=== PATIENT | male | born 1945 | race Caucasian/White ===

== ENCOUNTER 2017-06-07 10:40 | Emergency (ER) | payer MEDICARE, MEDICAID ==
[2017-06-07] MEDS ORDERED: ACETAMINOPHEN 500 MG TABLET PO ONE (11:27)
[2017-06-07] MEDS ORDERED: 0.9 % SODIUM CHLORIDE 1000ML 1,000 ML IV PRN (11:34)
--- NOTE | 2017-06-07 11:39 | Emergency Department Record ---
History of Present Illness - General Chief complaint: Weakness Stated complaint: WEAKNESS Time Seen by Provider: 06/07/17 11:06 Source: Patient, RN notes reviewed Mode of Arrival: EMS - History of Present Illness Initial comments: diarrhea and vomiting for three days and fever and weakness and came in by EMS. Abdomen not painful. right lower leg his red with cellulitis from foot and a heel ulcer. cough . Primary DR. Garcia Onset/Timin -: Days(s) Location: Generalized Improves with: Rest Worsens with: Exertion Context: Recent illness Associated Symptoms: Fever/chills, Other - Mehdi Coma Scale Eye Response: (4) Open spontaneously Motor Response: (6) Obeys commands Verbal Response: (5) Oriented [place] Total: 15 - Related Data Home Medications Medication Instructions Recorded Confirmed Last Taken Atorvastatin Calcium 10 mg PO DAILY 03/15/16 06/07/17 06/06/17 Gemfibrozil 600 mg PO BID 03/15/16 06/07/17 06/06/17 Previous Rx's Medication Instructions Recorded Diltiazem HCl [Cardizem Cd] 240 mg PO DAILY capcr 04/09/16 Furosemide [Lasix] 40 mg PO DAILY #30 tablet 04/09/16 Nystatin 1 gm TOP BID #30 cream 04/09/16 Allergies Allergy/AdvReac Type Severity Reaction Status Date / Time amoxicillin trihydrate AdvReac DIARRHEA Verified 06/07/17 11:09 [From Augmentin] potassium clavulanate AdvReac DIARRHEA Verified 06/07/17 11:09 [From Augmentin] Travel Screening - Travel/Exposure Within Last 30 Days Have you traveled within the last 30 days?: No - Travel/Exposure Within Last Year Have you traveled outside the [place] in the last year?: No - Additonal Travel Details Have you been exposed to anyone with a communicable illness?: No - Travel Symptoms Symptom Screening: None Review of Systems Reviewed: No additional complaints except as noted below Constitutional: Reports: As per HPI. Denies: Chills, Fever, Malaise, Night sweats, Weakness, Weight change Eyes: Reports: As per HPI. Denies: Eye discharge, Eye pain, Photophobia, Vision change ENT: Reports: As per HPI. Denies: Congestion, Dental pain, Ear pain, Epistaxis , Hearing loss, Throat pain Respiratory: Reports: As per HPI, Cough. Denies: Dyspnea, Hemoptysis, Stridor, Wheezes Cardiovascular: Reports: As per HPI. Denies: Arrhythmia, Chest pain, Dyspnea on exertion, Edema, Murmurs, Orthopnea, Palpitations, Paroxysmal nocturnal dyspnea, Rheumatic Fever, Syncope Endocrine: Reports: As per HPI. Denies: Fatigue, Heat or cold intolerance, Polydipsia, Polyuria Gastrointestinal: Reports: As per HPI, Diarrhea, Nausea, Vomiting. Denies: Abdominal pain, Constipation, Hematemesis, Hematochezia, Melena Genitourinary: Reports: As per HPI. Denies: Dysuria, Frequency, Hematuria, Incontinence, Retention, Testicular pain, Testicular mass, Urgency Musculoskeletal: Reports: As per HPI. Denies: Arthralgia, Back pain, Gout, Joint swelling, Myalgia, Neck pain Skin: Reports: As per HPI. Denies: Bruising, Change in color, Change in hair/ nails, Lesions, Pruritus, Rash Neurological: Reports: As per HPI. Denies: Abnormal gait, Confusion, Headache, Numbness, Paresthesias, Seizure, Tingling, Tremors, Vertigo, Weakness Psychiatric: Reports: As per HPI. Denies: Anxiety, Auditory hallucinations, Depression, Homicidal thoughts, Suicidal thoughts, Visual hallucinations Hematological/Lymphatic: Reports: As per HPI. Denies: Anemia, Blood Clots, Easy bleeding, Easy bruising, Swollen glands Past Medical History - SOCIAL HISTORY Smoking Status: Former smoker Alcohol Use: None Drug Use: None - RESPIRATORY Hx Respiratory Disorders: No - CARDIOVASCULAR Hx Cardio Disorders: Yes Hx Hypertension: Yes Hx Vascular Disease: Yes (left AKA amputation 2010 from DM) Comment:: high cholesterol - NEURO Hx Neuro Disorders: No Hx Seizures: No - GI Hx GI Disorders: No - Hx Genitourinary Disorders: No - ENDOCRINE Hx Endocrine Disorders: Yes Hx Diabetes: Yes (IDDM 2007 on lantus at home 85 units prior to hospitaliztion) Hx Thyroid Disease: No - MUSCULOSKELETAL Hx Musculoskeletal Disorders: No - PSYCH Hx Psych Problems: No - HEMATOLOGY/ONCOLOGY Hx Hematology/Oncology Disorders: No Family Medical History Any Significant Family History?: Yes Hx Cancer: Father Physical Exam - General General Appearance: Alert, Oriented x3, Cooperative, Mild distress - Head Head exam: Normal inspection - Eye Eye exam: Normal appearance, PERRL Pupils: Normal accommodation - ENT ENT exam: Normal exam, Mucous membranes moist, Normal external ear exam, Normal orophraynx, TM's normal bilaterally Ear exam: Normal external inspection. negative: External canal tenderness Nasal Exam: Normal inspection. negative: Discharge, Sinus tenderness Mouth exam: Normal external inspection, Tongue normal Teeth exam: Normal inspection. negative: Dental caries Throat exam: Normal inspection. negative: Tonsillar erythema, Tonsillar exudate - Neck Neck exam: Normal inspection, Full ROM. negative: Tenderness - Respiratory Respiratory exam: Normal lung sounds bilaterally. negative: Respiratory distress - Cardiovascular Cardiovascular Exam: Regular rate, Normal rhythm, Normal heart sounds - GI/Abdominal GI/Abdominal exam: Soft, Normal bowel sounds. negative: Tenderness - Rectal Rectal exam: Deferred - exam: Deferred - Extremities Extremities exam: Full ROM, Normal capillary refill, Other (redness of the right foot and lower leg and ulcer on the lateral heel area and small sacral decubitis). negative: Tenderness - Back Back exam: Reports: Normal inspection, Full ROM. Denies: Muscle spasm, Rash noted, Tenderness - Neurological Neurological exam: Alert, Normal gait, Oriented X3, Reflexes normal - Psychiatric Psychiatric exam: Normal affect, Normal mood - Skin Skin exam: Dry, Intact, Normal color, Warm Course Vital Signs 06/07/17 11:11 Temperature 103.2 F H Pulse Rate 110 H Respiratory 20 Rate Blood Pressure 119/62 Pulse Ox 94 L - Reevaluation(s) Reevaluation #1: discussed case with Dr. Walker and will transfer to [facility] 06/07/17 14:37 Medical Decision Making - Lab Data Result diagrams: 06/07/17 10:30 06/07/17 10:30 Disposition Clinical Impression: Cellulitis of leg Qualifiers: Laterality: right Qualified Code(s): L03.115 - Cellulitis of right lower limb Sepsis Qualifiers: Sepsis type: sepsis due to unspecified organism Qualified Code(s): A41.9 - Sepsis, unspecified organism Renal failure (ARF), acute on chronic Qualifiers: Acute renal failure type: unspecified Chronic kidney disease stage: stage 4 ( severe) Qualified Code(s): N17.9 - Acute kidney failure, unspecified; N18.4 - Chronic kidney disease, stage 4 (severe) Ulcerated, foot Qualifiers: Laterality: right Non-pressure ulcer stage: limited to breakdown of skin Qualified Code(s): L97.511 - Non-pressure chronic ulcer of other part of right foot limited to breakdown of skin Sacral decubitus ulcer Qualifiers: Pressure ulcer stage: unspecified pressure ulcer stage Qualified Code(s): L89.159 - Pressure ulcer of sacral region, unspecified stage Forms: Patient Portal Access Quality - Quality Measures Quality Measures: N/A - Blood Pressure Screening Blood Pressure Classification: Normal BP Reading Systolic Measurement: 119 Diastolic Measurement: 62 Screening for High Blood Pressure: < Normal BP, F/U Not Required > [[id number]] Normal BP Follow-up Interventions: No follow-up required
[2017-06-07 11:43] LABS: HEMATOCRIT 32.2 % (42.0-52.0); HEMOGLOBIN 10.8 gm/dl (14.0-18.0); MEAN CELL VOLUME 85.9 fl (81-97); MEAN CORPUSCULAR HEMOGLOBIN 28.8 pg (27-33); MEAN CORPUSCULAR HGB CONC 33.5 g/dl (32-36); MEAN PLATELET VOLUME 9.9 fl (7.4-10.4); PLATELET COUNT 328 K/uL (130-400); RED BLOOD COUNT 3.75 M/uL (4.40-5.70); RED CELL DISTRIBUTION WIDTH 14.9 % (11.5-14.5); WHITE BLOOD COUNT W/O DIFF 18.5 K/uL (4.2-12.2)
[2017-06-07 11:59] LABS: PLATELET ESTIMATE NORMAL (NORMAL)
[2017-06-07 12:09] LABS: ALBUMIN 3.9 gm/dL (3.5-5.0); ANION GAP 17.4 (7-16); BILIRUBIN,TOTAL 1.03 mg/dL (0.2-1.3); CARBON DIOXIDE 15.6 mmol/L (22-30); CREATININE 3.6 mg/dL (0.66-1.25); TOTAL PROTEIN 7.6 gm/dL (6.3-8.2)
[2017-06-07 13:41] LABS: URINE APPEARANCE CLEAR; URINE BILIRUBIN NEGATIVE (NEGATIVE); URINE BLOOD SMALL (NEGATIVE); URINE COLOR YELLOW; URINE GLUCOSE (UA) NEGATIVE (NEGATIVE); URINE KETONE NEGATIVE (NEGATIVE); URINE LEUKOCYTE ESTERASE NEGATIVE (NEGATIVE); URINE NITRITE NEGATIVE (NEGATIVE); URINE UROBILINOGEN 0.2 E.U./dL (0.20 - 1.00)
[2017-06-07] MEDS ORDERED: 0.9 % SODIUM CHLORIDE 1000ML 1,000 ML IV ONE (13:42)
[2017-06-07] MEDS ORDERED: LEVOFLOXACIN/D5W 750 MG/150 ML BAG IVPB ONE (13:43)
[2017-06-07 13:53] LABS: URINE AMORPHOUS SEDIMENT 2+; URINE EPITHELIAL CELLS NONE SEEN (FEW); URINE WBC NONE SEEN (0-2/hpf)
--- NOTE | 2017-06-08 12:14 | RADIOLOGY REPORT ---
EXAM: CHEST, TWO VIEWS HISTORY: COUGH. TECHNIQUE: Frontal and lateral views of the chest were performed. FINDINGS: The heart size is normal. The lung devries are clear. The osseous structures are normal. IMPRESSION: NO ACUTE DISEASE PROCESS. JOB NUMBER: [id number] MTDD
== END 2017-06-07 15:29 | disposition short-term general hospital (02) ==
LOC: ER 10:40
DX: A41.9 Sepsis, unspecified organism (principal); L03.115 Cellulitis of right lower limb; L89.150 Pressure ulcer of sacral region, unstageable; Z79.4 Long term (current) use of insulin; R19.7 Diarrhea, unspecified; N17.9 Acute kidney failure, unspecified; N18.4 Chronic kidney disease, stage 4 (severe); I10 Essential (primary) hypertension; Z87.891 Personal history of nicotine dependence
CPT/HCPCS: 99285 ×2; 96374; 96361; 83690; 80076; 80048; 81001; 87493; 85027; 71020; J1956

== ENCOUNTER 2017-06-19 19:24 | Inpatient (IN) | payer MEDICARE, SELFPAY ==
[2017-06-19] MEDS ORDERED: ONDANSETRON 4 MG ODT TABLET SL PRN (22:49)
[2017-06-19] MEDS ORDERED: DIPHENHYDRAMINE HCL 25 MG CAPSULE PO PRN (22:49)
[2017-06-19] MEDS ORDERED: ACETAMINOPHEN 500 MG TABLET PO PRN (22:49)
[2017-06-19] MEDS ORDERED: NYSTATIN 15 GM POWDER TP PRN (23:17)
[2017-06-19] MEDS: GEMFIBROZIL 600 MG TABLET PO SCH (23:56)
[2017-06-19] MEDS: METRONIDAZOLE 250 MG TABLET PO SCH (23:56)
[2017-06-20] MEDS: CEFAZOLIN 2 Gram 2 GM/50 ML BAG IVPB SCH ×3 (02:25→18:04)
[2017-06-20] MEDS: PANTOPRAZOLE SODIUM 40 MG TABLET PO SCH ×2 (06:42→18:05)
[2017-06-20] MEDS: METRONIDAZOLE 250 MG TABLET PO SCH ×3 (06:42→22:01)
[2017-06-20] MEDS: NOVOLOG FLEXPEN (INSULIN ASPART) 100 UNITS/ML SQ SCH ×4 (08:36→22:03)
[2017-06-20] MEDS: LEVEMIR FLEXTOUCH 100 UNIT/ML INSULIN PEN SQ SCH ×3 (08:43→18:35)
[2017-06-20] MEDS: LISINOPRIL 10 MG TABLET PO SCH (09:24)
[2017-06-20] MEDS: GEMFIBROZIL 600 MG TABLET PO SCH ×2 (09:24→22:00)
[2017-06-20] MEDS: ENOXAPARIN 30 MG/0.3 ML SYR SQ SCH (09:26)
[2017-06-20] MEDS: HEPARIN SODIUM FLUSH 100 UNITS/ML SYR 5ML IVP PRN ×2 (11:04→18:35)
[2017-06-20] MEDS: 0.9 % SODIUM CHLORIDE 10ML SYR IVP SCH ×5 (11:04→22:01)
--- NOTE | 2017-06-20 15:12 | History & Physical ---
History of Present Illness - Date Date of Service for History & Physical: 06/20/17 - History of Present Illness Admitting Diagnosis: diabetic foot ulcer with osteomyelitis. Diabetes mellitus type 2 with insulin use. Left AKA 2010. PAD. hypercholesterolemia. hypertension arthritis of both hands History of Present Illness: Patient developed a right foot ulcer with sepsis and seen At [facility] ED and transferred to [facility] and started on IV therapy with Infectious Disease Dr. Roque. Patient at [facility] for about 10 days and has a pic line and on 8 weeks of cefazolin 2 gms every 8 hours and oral flagyl 500 mg every 8 hours for [address] Garcia and Infectious disease Dr. Roque and he wanted to see him in 2-4 weeks. Patient is here because of deconditioning and IV antibiotics. 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 Level of Education: High School Preferred Method of Learning: Seeing Comprehension Ability: No Impairment Able to Read: Yes Able to Write: No (arthritis in hand) Select best description of speech pattern: Clear Speech Ability to express ideas and wants: Understood Understanding verbal content: Understands - Mood and Behavior Patterns Appearance: Disheveled Mood: Normal Attitude: Cooperative Motor Activity: Calm Affect: Appropriate Hallucinations: Denies - Psychosocial Well-Being Usual Living Arrangement: Spouse - Physical Functioning Activity Level: Up with assist x1 Turning: Self ad melida ROM Ability: Within Normal Limits Assistive Devices: Wheel Chair Ambulation Ability: Needs Assist Bed Mobility: Independent Transfer Ability: Needs Assist Bathing Ability: Needs Assist Personal Hygiene: Needs Assist Dressing Ability: Needs Assist Eating (Feeding) Ability: Independent Toileting Ability: Needs Assist Administer Own Medication: Independent - Continence Bowel Pattern: Diarrhea Bladder Pattern: Normal - Dental Status Unable to examine: No Broken or loosely fitting full or partial dentures: Yes No natural teeth or tooth fragment(s) (edentulous): No Abnormal mouth tissue (ulcers, masses, oral lesions, etc.): No Obvious or likely cavity or broken natural teeth: No Inflamed or bleeding gums or loose natural teeth: No Mouth/facial pain, discomfort or difficulty chewing: No - Nutrition Screening Poor oral intake > 1 week: No Unplanned weight loss in specified time frame: No Nutrition Support via tube feedings or parenteral nutrition: No Pressure Ulcer: Yes Significantly underweight define as BMI <18.5 kg/m2: No Albumin <2.5mg/dL: No Persistent nausea/vomiting/diarrhea >3 days: Yes Difficulty chewing/swallowing/mouth sores: No Admitting Diagnosis: No Nutrition Risk Score: High Risk Review of Systems Reviewed: No additional complaints except as noted below Constitutional: Reports: As per HPI. Denies: Chills, Fever, Malaise, Night sweats, Weakness, Weight change Eyes: Reports: As per HPI. Denies: Eye discharge, Eye pain, Photophobia, Vision change ENT: Reports: As per HPI. Denies: Congestion, Dental pain, Ear pain, Epistaxis , Hearing loss, Throat pain Respiratory: Reports: As per HPI. Denies: Cough, Dyspnea, Hemoptysis, Stridor, Wheezes Cardiovascular: Reports: As per HPI. Denies: Arrhythmia, Chest pain, Dyspnea on exertion, Edema, Murmurs, Orthopnea, Palpitations, Paroxysmal nocturnal dyspnea, Rheumatic Fever, Syncope Endocrine: Reports: As per HPI. Denies: Fatigue, Heat or cold intolerance, Polydipsia, Polyuria Gastrointestinal: Reports: As per HPI. Denies: Abdominal pain, Constipation, Diarrhea, Hematemesis, Hematochezia, Melena, Nausea, Vomiting Genitourinary: Reports: As per HPI. Denies: Dysuria, Frequency, Hematuria, Incontinence, Retention, Testicular pain, Testicular mass, Urgency Musculoskeletal: Reports: As per HPI. Denies: Arthralgia, Back pain, Gout, Joint swelling, Myalgia, Neck pain Skin: Reports: As per HPI, Other (ulceration on the lateral side of right foot with black escar and skin is peeling, also on sacrum excoriated are times two and no ulers seen). Denies: Bruising, Change in color, Change in hair/nails, Lesions, Pruritus, Rash Neurological: Reports: As per HPI. Denies: Abnormal gait, Confusion, Headache, Numbness, Paresthesias, Seizure, Tingling, Tremors, Vertigo, Weakness Psychiatric: Reports: As per HPI. Denies: Anxiety, Auditory hallucinations, Depression, Homicidal thoughts, Suicidal thoughts, Visual hallucinations Hematological/Lymphatic: Reports: As per HPI. Denies: Anemia, Blood Clots, Easy bleeding, Easy bruising, Swollen glands Past Medical History - SOCIAL HISTORY Smoking Status: Former smoker Alcohol Use: None - SURGICAL HISTORY Past Surgical History: Left Above knee amputation 2006. bowel resection 2016 - RESPIRATORY Hx Respiratory Disorders: No - CARDIOVASCULAR Hx Cardio Disorders: Yes Hx Hypertension: Yes Hx Vascular Disease: Yes (left AKA amputation 2010 from DM) Comment:: high cholesterol - NEURO Hx Neuro Disorders: No Hx Seizures: No - GI Hx GI Disorders: No - Hx Genitourinary Disorders: No - ENDOCRINE Hx Endocrine Disorders: Yes Hx Diabetes: Yes (IDDM 2006 on lantus at home 85 units prior to hospitaliztion) Hx Thyroid Disease: No - MUSCULOSKELETAL Hx Musculoskeletal Disorders: No Hx Arthritis: Yes (both hands) - PSYCH Hx Psych Problems: No - HEMATOLOGY/ONCOLOGY Hx Hematology/Oncology Disorders: No Family Medical History Any Significant Family History?: Yes Hx Cancer: Father H&P Meds/Allergies - Allergies Allergies: Allergies Allergy/AdvReac Type Severity Reaction Status Date / Time amoxicillin trihydrate AdvReac DIARRHEA Verified 06/07/17 11:09 [From Augmentin] potassium clavulanate AdvReac DIARRHEA Verified 06/07/17 11:09 [From Augmentin] - Home Medications Home Medications Medication Instructions Recorded Confirmed Last Taken Atorvastatin Calcium 10 mg PO DAILY 03/15/16 06/07/17 06/06/17 Gemfibrozil 600 mg PO BID 03/15/16 06/07/17 06/06/17 Previous Rx's Medication Instructions Recorded Diltiazem HCl [Cardizem Cd] 240 mg PO DAILY capcr 04/09/16 Furosemide [Lasix] 40 mg PO DAILY #30 tablet 04/09/16 Nystatin 1 gm TOP BID #30 cream 04/09/16 - Active Medications Active Medications: Current Medications Acetaminophen (Tylenol 500mg Tab) 1,000 mg PO Q6H PRN PRN Reason: Fever >101 Atorvastatin Calcium (Lipitor) 10 mg PO QHS [facility] Diphenhydramine HCl (Benadryl Capsule) 25 mg PO Q6H PRN PRN Reason: ITCHING Enoxaparin Sodium (Lovenox) 30 mg SQ DAILY [facility] Last Admin: 06/20/17 09:26 Dose: 30 mg Gemfibrozil (Lopid) 600 mg PO BID [facility] Last Admin: 06/20/17 09:24 Dose: 600 mg Heparin Sodium (Porcine) () 500 unit IVP Q6HR PRN PRN Reason: iv flush Last Admin: 06/20/17 11:04 Dose: 500 unit Cefazolin Sodium (Kefzol) 2 gm in 50 mls @ 100 mls/hr IVPB Q8H [facility] Stop: 08/13/17 00:00 Last Infusion: 06/20/17 11:08 Dose: Infused Insulin Aspart (Novolog Flexpen) 1 unit SQ QIDINS [facility] PRN Reason: Protocol Last Admin: 06/20/17 13:27 Dose: 2 unit Insulin Detemir (Levemir Flextouch) 5 unit SQ BIDWM [facility] Last Admin: 06/20/17 08:46 Dose: Not Given Lisinopril (Zestril) 40 mg PO DAILY [facility] Last Admin: 06/20/17 09:24 Dose: 40 mg Metronidazole (Flagyl) 500 mg PO Q8H [facility] Last Admin: 06/20/17 06:42 Dose: 500 mg Nystatin (Nystop) 15 gm TP TID PRN PRN Reason: rash Ondansetron HCl (Zofran Odt) 4 mg SL Q6H PRN PRN Reason: NAUSEA/VOMITING Pantoprazole Sodium (Protonix) 40 mg PO BIDAC [facility] Last Admin: 06/20/17 06:42 Dose: 40 mg Sodium Chloride () 10 ml IVP Q8HR [facility] Last Admin: 06/20/17 11:04 Dose: 10 ml Physical Exam - Vital Signs Vital Signs: Vital Signs - Last 24 Hrs Temp Pulse Resp BP Pulse Ox 06/20/17 08:00 93 H 14 142/88 99 06/19/17 19:45 98.8 F 06/19/17 19:31 95 H 18 142/72 98 - General General Appearance: Alert, Oriented x3, Cooperative, No acute distress - Head Head exam: Normal inspection - Eye Eye exam: Normal appearance, PERRL Pupils: Normal accommodation - ENT ENT exam: Normal exam, Mucous membranes moist, Normal external ear exam, Normal orophraynx, TM's normal bilaterally Ear exam: Normal external inspection. negative: External canal tenderness Nasal Exam: Normal inspection. negative: Discharge, Sinus tenderness Mouth exam: Normal external inspection, Tongue normal Teeth exam: Normal inspection, Other (multiple teeth gone). negative: Dental caries Throat exam: Normal inspection. negative: Tonsillar erythema, Tonsillar exudate - Neck Neck exam: Normal inspection, Full ROM. negative: Tenderness - Respiratory Respiratory exam: Normal lung sounds bilaterally. negative: Respiratory distress - Cardiovascular Cardiovascular Exam: Regular rate, Normal rhythm, Normal heart sounds - GI/Abdominal GI/Abdominal exam: Soft, Normal bowel sounds. negative: Tenderness - Rectal Rectal exam: Deferred - exam: Deferred - Extremities Extremities exam: Full ROM, Normal capillary refill, Other (left leg above the knee). negative: Tenderness - Back Back exam: Reports: Normal inspection, Full ROM. Denies: Muscle spasm, Rash noted, Tenderness - Neurological Neurological exam: Alert, Normal gait, Oriented X3, Reflexes normal - Psychiatric Psychiatric exam: Normal affect, Normal mood - Skin Skin exam: Other (draining ulceration right later foot with loose skin and using luis carlos cream(collagenase),black escar and picture taken ) H&P Results - Labs Labs Last 24 Hours: Laboratory Results - last 24 hr 06/19/17 06/20/17 06/20/17 21:55 07:47 11:33 POC Glucose 154 H 142 H 224 H Discharge Potential - Discharge Needs Patient Discharge Plan Description: Return Home Plan - Swing Bed Certification Initial Certification Due: 06/19/17 14 Day Re-Cert Due: 07/03/17 44 Day Re-Cert Due: 08/02/17 74 Day Re-Cert Due: 09/01/17 - Detailed Diagnosis and Plan (1) Physical deconditioning Current Visit: No Status: Acute Base Code: R53.81 - OTHER MALAISE Priority : High Comment: discharge tomorrow and doing well (2) Diabetes Current Visit: No Status: Acute Qualifiers: Diabetes mellitus type: type 2 Diabetes mellitus complication status: with kidney complications Diabetes mellitus complication detail: with chronic kidney disease Diabetes mellitus terminal operations supervisor insulin use: with mcc use Chronic kidney disease stage: stage 4 (severe) Qualified Code(s): E11.22 - Type 2 diabetes mellitus with diabetic chronic kidney disease; N18.4 - Chronic kidney disease, stage 4 (severe); Z79.4 - snf (current) use of insulin Base Code: E11.9 - TYPE 2 DIABETES MELLITUS WITHOUT COMPLICATIONS Priority: Medium (3) Ulcerated, foot Current Visit: Yes Status: Acute Qualifiers: Laterality: right Non-pressure ulcer stage: limited to breakdown of skin Qualified Code(s): L97.511 - Non-pressure chronic ulcer of other part of right foot limited to breakdown of skin Base Code: L97.509 - NON-PRESSURE CHRONIC ULCER OTH PRT UNSP FOOT W UNSP SEVERITY Priority: High (4) Osteomyelitis of foot, acute Current Visit: Yes Status: Acute Base Code: M86.179 - OTHER ACUTE OSTEOMYELITIS, UNSPECIFIED ANKLE AND FOOT Priority: High Onset Date: ~ (5) History of sepsis Current Visit: Yes Status: Acute Base Code: Z86.19 - PERSONAL HISTORY OF OTHER INFECTIOUS AND PARASITIC DISEASES Priority: High Onset Date: ~ (6) Hypertension Current Visit: Yes Status: Acute Qualifiers: Hypertension type: essential hypertension Qualified Code(s): I10 - Essential (primary) hypertension Base Code: I10 - ESSENTIAL (PRIMARY) HYPERTENSION Priority: Low (7) PAD (peripheral artery disease) Current Visit: Yes Status: Acute Base Code: I73.9 - PERIPHERAL VASCULAR DISEASE, UNSPECIFIED Priority: Medium (8) CRF (chronic renal failure) Current Visit: No Status: Acute Qualifiers: Chronic kidney disease stage: stage 4 (severe) Qualified Code(s): N18.4 - Chronic kidney disease, stage 4 (severe) Base Code: N18.9 - CHRONIC KIDNEY DISEASE, UNSPECIFIED Priority: Medium Comment: discharge tomorrow (9) Cellulitis of leg Current Visit: Yes Status: Acute Qualifiers: Laterality: right Qualified Code(s): L03.115 - Cellulitis of right lower limb Base Code: L03.119 - CELLULITIS OF UNSPECIFIED PART OF LIMB Priority: Low
[2017-06-20] MEDS: ATORVASTATIN 20 MG TABLET PO SCH (22:00)
[2017-06-21] MEDS: CEFAZOLIN 2 Gram 2 GM/50 ML BAG IVPB SCH ×3 (02:05→20:08)
[2017-06-21] MEDS: HEPARIN SODIUM FLUSH 100 UNITS/ML SYR 5ML IVP PRN ×2 (02:49→12:02)
[2017-06-21] MEDS: 0.9 % SODIUM CHLORIDE 10ML SYR IVP SCH ×4 (02:49→21:42)
[2017-06-21] MEDS: PANTOPRAZOLE SODIUM 40 MG TABLET PO SCH ×2 (06:23→16:22)
[2017-06-21] MEDS: METRONIDAZOLE 250 MG TABLET PO SCH ×3 (06:24→22:07)
[2017-06-21 06:32] LABS: HEMATOCRIT 22.8 % (42.0-52.0); MEAN CELL VOLUME 90.5 fl (81-97); MEAN CORPUSCULAR HGB CONC 31.1 g/dl (32-36); PLATELET COUNT 383 K/uL (130-400); RED BLOOD COUNT 2.52 M/uL (4.40-5.70); RED CELL DISTRIBUTION WIDTH 14.8 % (11.5-14.5); WHITE BLOOD COUNT W/O DIFF 10.9 K/uL (4.2-12.2)
[2017-06-21 06:33] LABS: MEAN CORPUSCULAR HEMOGLOBIN 28.1 pg (27-33)
[2017-06-21 06:34] LABS: HEMOGLOBIN 7.1 gm/dl (14.0-18.0)
[2017-06-21 06:37] LABS: ANION GAP 9.4 (7-16); CARBON DIOXIDE 20.6 mmol/L (22-30); CREATININE 2.2 mg/dL (0.66-1.25)
[2017-06-21] MEDS: NOVOLOG FLEXPEN (INSULIN ASPART) 100 UNITS/ML SQ SCH ×4 (08:23→21:43)
[2017-06-21] MEDS: LEVEMIR FLEXTOUCH 100 UNIT/ML INSULIN PEN SQ SCH ×2 (08:24→20:16)
[2017-06-21] MEDS: GEMFIBROZIL 600 MG TABLET PO SCH ×2 (10:01→21:43)
[2017-06-21] MEDS: LISINOPRIL 10 MG TABLET PO SCH (10:01)
[2017-06-21] MEDS: ENOXAPARIN 30 MG/0.3 ML SYR SQ SCH (10:02)
--- NOTE | 2017-06-21 13:25 | Rehab Evaluation ---
Patient Information - Patient Information Diagnosis: Deconditioning IV ABX due to sepsis Ordered Treatment: PT Evaluate and Treat Status: Initial Evaluation Surgery: No History: Detail (Pt. reports history of above the knee amputation, pressure sores, sensory impairment RLE. PICC line inserted.) Past Med/Lilian Hx Detail: Detail (Above the knee amputation. Please see additional intake forms. Pt. reports that he is "legally blind".) Past Medical/Surgical Hx: PAST MEDICAL/SURGICAL HISTORY Past Surgical History Left Above knee amputation 2006 bowel resection 2015 PMH - Respiratory Hx Respiratory Disorders No PMH - Cardiovascular Hx Cardiovascular Disorders Yes Hx Hypertension Yes Hx Vascular Disease Yes: left AKA amputation 2009 from [facility] Comment: high cholesterol PMH - Neuro Hx Neurological Disorders No Hx Seizures No Hx Weakness Yes: deconditioned from hospitaliztion PMH - GI Hx Gastrointestinal Disorders No PMH - Hx Genitourinary Disorders No PMH - Endocrine Hx Endocrine Disorders Yes Hx Diabetes 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 reports independence with transfers except bathroom transfers. Pt. reports his assists him with bathroom transfers. Pt. reports that he has not had a fall to date.) Social History: Detail (Pt. lives with his in a single story apartment and has no steps leading into the home. Pt. has an elevated toilet seat, grab bars, shower chair, wheel chair, and front wheeled walker.) Precautions: [place], Fall - Time With Patient Total Time Spent With Patient (Min): 55 Treatment Procedures: Detail (Physical Therapy Evaluation Completed) Subjective Information - Subjective Information Per Patient (Pt. denies pain. He does report decreased sensation at the RLE.) Objective Data - Pain Pain Present: No - Mental Status Patient Orientation: Oriented x3 - Visual Perception Deficit - ROM Other (Within funtional limits except for wrists secondary to stiffness. He does report arthritis at the hands.) - Strength/Tone Within normal limits - Coordination Appears within normal limits for therapeutic activities - Bed Mobility Needs Assist (Bed mobility not assessed.) - Transfers Independent (Pt. was independent with sit to stand transfer. He did require verbal cueing to appropriately position his upper extremities.) - Balance Balance Sitting: Good Balance Standing: Fair (Pt. exhibits forward trunk lean and requires heavily on his upper extremities to remain upright. He was unable to stand upright and maintain midline positioning.) - Sensation Deficit (Pt. unable to feel the temperature of the floor with his RLE, although the extremity was heavily wrapped following debridement from wound care performed at [facility].) - Gait Detail (Not assessed.) - ADL's/IADL's Detail (Pt. was not assessed for donning and doffing clothing.) - Special Tests Yes (Negative Dennis's, RLE.) Therapy Assessment - Therapy Assessment Detail (Pt. exhibits balance impairment and poor safety awareness with transfers. He does appear to have functional extremity strength, however, needs to be further assessed for safety and functionality with bed mobility and standing for bed transfers while independent. The pt. presents with normal temperature at the right foot and does not exhibit signs of infection/wound compromise. Pt. exhibits low back/sacral ulcers that were covered; they did not present with warmth, streaking, or drainage outside of the bandage borders. The ulcers were covered and a pillow was placed to relieve pressure.) Patient Education - Patient Education Teaching Topic: Equipment Use Response: Return Demonstration Teaching Method: Discussion, Demonstration Teaching Recipient: Patient Barriers To Learning: None Problem List - Problem List Physical Therapy Problem List: Detail (1) Balance impairment 2) Poor safety awareness 3) Inability to assess gait 4) Inability to assess bed mobility 5) LE diminished sensation) Goals - Goals Physical Therapy Goals: 1) Pt. will exhibit good understanding of body mechanics /safety awareness with all transfers. 2) Pt. will be independent with all transfers except shower transfers. 3) Pt. will be independent with bed mobility. 4) Pt. will verbalize and demonstrate repositioning techniques while seated to decrease pressure at the sacrum/lower back. Prognosis - Prognosis Good Plan - Plan Physical Therapy Plan: Pt. will be seen 1-2x per day for inpatient physical therapy until goals met.
--- NOTE | 2017-06-21 14:47 | Rehab Evaluation ---
Patient Information - Patient Information Diagnosis: diabetic foot ulcer with osteomyelitis Ordered Treatment: OT Evaluate and Treat Status: Initial Evaluation Surgery: No History: Detail (Pt. reports history of above the knee amputation, pressure sores, sensory impairment RLE. PICC line inserted.) Past Med/Lilian Hx Detail: Detail (Above the knee amputation. Please see additional intake forms. Pt. reports that he is "legally blind".) Past Medical/Surgical Hx: PAST MEDICAL/SURGICAL HISTORY Past Surgical History Left Above knee amputation 2006 bowel resection 2016 PMH - Respiratory Hx Respiratory Disorders No PMH - Cardiovascular Hx Cardiovascular Disorders Yes Hx Hypertension Yes Hx Vascular Disease Yes: left AKA amputation 2009 from [facility] Comment: high cholesterol PMH - Neuro Hx Neurological Disorders No Hx Seizures No Hx Weakness Yes: deconditioned from hospitaliztion PMH - GI Hx Gastrointestinal Disorders No PMH - Hx Genitourinary Disorders No PMH - Endocrine Hx Endocrine Disorders Yes Hx 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 He has an elevated toilet seat with grab bars, a walk in shower with a shower chair and grab bars as well as a wheelchair and front wheeled walker. He is Ind with self cares with the exception of transferring into the shower, his assists him. He and spouse share home mgmt, meal prep and laundry. Pt uses wheelchair for all mobility except transferring to toilet at which time he uses the walker.) Precautions: [place], Fall, Other (Legally blind) - Time With Patient Total Time Spent With Patient (Min): 60 Treatment Procedures: Detail (OT eval low complexity) Subjective Information - Subjective Information Per Patient Objective Data - Pain Pain Present: No - Mental Status Patient Orientation: Oriented x3 - Visual Perception Deficit (Pt reports he is legally blind, he cannot read but he can see larger objects.) - ROM Not within normal limits (Toño shoulders and elbows WNL AROM, toño wrists and hands present with arthritis and he has stiffness in all fingers. Pt reports this is longstanding.) - Strength/Tone Within normal limits (Toño UE MMT 5/5 throughout.) - Coordination Deficit (Pt has longstanding h/o decreased finger motion due to arthritis, he had moderate difficulty holding razor and was unable to open shaving cream container.) - Transfers Needs Assist (Sit to stand from wheelchair with verbal cues and use of walker.) - Balance Balance Sitting: Good Balance Standing: Poor - Sensation Intact - Gait Detail (Pt able to static stand for several seconds. Gait was not assesses as pt was very minimally ambulatory prior to admission.) - ADL's/IADL's Detail (Pt reports he has been completing toileting with SBA from nursing. He was able to complete shaving at sink with set up, assist to open shaving cream and minimal assist due to difficulty holding razor.) Therapy Assessment - Therapy Assessment Detail (Pt presents with decreased Ind with self cares including total body dressing, showering and grooming/hygiene as well as decreased functional mobility needed for safe and Ind return home with .) Problem List - Problem List Physical Therapy Problem List: Detail (1) Balance impairment 2) Poor safety awareness 3) Inability to assess gait 4) Inability to assess bed mobility 5) LE diminished sensation) Occupational Therapy Problem List: Detail (1. Decreased Ind with showering 2. Decreased Ind with total body dressing 3. Decreased coordination needed for Ind ADLs 4. Decreased functional mobility needed for safe and Ind return home) Goals - Goals Physical Therapy Goals: 1) Pt. will exhibit good understanding of body mechanics /safety awareness with all transfers. 2) Pt. will be independent with all transfers except shower transfers. 3) Pt. will be independent with bed mobility. 4) Pt. will verbalize and demonstrate repositioning techniques while seated to decrease pressure at the sacrum/lower back. Occupational Therapy Goals: 1. Pt will be safe and Ind with showering in sitting 2. Pt will be Ind with total body dressing 3. Pt will improve coordination to allow Ind with grooming/hygiene tasks 4. Pt will be safe and Ind with functional mobility needed for ADLs/IADLs. Prognosis - Prognosis Good Plan - Plan Physical Therapy Plan: Pt. will be seen 1-2x per day for inpatient physical therapy until goals met. Occupational Therapy Plan: OT 1-4 times per week to address self cares, functional mobility, UE coordination needed for safe and Ind return home.
[2017-06-21] MEDS: FERROUS SULFATE 325 MG TAB PO SCH (16:22)
[2017-06-21] MEDS: ASCORBIC ACID 500 MG TAB PO SCH (16:22)
[2017-06-21] MEDS: ATORVASTATIN 20 MG TABLET PO SCH (21:42)
[2017-06-22] MEDS: CEFAZOLIN 2 Gram 2 GM/50 ML BAG IVPB SCH ×3 (06:35→22:18)
[2017-06-22] MEDS: 0.9 % SODIUM CHLORIDE 10ML SYR IVP SCH ×3 (06:39→22:19)
[2017-06-22] MEDS: PANTOPRAZOLE SODIUM 40 MG TABLET PO SCH ×2 (06:42→17:34)
[2017-06-22] MEDS: METRONIDAZOLE 250 MG TABLET PO SCH ×3 (07:06→22:22)
[2017-06-22] MEDS: NOVOLOG FLEXPEN (INSULIN ASPART) 100 UNITS/ML SQ SCH ×4 (08:40→22:25)
[2017-06-22] MEDS: LEVEMIR FLEXTOUCH 100 UNIT/ML INSULIN PEN SQ SCH ×2 (08:41→17:36)
[2017-06-22] MEDS: GEMFIBROZIL 600 MG TABLET PO SCH ×2 (09:25→22:22)
[2017-06-22] MEDS: FERROUS SULFATE 325 MG TAB PO SCH (09:25)
[2017-06-22] MEDS: ENOXAPARIN 30 MG/0.3 ML SYR SQ SCH (09:25)
[2017-06-22] MEDS: ASCORBIC ACID 500 MG TAB PO SCH (09:26)
[2017-06-22] MEDS: COLLAGENASE 30 GM TUBE TOP SCH (09:26)
[2017-06-22] MEDS: LISINOPRIL 10 MG TABLET PO SCH (09:27)
--- NOTE | 2017-06-22 11:10 | Physical Therapy Tx Note ---
Physical Therapy Tx Note - Treatment Note Tolerated: Good Total Time Spent With Patient: 30 Physical Therapy Tx Note: Detail (The patient was up in a chair when PT arrived. The patient completed wheelchair to bed transfer independently using front approach with supervision for safety only. The patient was independent with supine to and from sit transfer and scooting up in bed with use of trapeze. LE exercises were completed including: R ankle pumps , SLR, supine hip abduction , gluteal sets, L isometric hip flexors and gluteals and hip abduction. The patient was independent with wheelchair mobility a distance of 180 feet x 1.) Physical Therapy Problem List: Detail (1) Balance impairment 2) Poor safety awareness 3) Inability to assess gait 4) Inability to assess bed mobility 5) LE diminished sensation) Physical Therapy Goals: 1) Pt. will exhibit good understanding of body mechanics /safety awareness with all transfers. 2) Pt. will be independent with all transfers except shower transfers. 3) Pt. will be independent with bed mobility. 4) Pt. will verbalize and demonstrate repositioning techniques while seated to decrease pressure at the sacrum/lower back. Physical Therapy Plan: Pt. will be seen 1-2x per day for inpatient physical therapy until goals met.
--- NOTE | 2017-06-22 15:14 | Occupational Therapy Tx Note ---
Occupational Therapy Tx Note - Treatment Note Tolerated: Good Total Time Spent With Patient: 45 (ADL) Occupational Therapy Treatment Note: Detail (S: Pt feeling well this am. O: Supine to sit Indly. Stand pivot transfer from EOB to wheelchair with CG assist. Pt propelled self to shower and completed pivot transfer to shower bench with CG assist. Pt completed shower in sitting with min assist for opening small shampoo container and to manipulate hand held shower due to decreased hand coordination. Pt able to dry self Indly. Pivot transferred to wheelchair and then to commode with CG assist. Completed toileting with max assist for pericare. Pt reports his toilet set up at home allows more room for toileting hygiene. Pt donned gown with mod assist. Pt combed hair Indly. Propelled back to room per therapist. Pt left up in chair with breakfast. A: CG assist for pivot transfers, max assist for toileting hygiene, min assist for showering due to decreased hand coordination) Occupational Therapy Problem List: Detail (1. Decreased Ind with showering 2. Decreased Ind with total body dressing 3. Decreased coordination needed for Ind ADLs 4. Decreased functional mobility needed for safe and Ind return home) Occupational Therapy Goals: 1. Pt will be safe and Ind with showering in sitting 2. Pt will be Ind with total body dressing 3. Pt will improve coordination to allow Ind with grooming/hygiene tasks 4. Pt will be safe and Ind with functional mobility needed for ADLs/IADLs. Prognosis: Good Occupational Therapy Plan: OT 1-4 times per week to address self cares, functional mobility, UE coordination needed for safe and Ind return home.
[2017-06-22] MEDS: ATORVASTATIN 20 MG TABLET PO SCH (22:19)
[2017-06-23] MEDS: CEFAZOLIN 2 Gram 2 GM/50 ML BAG IVPB SCH ×3 (06:18→22:41)
[2017-06-23] MEDS: 0.9 % SODIUM CHLORIDE 10ML SYR IVP SCH ×3 (06:18→22:42)
[2017-06-23] MEDS: PANTOPRAZOLE SODIUM 40 MG TABLET PO SCH ×2 (06:19→15:46)
[2017-06-23] MEDS: METRONIDAZOLE 250 MG TABLET PO SCH ×3 (06:19→22:41)
[2017-06-23] MEDS: NOVOLOG FLEXPEN (INSULIN ASPART) 100 UNITS/ML SQ SCH ×4 (08:05→22:42)
[2017-06-23] MEDS: LEVEMIR FLEXTOUCH 100 UNIT/ML INSULIN PEN SQ SCH ×2 (08:06→17:46)
[2017-06-23] MEDS: FERROUS SULFATE 325 MG TAB PO SCH (09:47)
[2017-06-23] MEDS: GEMFIBROZIL 600 MG TABLET PO SCH ×2 (09:48→22:41)
[2017-06-23] MEDS: ENOXAPARIN 30 MG/0.3 ML SYR SQ SCH (09:48)
[2017-06-23] MEDS: ASCORBIC ACID 500 MG TAB PO SCH (09:49)
[2017-06-23] MEDS: COLLAGENASE 30 GM TUBE TOP SCH (09:49)
[2017-06-23] MEDS: LISINOPRIL 10 MG TABLET PO SCH (09:49)
--- NOTE | 2017-06-23 10:46 | Physical Therapy Tx Note ---
Physical Therapy Tx Note - Treatment Note Tolerated: Good Total Time Spent With Patient: 25 Physical Therapy Tx Note: Detail (The patient transferred wheelchair to and from bed with supervision for safety. The patient propelled wheelchair 150 feet x 1 with 2 rest breaks. The patient stood to walker 50 sec x 1 and 60 seconds x 1. Shortness of breath was noted with standing. The patient required less rest periods today with wheelchair mobility.) Physical Therapy Problem List: Detail (1) Balance impairment 2) Poor safety awareness 3) Inability to assess gait 4) Inability to assess bed mobility 5) LE diminished sensation) Physical Therapy Goals: 1) Pt. will exhibit good understanding of body mechanics /safety awareness with all transfers. 2) Pt. will be independent with all transfers except shower transfers. 3) Pt. will be independent with bed mobility. 4) Pt. will verbalize and demonstrate repositioning techniques while seated to decrease pressure at the sacrum/lower back. Physical Therapy Plan: Pt. will be seen 1-2x per day for inpatient physical therapy until goals met.
--- NOTE | 2017-06-23 15:22 | Occupational Therapy Tx Note ---
Occupational Therapy Tx Note - Treatment Note Tolerated: Good Total Time Spent With Patient: 35 (ther ex) Occupational Therapy Treatment Note: Detail (S: Pt up in wheelchair, cooperative and pleasant. O: Pt transported to rehab gym via wheelchair. Electrical Equipment Technician tested as follows: Right 27#, 37# Left 31#, 32#. Toño hand and finger stretches performed due to finger flexion contractures. Toño hand sponge squeezes - 23 each. Red theraputty exercises for gross grasp and rolling for finger extension. Pt provided with red putty for exercise program and will require ongoing teaching. Toño wrist and finger stretches and prayer stretches performed with physical cueing. Attempted clothespin pinches with physical assist, pt has difficulty with fingertip to thumb pinch in toño hands with thenar wasting noted. Pt transported back to room via wheelchair. A: Toño hand contractures and thenar wasting noted.) Occupational Therapy Problem List: Detail (1. Decreased Ind with showering 2. Decreased Ind with total body dressing 3. Decreased coordination needed for Ind ADLs 4. Decreased functional mobility needed for safe and Ind return home) Occupational Therapy Goals: 1. Pt will be safe and Ind with showering in sitting 2. Pt will be Ind with total body dressing 3. Pt will improve coordination to allow Ind with grooming/hygiene tasks 4. Pt will be safe and Ind with functional mobility needed for ADLs/IADLs. Prognosis: Good Occupational Therapy Plan: OT 1-4 times per week to address self cares, functional mobility, UE coordination needed for safe and Ind return home.
[2017-06-23] MEDS: ATORVASTATIN 20 MG TABLET PO SCH (22:41)
[2017-06-24] MEDS: PANTOPRAZOLE SODIUM 40 MG TABLET PO SCH ×2 (06:12→17:21)
[2017-06-24] MEDS: METRONIDAZOLE 250 MG TABLET PO SCH ×3 (06:12→22:11)
[2017-06-24] MEDS: CEFAZOLIN 2 Gram 2 GM/50 ML BAG IVPB SCH ×3 (06:12→22:11)
[2017-06-24] MEDS: 0.9 % SODIUM CHLORIDE 10ML SYR IVP SCH ×4 (06:14→22:11)
[2017-06-24] MEDS: NOVOLOG FLEXPEN (INSULIN ASPART) 100 UNITS/ML SQ SCH ×4 (07:54→22:12)
[2017-06-24] MEDS: LEVEMIR FLEXTOUCH 100 UNIT/ML INSULIN PEN SQ SCH ×2 (08:13→17:21)
--- NOTE | 2017-06-24 10:26 | Physical Therapy Tx Note ---
Physical Therapy Tx Note - Treatment Note Tolerated: Good Total Time Spent With Patient: 25 Physical Therapy Tx Note: Detail (Patient states feeling well today. Patient propelled self in wheelchair x362 feet using UEs and right LE. Patient transferred sit to and from stand CGA x1. Patient performed the following exercises x10-12 reps each: seated heel raises, seated toe raises, seated right hip flexion, seated isometric hip abduction, seated isometric hip adduction, right LAQ, right hamstring curls with red theraband, glut squeezes, standing left hip abduction, and standing left hip extension. Patient tolerated treatment well. Patient required several attempts with sit to stand. Patient displays decreased strength and endurance with seated hip flexion, glut squeezes , seated hip abduction, seated hip adduction, and standing hip abduction and extension. Patient was left seated in chair with call light within reach.) Physical Therapy Problem List: Detail (1) Balance impairment 2) Poor safety awareness 3) Inability to assess gait 4) Inability to assess bed mobility 5) LE diminished sensation) Physical Therapy Goals: 1) Pt. will exhibit good understanding of body mechanics /safety awareness with all transfers. 2) Pt. will be independent with all transfers except shower transfers. 3) Pt. will be independent with bed mobility. 4) Pt. will verbalize and demonstrate repositioning techniques while seated to decrease pressure at the sacrum/lower back. Prognosis: Good Physical Therapy Plan: Pt. will be seen 1-2x per day for inpatient physical therapy until goals met.
[2017-06-24] MEDS: ENOXAPARIN 30 MG/0.3 ML SYR SQ SCH (10:59)
[2017-06-24] MEDS: ASCORBIC ACID 500 MG TAB PO SCH (11:00)
[2017-06-24] MEDS: GEMFIBROZIL 600 MG TABLET PO SCH ×2 (11:00→22:10)
[2017-06-24] MEDS: LISINOPRIL 10 MG TABLET PO SCH (11:00)
[2017-06-24] MEDS: FERROUS SULFATE 325 MG TAB PO SCH (11:00)
[2017-06-24] MEDS: COLLAGENASE 30 GM TUBE TOP SCH (11:03)
--- NOTE | 2017-06-24 15:03 | Physical Therapy Tx Note ---
Physical Therapy Tx Note - Treatment Note Tolerated: Good Total Time Spent With Patient: 20 Physical Therapy Tx Note: Detail (Patient states doing well. Patient states feeling a little more tired this afternoon. Patient transferred seated on bed to wheelchair SBA x1. Patient propelled self in wheelchair x364 feet. Patient performed the following exercises x10-15 reps each: seated heel raises, seated toe raises, LAQ, hamstring curls with red theraband, glut squeezes, abdominal isometrics, seated hip flexion, dips, isometric hip adduction, and right hip abduction with red theraband. Patient tolerated treatment well. Patient required rest breaks with propelling wheelchair. Patient displays decreased strength and endurance with LAQ, seated hip flexion, dips, seated hamstring curls, abdominal isometrics, and seated hip abduction with theraband. Patient reports fatigued after treatment. Patient was left seated in wheelchair with call light within reach.) Physical Therapy Problem List: Detail (1) Balance impairment 2) Poor safety awareness 3) Inability to assess gait 4) Inability to assess bed mobility 5) LE diminished sensation) Physical Therapy Goals: 1) Pt. will exhibit good understanding of body mechanics /safety awareness with all transfers. 2) Pt. will be independent with all transfers except shower transfers. 3) Pt. will be independent with bed mobility. 4) Pt. will verbalize and demonstrate repositioning techniques while seated to decrease pressure at the sacrum/lower back. Prognosis: Good Physical Therapy Plan: Pt. will be seen 1-2x per day for inpatient physical therapy until goals met.
[2017-06-24] MEDS: HEPARIN SODIUM FLUSH 100 UNITS/ML SYR 5ML IVP PRN (15:46)
[2017-06-24] MEDS: ATORVASTATIN 20 MG TABLET PO SCH (22:10)
[2017-06-25] MEDS: PANTOPRAZOLE SODIUM 40 MG TABLET PO SCH ×2 (06:16→16:07)
[2017-06-25] MEDS: METRONIDAZOLE 250 MG TABLET PO SCH ×3 (06:17→22:35)
[2017-06-25] MEDS: 0.9 % SODIUM CHLORIDE 10ML SYR IVP SCH ×5 (06:17→18:55)
[2017-06-25] MEDS: NOVOLOG FLEXPEN (INSULIN ASPART) 100 UNITS/ML SQ SCH ×4 (08:15→22:36)
[2017-06-25] MEDS: LEVEMIR FLEXTOUCH 100 UNIT/ML INSULIN PEN SQ SCH ×2 (08:20→18:03)
--- NOTE | 2017-06-25 10:37 | Physical Therapy Tx Note ---
Physical Therapy Tx Note - Treatment Note Tolerated: Good Total Time Spent With Patient: 30 Physical Therapy Tx Note: Detail (The patient completed wheelchair mobility in hallway 150 feet with 3 rest periods. The patient complained of UE fatigue. Pressure relief while sitting in the chair was reviewed. The patient completed a wheelchair push-up. The patient completed LE exercises including: adductor squeezes, gluteal sets, with green band R LE hip abduction, hamstring curls and hip marching all x 15 reps.) Physical Therapy Problem List: Detail (1) Balance impairment 2) Poor safety awareness 3) Inability to assess gait 4) Inability to assess bed mobility 5) LE diminished sensation) Physical Therapy Goals: 1) Pt. will exhibit good understanding of body mechanics /safety awareness with all transfers. 2) Pt. will be independent with all transfers except shower transfers. 3) Pt. will be independent with bed mobility. 4) Pt. will verbalize and demonstrate repositioning techniques while seated to decrease pressure at the sacrum/lower back. Physical Therapy Plan: Pt. will be seen 1-2x per day for inpatient physical therapy until goals met.
[2017-06-25] MEDS: LISINOPRIL 10 MG TABLET PO SCH (10:56)
[2017-06-25] MEDS: FERROUS SULFATE 325 MG TAB PO SCH (10:56)
[2017-06-25] MEDS: GEMFIBROZIL 600 MG TABLET PO SCH ×2 (10:56→22:36)
[2017-06-25] MEDS: ENOXAPARIN 30 MG/0.3 ML SYR SQ SCH (10:57)
[2017-06-25] MEDS: ASCORBIC ACID 500 MG TAB PO SCH (10:58)
[2017-06-25] MEDS: CEFAZOLIN 2 Gram 2 GM/50 ML BAG IVPB SCH ×2 (10:58→18:05)
[2017-06-25] MEDS: COLLAGENASE 30 GM TUBE TOP SCH (10:58)
[2017-06-25] MEDS: HEPARIN SODIUM FLUSH 100 UNITS/ML SYR 5ML IVP PRN ×2 (11:55→18:55)
--- NOTE | 2017-06-25 14:08 | Occupational Therapy Tx Note ---
Occupational Therapy Tx Note - Treatment Note Tolerated: Good Total Time Spent With Patient: 30 (ADL, ther ex) Occupational Therapy Treatment Note: Detail (S: Pt up in wheelchair. O: Propelled self to sink and completed face washing and shaving with verbal cues to locate shaving items and to use thumb pad to dispense shaving cream. Pt able to demonstrate minimally improved coor with shaving activity. Ther ex using red theraputty for computer drafter, finger extension and pinch, pt required physical assist to correct thumb positioning with pinching. Pt completed todd wrist and finger stretches. A: Improved todd UE coordination, increased Ind with shaving) Occupational Therapy Problem List: Detail (1. Decreased Ind with showering 2. Decreased Ind with total body dressing 3. Decreased coordination needed for Ind ADLs 4. Decreased functional mobility needed for safe and Ind return home) Occupational Therapy Goals: 1. Pt will be safe and Ind with showering in sitting 2. Pt will be Ind with total body dressing 3. Pt will improve coordination to allow Ind with grooming/hygiene tasks 4. Pt will be safe and Ind with functional mobility needed for ADLs/IADLs. Prognosis: Good Occupational Therapy Plan: OT 1-4 times per week to address self cares, functional mobility, UE coordination needed for safe and Ind return home.
[2017-06-25] MEDS: ATORVASTATIN 20 MG TABLET PO SCH (22:35)
[2017-06-26] MEDS: 0.9 % SODIUM CHLORIDE 10ML SYR IVP SCH ×4 (01:54→11:29)
[2017-06-26] MEDS: CEFAZOLIN 2 Gram 2 GM/50 ML BAG IVPB SCH ×3 (01:54→18:14)
[2017-06-26] MEDS: HEPARIN SODIUM FLUSH 100 UNITS/ML SYR 5ML IVP PRN ×3 (02:31→19:09)
[2017-06-26] MEDS: METRONIDAZOLE 250 MG TABLET PO SCH ×3 (06:19→22:30)
[2017-06-26] MEDS: PANTOPRAZOLE SODIUM 40 MG TABLET PO SCH ×2 (06:20→16:38)
[2017-06-26] MEDS: LEVEMIR FLEXTOUCH 100 UNIT/ML INSULIN PEN SQ SCH ×2 (07:43→18:12)
[2017-06-26] MEDS: NOVOLOG FLEXPEN (INSULIN ASPART) 100 UNITS/ML SQ SCH ×4 (07:45→22:31)
[2017-06-26] MEDS: ASCORBIC ACID 500 MG TAB PO SCH (10:30)
[2017-06-26] MEDS: FERROUS SULFATE 325 MG TAB PO SCH (10:30)
[2017-06-26] MEDS: LISINOPRIL 10 MG TABLET PO SCH (10:31)
[2017-06-26] MEDS: COLLAGENASE 30 GM TUBE TOP SCH (10:32)
[2017-06-26] MEDS: ENOXAPARIN 30 MG/0.3 ML SYR SQ SCH (10:32)
[2017-06-26] MEDS: GEMFIBROZIL 600 MG TABLET PO SCH ×2 (10:33→22:31)
[2017-06-26] MEDS ORDERED: 0.9 % SODIUM CHLORIDE 10ML SYR IVP SCH (18:30)
[2017-06-26] MEDS: ATORVASTATIN 20 MG TABLET PO SCH (22:29)
[2017-06-27] MEDS: CEFAZOLIN 2 Gram 2 GM/50 ML BAG IVPB SCH ×3 (02:02→17:57)
[2017-06-27] MEDS: 0.9 % SODIUM CHLORIDE 10ML SYR IVP SCH ×5 (02:07→18:40)
[2017-06-27] MEDS: HEPARIN SODIUM FLUSH 100 UNITS/ML SYR 5ML IVP PRN ×3 (02:40→18:40)
[2017-06-27] MEDS: PANTOPRAZOLE SODIUM 40 MG TABLET PO SCH ×2 (06:27→16:27)
[2017-06-27] MEDS: METRONIDAZOLE 250 MG TABLET PO SCH ×3 (06:27→22:50)
[2017-06-27] MEDS: NOVOLOG FLEXPEN (INSULIN ASPART) 100 UNITS/ML SQ SCH ×4 (08:16→22:50)
[2017-06-27] MEDS: LEVEMIR FLEXTOUCH 100 UNIT/ML INSULIN PEN SQ SCH ×2 (08:16→18:01)
[2017-06-27] MEDS: LISINOPRIL 10 MG TABLET PO SCH (11:24)
[2017-06-27] MEDS: ASCORBIC ACID 500 MG TAB PO SCH (11:24)
[2017-06-27] MEDS: ENOXAPARIN 30 MG/0.3 ML SYR SQ SCH (11:24)
[2017-06-27] MEDS: FERROUS SULFATE 325 MG TAB PO SCH (11:25)
[2017-06-27] MEDS: COLLAGENASE 30 GM TUBE TOP SCH (11:26)
[2017-06-27] MEDS: GEMFIBROZIL 600 MG TABLET PO SCH ×2 (11:26→22:50)
[2017-06-27] MEDS: ATORVASTATIN 20 MG TABLET PO SCH (22:49)
[2017-06-28] MEDS: CEFAZOLIN 2 Gram 2 GM/50 ML BAG IVPB SCH ×3 (01:37→19:02)
[2017-06-28] MEDS: 0.9 % SODIUM CHLORIDE 10ML SYR IVP SCH ×4 (01:38→19:02)
[2017-06-28] MEDS: HEPARIN SODIUM FLUSH 100 UNITS/ML SYR 5ML IVP PRN ×3 (02:14→13:28)
[2017-06-28] MEDS: PANTOPRAZOLE SODIUM 40 MG TABLET PO SCH ×2 (06:10→15:34)
[2017-06-28] MEDS: METRONIDAZOLE 250 MG TABLET PO SCH ×3 (06:10→23:39)
[2017-06-28 06:27] LABS: HEMATOCRIT 21.5 % (42.0-52.0); MEAN CELL VOLUME 91.1 fl (81-97); MEAN CORPUSCULAR HEMOGLOBIN 27.1 pg (27-33); MEAN CORPUSCULAR HGB CONC 29.8 g/dl (32-36); MEAN PLATELET VOLUME 8.8 fl (7.4-10.4); PLATELET COUNT 403 K/uL (130-400); RED BLOOD COUNT 2.36 M/uL (4.40-5.70); RED CELL DISTRIBUTION WIDTH 15.6 % (11.5-14.5); WHITE BLOOD COUNT W/O DIFF 7.1 K/uL (4.2-12.2)
[2017-06-28 06:33] LABS: HEMOGLOBIN 6.4 gm/dl (14.0-18.0)
[2017-06-28 07:51] LABS: ABO GROUP B; RH TYPE POSITIVE
[2017-06-28 07:52] LABS: ANTIBODY SCREEN NEGATIVE (NEGATIVE)
[2017-06-28 07:53] LABS: IMMED. SPIN CROSSMATCH COMPATIBLE
[2017-06-28] MEDS: NOVOLOG FLEXPEN (INSULIN ASPART) 100 UNITS/ML SQ SCH ×4 (08:33→22:26)
[2017-06-28] MEDS: LEVEMIR FLEXTOUCH 100 UNIT/ML INSULIN PEN SQ SCH ×2 (08:34→17:25)
[2017-06-28] MEDS: LISINOPRIL 10 MG TABLET PO SCH (09:54)
[2017-06-28] MEDS: FERROUS SULFATE 325 MG TAB PO SCH ×2 (09:54→22:33)
[2017-06-28] MEDS: GEMFIBROZIL 600 MG TABLET PO SCH ×2 (09:55→22:34)
[2017-06-28] MEDS: ASCORBIC ACID 500 MG TAB PO SCH ×2 (09:55→22:33)
[2017-06-28] MEDS: ENOXAPARIN 30 MG/0.3 ML SYR SQ SCH (09:57)
[2017-06-28] MEDS: COLLAGENASE 30 GM TUBE TOP SCH (09:58)
[2017-06-28 13:48] LABS: HEMATOCRIT 25.6 % (42.0-52.0); HEMOGLOBIN 7.8 gm/dl (14.0-18.0)
--- NOTE | 2017-06-28 14:40 | Occupational Therapy Tx Note ---
Occupational Therapy Tx Note - Treatment Note Tolerated: Good Total Time Spent With Patient: 45 (ADL) Occupational Therapy Treatment Note: Detail (S: Pt up in chair, feeling better now than he was earlier. O: Pt wheeled self to shower and stand pivot transferred from wheelchair to shower bench with CG assist and verbal cues. Pt completed showering with min assist to manipulate shampoo and hand held shower. Pt able to dry self Indly. Donned gown with min assist. Pt transferred to wheelchair with verbal cues. Completed grooming and shaving with set up, he demonstrates improved hand coordination with shaving cream, razor and brush. Pt propelled back to room and left up in wheelchair. A: Min assist needed for showering due to decreased vision and decreased hand coordination although hand coordination is improved from last week with shaving activity) Occupational Therapy Problem List: Detail (1. Decreased Ind with showering 2. Decreased Ind with total body dressing 3. Decreased coordination needed for Ind ADLs 4. Decreased functional mobility needed for safe and Ind return home) Occupational Therapy Goals: 1. Pt will be safe and Ind with showering in sitting 2. Pt will be Ind with total body dressing 3. Pt will improve coordination to allow Ind with grooming/hygiene tasks 4. Pt will be safe and Ind with functional mobility needed for ADLs/IADLs. Prognosis: Good Occupational Therapy Plan: OT 1-4 times per week to address self cares, functional mobility, UE coordination needed for safe and Ind return home.
[2017-06-28] MEDS: ATORVASTATIN 20 MG TABLET PO SCH (22:33)
[2017-06-29] MEDS: 0.9 % SODIUM CHLORIDE 10ML SYR IVP SCH ×5 (07:27→23:00)
[2017-06-29] MEDS: CEFAZOLIN 2 Gram 2 GM/50 ML BAG IVPB SCH ×3 (07:31→22:13)
[2017-06-29] MEDS: PANTOPRAZOLE SODIUM 40 MG TABLET PO SCH ×2 (07:32→17:34)
[2017-06-29] MEDS: METRONIDAZOLE 250 MG TABLET PO SCH ×3 (07:32→22:18)
[2017-06-29] MEDS: NOVOLOG FLEXPEN (INSULIN ASPART) 100 UNITS/ML SQ SCH ×4 (08:30→22:15)
[2017-06-29] MEDS: LEVEMIR FLEXTOUCH 100 UNIT/ML INSULIN PEN SQ SCH ×2 (08:31→17:38)
[2017-06-29] MEDS: ASCORBIC ACID 500 MG TAB PO SCH ×2 (10:12→22:11)
[2017-06-29] MEDS: LISINOPRIL 10 MG TABLET PO SCH (10:12)
[2017-06-29] MEDS: GEMFIBROZIL 600 MG TABLET PO SCH ×2 (10:12→22:11)
[2017-06-29] MEDS: FERROUS SULFATE 325 MG TAB PO SCH ×2 (10:12→22:11)
--- NOTE | 2017-06-29 10:30 | Physical Therapy Tx Note ---
Physical Therapy Tx Note - Treatment Note Tolerated: Good Total Time Spent With Patient: 20 Physical Therapy Tx Note: Detail (The patient had no complaints. The patient was sitting in chair when PT arrived. The patient completed the following exercises: with red theraband: R LE :knee flexion, hip marching, hamstring curls, hip abduction,ankle pumps all x 20 reps., bilateral gluteal squeezes, hip adductor squeezes x 20 reps, and wheelchair pushups x 10 reps. The patient refused further activity due to fatigue.) Physical Therapy Problem List: Detail (1) Balance impairment 2) Poor safety awareness 3) Inability to assess gait 4) Inability to assess bed mobility 5) LE diminished sensation) Physical Therapy Goals: 1) Pt. will exhibit good understanding of body mechanics /safety awareness with all transfers. 2) Pt. will be independent with all transfers except shower transfers. 3) Pt. will be independent with bed mobility. 4) Pt. will verbalize and demonstrate repositioning techniques while seated to decrease pressure at the sacrum/lower back. Physical Therapy Plan: Pt. will be seen 1-2x per day for inpatient physical therapy until goals met.
[2017-06-29] MEDS: COLLAGENASE 30 GM TUBE TOP SCH (12:12)
[2017-06-29] MEDS: HEPARIN SODIUM FLUSH 100 UNITS/ML SYR 5ML IVP PRN (13:36)
[2017-06-29] MEDS: ATORVASTATIN 20 MG TABLET PO SCH (22:12)
[2017-06-30] MEDS: CEFAZOLIN 2 Gram 2 GM/50 ML BAG IVPB SCH ×3 (06:16→21:50)
[2017-06-30] MEDS: 0.9 % SODIUM CHLORIDE 10ML SYR IVP SCH ×4 (06:55→22:06)
[2017-06-30] MEDS: HEPARIN SODIUM FLUSH 100 UNITS/ML SYR 5ML IVP PRN ×2 (06:55→22:35)
[2017-06-30] MEDS: PANTOPRAZOLE SODIUM 40 MG TABLET PO SCH ×2 (07:00→17:37)
[2017-06-30] MEDS: METRONIDAZOLE 250 MG TABLET PO SCH ×3 (07:00→22:03)
[2017-06-30] MEDS: NOVOLOG FLEXPEN (INSULIN ASPART) 100 UNITS/ML SQ SCH ×4 (07:43→22:00)
[2017-06-30] MEDS: LEVEMIR FLEXTOUCH 100 UNIT/ML INSULIN PEN SQ SCH ×2 (08:10→17:38)
[2017-06-30] MEDS: FERROUS SULFATE 325 MG TAB PO SCH ×2 (09:27→21:54)
[2017-06-30] MEDS: COLLAGENASE 30 GM TUBE TOP SCH (09:28)
[2017-06-30] MEDS: GEMFIBROZIL 600 MG TABLET PO SCH ×2 (09:28→21:55)
[2017-06-30] MEDS: LISINOPRIL 10 MG TABLET PO SCH (09:29)
[2017-06-30] MEDS: ASCORBIC ACID 500 MG TAB PO SCH ×2 (09:29→21:54)
[2017-06-30] MEDS: NYSTATIN 15 GM TUBE TOP PRN (09:30)
--- NOTE | 2017-06-30 13:59 | Occupational Therapy Tx Note ---
Occupational Therapy Tx Note - Treatment Note Tolerated: Good Total Time Spent With Patient: 45 (ADL, ther ex) Occupational Therapy Treatment Note: Detail (S: Pt up in wheelchair. Feeling good today. O: Stand pivot transferred to EOB Indly. Donned undershirt and t- shirt Indly. Pt attempted donning shorts at EOB, with foot propped up on stool and lying propped up in bed but was unable to start shorts over foot Indly. Once shorts were started over right foot he was able to damon over left stump and anchor tack puller hips in supine and in standing. Transferred to wheelchair and pt propelled self to rehab gym with one rest break. Toño hand exercises completed with red theraputty for gross grasp, finger extension, pinch with manual assistance for thumb positioning; AROM to toño thumbs - palmar abduction, radial abduction, thumb adduction with red putty resistance, AROM to toño hands- finger ab/adduction, toño shoulder blade squeezes. PROM to toño hands and fingers. Pt propelled self to room with assist. A: Increased motion in hands and thumbs after exercise, minimal assist required for LE dressing) Occupational Therapy Problem List: Detail (1. Decreased Ind with showering 2. Decreased Ind with total body dressing 3. Decreased coordination needed for Ind ADLs 4. Decreased functional mobility needed for safe and Ind return home) Occupational Therapy Goals: 1. Pt will be safe and Ind with showering in sitting 2. Pt will be Ind with total body dressing 3. Pt will improve coordination to allow Ind with grooming/hygiene tasks 4. Pt will be safe and Ind with functional mobility needed for ADLs/IADLs. Prognosis: Good Occupational Therapy Plan: OT 1-4 times per week to address self cares, functional mobility, UE coordination needed for safe and Ind return home.
[2017-06-30] MEDS: ATORVASTATIN 20 MG TABLET PO SCH (21:54)
[2017-07-01] MEDS: 0.9 % SODIUM CHLORIDE 10ML SYR IVP SCH ×4 (02:48→17:30)
[2017-07-01] MEDS: CEFAZOLIN 2 Gram 2 GM/50 ML BAG IVPB SCH ×3 (06:36→22:42)
[2017-07-01] MEDS: PANTOPRAZOLE SODIUM 40 MG TABLET PO SCH ×2 (06:37→16:35)
[2017-07-01] MEDS: METRONIDAZOLE 250 MG TABLET PO SCH ×3 (06:37→22:45)
[2017-07-01] MEDS: HEPARIN SODIUM FLUSH 100 UNITS/ML SYR 5ML IVP PRN ×2 (07:14→23:49)
[2017-07-01] MEDS: LEVEMIR FLEXTOUCH 100 UNIT/ML INSULIN PEN SQ SCH ×2 (08:03→17:26)
[2017-07-01] MEDS: NOVOLOG FLEXPEN (INSULIN ASPART) 100 UNITS/ML SQ SCH ×4 (08:05→22:58)
[2017-07-01] MEDS: FERROUS SULFATE 325 MG TAB PO SCH ×2 (09:29→22:45)
[2017-07-01] MEDS: GEMFIBROZIL 600 MG TABLET PO SCH ×2 (09:29→22:50)
[2017-07-01] MEDS: LISINOPRIL 10 MG TABLET PO SCH (09:30)
[2017-07-01] MEDS: ASCORBIC ACID 500 MG TAB PO SCH ×2 (09:30→22:50)
[2017-07-01] MEDS: COLLAGENASE 30 GM TUBE TOP SCH (09:30)
[2017-07-01] MEDS: NYSTATIN 15 GM TUBE TOP PRN (09:31)
--- NOTE | 2017-07-01 13:04 | Physical Therapy Tx Note ---
Physical Therapy Tx Note - Treatment Note Tolerated: Good Total Time Spent With Patient: 60 Physical Therapy Tx Note: Detail (Patient states doing good today. Patient performed wheelchair mobility x600 feet with several rest breaks due to fatigue. Patient performed the following exercises x15-20 reps each: seated heel raises, seated toe raises, seated hip flexion, seated hip adduction, seated hip abduction with green theraband right, active seated left hip abduction, LAQ, hamstring curls with green theraband, standing hip abduction, standing hip extension, and wheelchair pushups. Patient transferred sit to and from stand x5 with standing 10-15 seconds each CGA x1. Patient performed seated right hamstring stretch 2 x30 seconds. Patient tolerated treatment well. Patient displays decreased strength and endurance with standing hip abduction, standing hip extension, sit to and from stand, seated hip flexion, seated hip abduction with theraband, LAQ, hamstring curls with theraband, and wheelchair pushups. Patient displays decreased flexibility with seated hamstring stretch. Patient was left seated in wheelchair with call light within reach.) Physical Therapy Problem List: Detail (1) Balance impairment 2) Poor safety awareness 3) Inability to assess gait 4) Inability to assess bed mobility 5) LE diminished sensation) Physical Therapy Goals: 1) Pt. will exhibit good understanding of body mechanics /safety awareness with all transfers. 2) Pt. will be independent with all transfers except shower transfers. 3) Pt. will be independent with bed mobility. 4) Pt. will verbalize and demonstrate repositioning techniques while seated to decrease pressure at the sacrum/lower back. Prognosis: Good Physical Therapy Plan: Pt. will be seen 1-2x per day for inpatient physical therapy until goals met.
[2017-07-01] MEDS: ATORVASTATIN 20 MG TABLET PO SCH (22:47)
[2017-07-02] MEDS: CEFAZOLIN 2 Gram 2 GM/50 ML BAG IVPB SCH ×3 (06:14→21:53)
[2017-07-02] MEDS: 0.9 % SODIUM CHLORIDE 10ML SYR IVP SCH ×5 (06:15→22:20)
[2017-07-02] MEDS: METRONIDAZOLE 250 MG TABLET PO SCH ×3 (06:18→22:57)
[2017-07-02] MEDS: PANTOPRAZOLE SODIUM 40 MG TABLET PO SCH ×2 (06:18→17:22)
[2017-07-02] MEDS: HEPARIN SODIUM FLUSH 100 UNITS/ML SYR 5ML IVP PRN ×2 (07:00→14:35)
[2017-07-02] MEDS: NOVOLOG FLEXPEN (INSULIN ASPART) 100 UNITS/ML SQ SCH ×4 (08:01→21:50)
[2017-07-02] MEDS: LEVEMIR FLEXTOUCH 100 UNIT/ML INSULIN PEN SQ SCH ×2 (08:06→17:20)
[2017-07-02] MEDS: LISINOPRIL 10 MG TABLET PO SCH (10:41)
[2017-07-02] MEDS: FERROUS SULFATE 325 MG TAB PO SCH ×2 (10:41→21:52)
[2017-07-02] MEDS: ASCORBIC ACID 500 MG TAB PO SCH ×2 (10:42→21:52)
[2017-07-02] MEDS: GEMFIBROZIL 600 MG TABLET PO SCH ×2 (10:42→21:52)
--- NOTE | 2017-07-02 10:56 | Physical Therapy Tx Note ---
Physical Therapy Tx Note - Treatment Note Tolerated: Good Total Time Spent With Patient: 25 Physical Therapy Tx Note: Detail (The patient was sitting up in chair when PT arrived. The patient completed LE strengthening exercises including : seated hamstring stretch 3 reps x 15 seconds, with green theraband R LE hip abduction, hip marching, hamstring curls all x 20 reps, hip adductor squeezes x 20 reps. The patient propelled his wheelchair 150 feet with one rest period.) Physical Therapy Problem List: Detail (1) Balance impairment 2) Poor safety awareness 3) Inability to assess gait 4) Inability to assess bed mobility 5) LE diminished sensation) Physical Therapy Goals: 1) Pt. will exhibit good understanding of body mechanics /safety awareness with all transfers. 2) Pt. will be independent with all transfers except shower transfers. 3) Pt. will be independent with bed mobility. 4) Pt. will verbalize and demonstrate repositioning techniques while seated to decrease pressure at the sacrum/lower back. Physical Therapy Plan: Pt. will be seen 1-2x per day for inpatient physical therapy until goals met.
[2017-07-02] MEDS: COLLAGENASE 30 GM TUBE TOP SCH (11:05)
--- NOTE | 2017-07-02 14:06 | Occupational Therapy Tx Note ---
Occupational Therapy Tx Note - Treatment Note Tolerated: Good Total Time Spent With Patient: 50 Occupational Therapy Treatment Note: Detail (Pt up in w/c upon arrival. Self- propelled w/c from pt's room to rehab gym ind. Completed resistive clothespins seated at table top level todd (L hand = Y,R,G and R hand = Y). Hand helper 2G and 1R 35x each hand. Digiflex red 10x each hand for isolation of finger flex. Instructed on abd/add digit ex w/ red putty and demo'd understanding. PPS to B digits and wrist.) Occupational Therapy Problem List: Detail (1. Decreased Ind with showering 2. Decreased Ind with total body dressing 3. Decreased coordination needed for Ind ADLs 4. Decreased functional mobility needed for safe and Ind return home) Occupational Therapy Goals: 1. Pt will be safe and Ind with showering in sitting 2. Pt will be Ind with total body dressing 3. Pt will improve coordination to allow Ind with grooming/hygiene tasks 4. Pt will be safe and Ind with functional mobility needed for ADLs/IADLs. Occupational Therapy Plan: OT 1-4 times per week to address self cares, functional mobility, UE coordination needed for safe and Ind return home.
[2017-07-02] MEDS: ATORVASTATIN 20 MG TABLET PO SCH (21:53)
[2017-07-03] MEDS: PANTOPRAZOLE SODIUM 40 MG TABLET PO SCH ×2 (06:04→15:58)
[2017-07-03] MEDS: METRONIDAZOLE 250 MG TABLET PO SCH ×3 (06:04→22:40)
[2017-07-03] MEDS: CEFAZOLIN 2 Gram 2 GM/50 ML BAG IVPB SCH ×3 (06:05→21:28)
[2017-07-03] MEDS: LEVEMIR FLEXTOUCH 100 UNIT/ML INSULIN PEN SQ SCH ×2 (08:18→17:43)
[2017-07-03] MEDS: NOVOLOG FLEXPEN (INSULIN ASPART) 100 UNITS/ML SQ SCH ×4 (08:20→21:26)
[2017-07-03] MEDS: FERROUS SULFATE 325 MG TAB PO SCH ×2 (09:03→21:27)
[2017-07-03] MEDS: GEMFIBROZIL 600 MG TABLET PO SCH ×2 (09:03→21:29)
[2017-07-03] MEDS: ASCORBIC ACID 500 MG TAB PO SCH ×2 (09:04→21:28)
[2017-07-03] MEDS: COLLAGENASE 30 GM TUBE TOP SCH (09:04)
[2017-07-03] MEDS: NYSTATIN 15 GM TUBE TOP PRN (09:04)
[2017-07-03] MEDS: LISINOPRIL 10 MG TABLET PO SCH (09:05)
[2017-07-03] MEDS: 0.9 % SODIUM CHLORIDE 10ML SYR IVP SCH ×3 (14:50→22:40)
[2017-07-03] MEDS: ATORVASTATIN 20 MG TABLET PO SCH (21:28)
[2017-07-04] MEDS: 0.9 % SODIUM CHLORIDE 10ML SYR IVP SCH ×3 (03:33→17:41)
[2017-07-04] MEDS: PANTOPRAZOLE SODIUM 40 MG TABLET PO SCH ×2 (06:16→15:53)
[2017-07-04] MEDS: METRONIDAZOLE 250 MG TABLET PO SCH ×3 (06:16→22:09)
[2017-07-04] MEDS: CEFAZOLIN 2 Gram 2 GM/50 ML BAG IVPB SCH ×3 (06:17→21:20)
[2017-07-04] MEDS: NOVOLOG FLEXPEN (INSULIN ASPART) 100 UNITS/ML SQ SCH ×4 (07:13→21:20)
[2017-07-04] MEDS: LEVEMIR FLEXTOUCH 100 UNIT/ML INSULIN PEN SQ SCH ×2 (08:20→17:37)
[2017-07-04] MEDS: FERROUS SULFATE 325 MG TAB PO SCH ×2 (09:05→21:19)
[2017-07-04] MEDS: GEMFIBROZIL 600 MG TABLET PO SCH ×2 (09:05→21:19)
[2017-07-04] MEDS: ASCORBIC ACID 500 MG TAB PO SCH ×2 (09:06→21:19)
[2017-07-04] MEDS: COLLAGENASE 30 GM TUBE TOP SCH (09:06)
[2017-07-04] MEDS: LISINOPRIL 10 MG TABLET PO SCH (09:07)
[2017-07-04] MEDS: ATORVASTATIN 20 MG TABLET PO SCH (21:19)
[2017-07-05] MEDS: 0.9 % SODIUM CHLORIDE 10ML SYR IVP SCH ×4 (02:21→22:00)
[2017-07-05] MEDS: CEFAZOLIN 2 Gram 2 GM/50 ML BAG IVPB SCH ×3 (06:10→21:08)
[2017-07-05] MEDS: METRONIDAZOLE 250 MG TABLET PO SCH ×3 (06:11→22:00)
[2017-07-05] MEDS: PANTOPRAZOLE SODIUM 40 MG TABLET PO SCH ×2 (06:11→17:22)
[2017-07-05] MEDS: NOVOLOG FLEXPEN (INSULIN ASPART) 100 UNITS/ML SQ SCH ×4 (07:49→23:18)
[2017-07-05] MEDS: LEVEMIR FLEXTOUCH 100 UNIT/ML INSULIN PEN SQ SCH ×2 (08:02→17:19)
[2017-07-05] MEDS: LISINOPRIL 10 MG TABLET PO SCH (09:59)
[2017-07-05] MEDS: FERROUS SULFATE 325 MG TAB PO SCH ×2 (09:59→21:06)
[2017-07-05] MEDS: GEMFIBROZIL 600 MG TABLET PO SCH ×2 (09:59→21:06)
[2017-07-05] MEDS: ASCORBIC ACID 500 MG TAB PO SCH ×2 (09:59→21:05)
--- NOTE | 2017-07-05 10:14 | Occupational Therapy Tx Note ---
Occupational Therapy Tx Note - Treatment Note Tolerated: Good Total Time Spent With Patient: 45 (ther ex) Occupational Therapy Treatment Note: Detail (S: Pt up in wheelchair. O: Propelled self to rehab gym Indly. Pt completed todd hand exercises as follows: Red putty for thumb and finger adduction x 5 reps with assist, finger/thumb resisted abduction with green rubberband, clothespins with focus on tip to tip pinch using yellow and red, todd thumb IP flexion/extension blocking exercises x 10 reps, hand helper x 15 reps with 45# todd, sponge squeezes x 1 bucket each for grasp/release. Pt taken back to room via wheelchair. A: Pt continues with impaired thumb opposition right worse than left, unable to complete tip to tip pinch.) Occupational Therapy Problem List: Detail (1. Decreased Ind with showering 2. Decreased Ind with total body dressing 3. Decreased coordination needed for Ind ADLs 4. Decreased functional mobility needed for safe and Ind return home) Occupational Therapy Goals: 1. Pt will be safe and Ind with showering in sitting 2. Pt will be Ind with total body dressing 3. Pt will improve coordination to allow Ind with grooming/hygiene tasks 4. Pt will be safe and Ind with functional mobility needed for ADLs/IADLs. Prognosis: Good Occupational Therapy Plan: OT 1-4 times per week to address self cares, functional mobility, UE coordination needed for safe and Ind return home.
[2017-07-05] MEDS: HEPARIN SODIUM FLUSH 100 UNITS/ML SYR 5ML IVP PRN (14:18)
[2017-07-05] MEDS: COLLAGENASE 30 GM TUBE TOP SCH (14:54)
[2017-07-05] MEDS: ATORVASTATIN 20 MG TABLET PO SCH (21:06)
[2017-07-06] MEDS: METRONIDAZOLE 250 MG TABLET PO SCH ×3 (06:13→22:35)
[2017-07-06] MEDS: PANTOPRAZOLE SODIUM 40 MG TABLET PO SCH ×3 (06:14→16:00)
[2017-07-06] MEDS: CEFAZOLIN 2 Gram 2 GM/50 ML BAG IVPB SCH ×3 (06:14→22:36)
[2017-07-06] MEDS: 0.9 % SODIUM CHLORIDE 10ML SYR IVP SCH ×3 (06:42→22:37)
[2017-07-06] MEDS: NOVOLOG FLEXPEN (INSULIN ASPART) 100 UNITS/ML SQ SCH ×4 (08:19→22:36)
[2017-07-06] MEDS: LEVEMIR FLEXTOUCH 100 UNIT/ML INSULIN PEN SQ SCH ×2 (08:42→17:46)
[2017-07-06 08:59] LABS: BASO % 0.2 % (0-6); EOS % 6.7 % (0-6); GRAN % 74.2 % (47-80); HEMATOCRIT 29.1 % (42.0-52.0); HEMOGLOBIN 8.7 gm/dl (14.0-18.0); LYMPH % 11.8 % (16-45); MEAN CELL VOLUME 91.8 fl (81-97); MEAN CORPUSCULAR HEMOGLOBIN 27.4 pg (27-33); MEAN CORPUSCULAR HGB CONC 29.9 g/dl (32-36); MONO % 7.1 % (0-9); PLATELET COUNT 397 K/uL (130-400); RED BLOOD COUNT 3.17 M/uL (4.40-5.70); RED CELL DISTRIBUTION WIDTH 15.9 % (11.5-14.5); WHITE BLOOD COUNT W/O DIFF 8.2 K/uL (4.2-12.2)
[2017-07-06 09:03] LABS: ANION GAP 11.7 (7-16); CARBON DIOXIDE 17.3 mmol/L (22-30); CREATININE 1.8 mg/dL (0.66-1.25)
[2017-07-06] MEDS: GEMFIBROZIL 600 MG TABLET PO SCH ×2 (11:29→22:35)
[2017-07-06] MEDS: ASCORBIC ACID 500 MG TAB PO SCH ×2 (11:29→22:36)
[2017-07-06] MEDS: LISINOPRIL 10 MG TABLET PO SCH (11:30)
[2017-07-06] MEDS: FERROUS SULFATE 325 MG TAB PO SCH ×2 (11:30→22:35)
[2017-07-06] MEDS: COLLAGENASE 30 GM TUBE TOP SCH (11:31)
[2017-07-06] MEDS: ATORVASTATIN 20 MG TABLET PO SCH (22:35)
[2017-07-06] MEDS: HEPARIN SODIUM FLUSH 100 UNITS/ML SYR 5ML IVP PRN (23:21)
[2017-07-07] MEDS: 0.9 % SODIUM CHLORIDE 10ML SYR IVP SCH ×4 (06:24→21:54)
[2017-07-07] MEDS: CEFAZOLIN 2 Gram 2 GM/50 ML BAG IVPB SCH ×3 (06:24→21:09)
[2017-07-07] MEDS: PANTOPRAZOLE SODIUM 40 MG TABLET PO SCH ×2 (06:24→16:48)
[2017-07-07] MEDS: METRONIDAZOLE 250 MG TABLET PO SCH ×3 (06:24→22:08)
[2017-07-07] MEDS: HEPARIN SODIUM FLUSH 100 UNITS/ML SYR 5ML IVP PRN (07:00)
[2017-07-07] MEDS: NOVOLOG FLEXPEN (INSULIN ASPART) 100 UNITS/ML SQ SCH ×4 (07:16→21:53)
[2017-07-07] MEDS: LEVEMIR FLEXTOUCH 100 UNIT/ML INSULIN PEN SQ SCH ×2 (08:02→17:41)
[2017-07-07] MEDS: ASCORBIC ACID 500 MG TAB PO SCH ×2 (09:09→21:09)
[2017-07-07] MEDS: GEMFIBROZIL 600 MG TABLET PO SCH ×2 (09:09→21:09)
[2017-07-07] MEDS: FERROUS SULFATE 325 MG TAB PO SCH ×2 (09:09→21:09)
[2017-07-07] MEDS: COLLAGENASE 30 GM TUBE TOP SCH (09:09)
[2017-07-07] MEDS: LISINOPRIL 10 MG TABLET PO SCH (09:10)
[2017-07-07] MEDS: ATORVASTATIN 20 MG TABLET PO SCH (21:09)
[2017-07-08] MEDS: CEFAZOLIN 2 Gram 2 GM/50 ML BAG IVPB SCH ×5 (06:20→22:13)
[2017-07-08] MEDS: METRONIDAZOLE 250 MG TABLET PO SCH ×3 (06:22→22:16)
[2017-07-08] MEDS: 0.9 % SODIUM CHLORIDE 10ML SYR IVP SCH ×4 (06:22→22:17)
[2017-07-08] MEDS: PANTOPRAZOLE SODIUM 40 MG TABLET PO SCH ×2 (06:22→16:31)
[2017-07-08] MEDS: LEVEMIR FLEXTOUCH 100 UNIT/ML INSULIN PEN SQ SCH ×2 (08:03→17:40)
[2017-07-08] MEDS: NOVOLOG FLEXPEN (INSULIN ASPART) 100 UNITS/ML SQ SCH ×4 (08:03→22:17)
[2017-07-08] MEDS: FERROUS SULFATE 325 MG TAB PO SCH ×2 (09:08→22:15)
[2017-07-08] MEDS: COLLAGENASE 30 GM TUBE TOP SCH (09:08)
[2017-07-08] MEDS: GEMFIBROZIL 600 MG TABLET PO SCH ×2 (09:08→22:14)
[2017-07-08] MEDS: ASCORBIC ACID 500 MG TAB PO SCH ×2 (09:09→22:14)
[2017-07-08] MEDS: LISINOPRIL 10 MG TABLET PO SCH (09:09)
--- NOTE | 2017-07-08 14:21 | Physical Therapy Tx Note ---
Physical Therapy Tx Note - Treatment Note Tolerated: Good Total Time Spent With Patient: 40 Physical Therapy Tx Note: Detail (Patient states doing good today. Patient performed wheelchair mobility x 342 feet. Patient performed the following exercises x20 reps each: seated hip flexion, seated hip abduction with green theraband, seated hamstring curls with green theraband, seated hip adduction with green theraband, seated heel raises, seated toe raises, glut squeezes, abdominal isometrics, rowing with green theraband, shoulder extension with green theraband, bicep curls with green theraband, standing hip abduction, standing hip extension, and squats x10. Patient transferred sit to and from stand x5 reps CGA x1 with 2 x30 seconds standing hold.) Physical Therapy Problem List: Detail (1) Balance impairment 2) Poor safety awareness 3) Inability to assess gait 4) Inability to assess bed mobility 5) LE diminished sensation) Physical Therapy Goals: 1) Pt. will exhibit good understanding of body mechanics /safety awareness with all transfers. 2) Pt. will be independent with all transfers except shower transfers. 3) Pt. will be independent with bed mobility. 4) Pt. will verbalize and demonstrate repositioning techniques while seated to decrease pressure at the sacrum/lower back. Prognosis: Good Physical Therapy Plan: Pt. will be seen 1-2x per day for inpatient physical therapy until goals met.
[2017-07-08] MEDS: ATORVASTATIN 20 MG TABLET PO SCH (22:15)
[2017-07-08] MEDS: HEPARIN SODIUM FLUSH 100 UNITS/ML SYR 5ML IVP PRN (22:49)
[2017-07-09] MEDS: METRONIDAZOLE 250 MG TABLET PO SCH ×3 (06:16→22:37)
[2017-07-09] MEDS: CEFAZOLIN 2 Gram 2 GM/50 ML BAG IVPB SCH ×3 (06:16→22:31)
[2017-07-09] MEDS: 0.9 % SODIUM CHLORIDE 10ML SYR IVP SCH ×4 (06:16→22:30)
[2017-07-09] MEDS: PANTOPRAZOLE SODIUM 40 MG TABLET PO SCH ×2 (06:16→17:34)
[2017-07-09] MEDS: HEPARIN SODIUM FLUSH 100 UNITS/ML SYR 5ML IVP PRN ×2 (06:53→16:00)
[2017-07-09] MEDS: NOVOLOG FLEXPEN (INSULIN ASPART) 100 UNITS/ML SQ SCH ×4 (07:46→22:26)
[2017-07-09] MEDS: LEVEMIR FLEXTOUCH 100 UNIT/ML INSULIN PEN SQ SCH ×2 (08:32→17:32)
[2017-07-09] MEDS: FERROUS SULFATE 325 MG TAB PO SCH ×2 (10:15→22:30)
[2017-07-09] MEDS: ASCORBIC ACID 500 MG TAB PO SCH ×2 (10:17→22:30)
[2017-07-09] MEDS: LISINOPRIL 10 MG TABLET PO SCH (10:17)
[2017-07-09] MEDS: GEMFIBROZIL 600 MG TABLET PO SCH ×2 (10:18→22:30)
[2017-07-09] MEDS: COLLAGENASE 30 GM TUBE TOP SCH (10:20)
[2017-07-09] MEDS: ATORVASTATIN 20 MG TABLET PO SCH (22:29)
[2017-07-10] MEDS: PANTOPRAZOLE SODIUM 40 MG TABLET PO SCH ×2 (06:18→16:26)
[2017-07-10] MEDS: METRONIDAZOLE 250 MG TABLET PO SCH ×3 (06:18→22:49)
[2017-07-10] MEDS: CEFAZOLIN 2 Gram 2 GM/50 ML BAG IVPB SCH ×3 (06:18→21:33)
[2017-07-10] MEDS: 0.9 % SODIUM CHLORIDE 10ML SYR IVP SCH ×3 (06:23→21:32)
[2017-07-10] MEDS: LEVEMIR FLEXTOUCH 100 UNIT/ML INSULIN PEN SQ SCH ×2 (08:15→17:30)
[2017-07-10] MEDS: NOVOLOG FLEXPEN (INSULIN ASPART) 100 UNITS/ML SQ SCH ×4 (08:35→22:41)
[2017-07-10] MEDS: ASCORBIC ACID 500 MG TAB PO SCH ×2 (09:53→21:32)
[2017-07-10] MEDS: FERROUS SULFATE 325 MG TAB PO SCH ×2 (09:53→21:33)
[2017-07-10] MEDS: LISINOPRIL 10 MG TABLET PO SCH (09:53)
[2017-07-10] MEDS: COLLAGENASE 30 GM TUBE TOP SCH (09:54)
[2017-07-10] MEDS: GEMFIBROZIL 600 MG TABLET PO SCH ×2 (09:54→21:33)
[2017-07-10] MEDS: HEPARIN SODIUM FLUSH 100 UNITS/ML SYR 5ML IVP PRN (14:54)
[2017-07-10] MEDS: ATORVASTATIN 20 MG TABLET PO SCH (21:32)
[2017-07-11] MEDS: METRONIDAZOLE 250 MG TABLET PO SCH ×3 (06:03→22:06)
[2017-07-11] MEDS: 0.9 % SODIUM CHLORIDE 10ML SYR IVP SCH ×4 (06:03→22:10)
[2017-07-11] MEDS: CEFAZOLIN 2 Gram 2 GM/50 ML BAG IVPB SCH ×3 (06:04→22:06)
[2017-07-11] MEDS: PANTOPRAZOLE SODIUM 40 MG TABLET PO SCH ×2 (06:04→15:57)
[2017-07-11] MEDS: LEVEMIR FLEXTOUCH 100 UNIT/ML INSULIN PEN SQ SCH ×2 (08:29→17:16)
[2017-07-11] MEDS: NOVOLOG FLEXPEN (INSULIN ASPART) 100 UNITS/ML SQ SCH ×4 (08:55→22:12)
[2017-07-11] MEDS: LISINOPRIL 10 MG TABLET PO SCH (10:00)
[2017-07-11] MEDS: FERROUS SULFATE 325 MG TAB PO SCH ×2 (10:00→22:06)
[2017-07-11] MEDS: ASCORBIC ACID 500 MG TAB PO SCH ×2 (10:00→22:06)
[2017-07-11] MEDS: GEMFIBROZIL 600 MG TABLET PO SCH ×2 (10:00→22:07)
[2017-07-11] MEDS: COLLAGENASE 30 GM TUBE TOP SCH (10:02)
[2017-07-11] MEDS: HEPARIN SODIUM FLUSH 100 UNITS/ML SYR 5ML IVP PRN (15:29)
[2017-07-11] MEDS: ATORVASTATIN 20 MG TABLET PO SCH (22:05)
[2017-07-12] MEDS: CEFAZOLIN 2 Gram 2 GM/50 ML BAG IVPB SCH ×3 (05:56→22:40)
[2017-07-12] MEDS: PANTOPRAZOLE SODIUM 40 MG TABLET PO SCH ×2 (06:01→16:34)
[2017-07-12] MEDS: METRONIDAZOLE 250 MG TABLET PO SCH ×3 (06:02→22:40)
[2017-07-12] MEDS: 0.9 % SODIUM CHLORIDE 10ML SYR IVP SCH ×4 (06:02→22:41)
[2017-07-12] MEDS: LEVEMIR FLEXTOUCH 100 UNIT/ML INSULIN PEN SQ SCH ×2 (08:21→17:18)
[2017-07-12] MEDS: NOVOLOG FLEXPEN (INSULIN ASPART) 100 UNITS/ML SQ SCH ×4 (08:28→22:35)
[2017-07-12] MEDS: GEMFIBROZIL 600 MG TABLET PO SCH ×2 (10:13→22:41)
[2017-07-12] MEDS: FERROUS SULFATE 325 MG TAB PO SCH ×2 (10:13→22:40)
[2017-07-12] MEDS: ASCORBIC ACID 500 MG TAB PO SCH ×2 (10:13→22:40)
[2017-07-12] MEDS: COLLAGENASE 30 GM TUBE TOP SCH (10:16)
[2017-07-12] MEDS: LISINOPRIL 10 MG TABLET PO SCH (10:16)
--- NOTE | 2017-07-12 10:26 | Physical Therapy Tx Note ---
Physical Therapy Tx Note - Treatment Note Tolerated: Good Total Time Spent With Patient: 25 Physical Therapy Tx Note: Detail (The patient was up in a chair when PT arrived. The patient propelled his wheelchair independently 200 feet x 1 with one rest period. The patient's R LE strength was retested: hip flexors and hamstrings were 4+/5, all other muscle groups were 5/5. The patient continues to have R hamstring tightness. The patient completed a LE strengthening program all x 20 reps including: with green band hip marching, hip abduction, knee flexion and extension and hip adductor squeezes and hamstring stretches x 2 reps x 30 seconds.) Physical Therapy Problem List: Detail (1) Balance impairment 2) Poor safety awareness 3) Inability to assess gait 4) Inability to assess bed mobility 5) LE diminished sensation) Physical Therapy Goals: 1) Pt. will exhibit good understanding of body mechanics /safety awareness with all transfers. 2) Pt. will be independent with all transfers except shower transfers. 3) Pt. will be independent with bed mobility. 4) Pt. will verbalize and demonstrate repositioning techniques while seated to decrease pressure at the sacrum/lower back. Physical Therapy Plan: Pt. will be seen 1-2x per day for inpatient physical therapy until goals met.
[2017-07-12] MEDS: HEPARIN SODIUM FLUSH 100 UNITS/ML SYR 5ML IVP PRN (14:38)
[2017-07-12] MEDS: ATORVASTATIN 20 MG TABLET PO SCH (22:40)
[2017-07-13] MEDS: CEFAZOLIN 2 Gram 2 GM/50 ML BAG IVPB SCH ×3 (06:03→22:28)
[2017-07-13] MEDS: METRONIDAZOLE 250 MG TABLET PO SCH ×3 (06:04→22:28)
[2017-07-13] MEDS: PANTOPRAZOLE SODIUM 40 MG TABLET PO SCH ×2 (06:04→16:42)
[2017-07-13] MEDS: 0.9 % SODIUM CHLORIDE 10ML SYR IVP SCH ×3 (06:07→22:30)
[2017-07-13] MEDS: NOVOLOG FLEXPEN (INSULIN ASPART) 100 UNITS/ML SQ SCH ×4 (08:28→22:00)
[2017-07-13] MEDS: LEVEMIR FLEXTOUCH 100 UNIT/ML INSULIN PEN SQ SCH ×2 (08:29→17:53)
[2017-07-13] MEDS: FERROUS SULFATE 325 MG TAB PO SCH ×2 (09:12→22:29)
[2017-07-13] MEDS: GEMFIBROZIL 600 MG TABLET PO SCH ×2 (09:13→22:30)
[2017-07-13] MEDS: ASCORBIC ACID 500 MG TAB PO SCH ×2 (09:13→22:28)
[2017-07-13] MEDS: COLLAGENASE 30 GM TUBE TOP SCH (09:13)
[2017-07-13] MEDS: LISINOPRIL 10 MG TABLET PO SCH (09:14)
--- NOTE | 2017-07-13 11:55 | Occupational Therapy Tx Note ---
Occupational Therapy Tx Note - Treatment Note Tolerated: Good Total Time Spent With Patient: 40 (ther ex) Occupational Therapy Treatment Note: Detail (S: Pt in wheelchair. O: Propelled self from room to rehab gym. Pt completed todd UE AROM, strengthening and coor activities including green theraputty, thumb IP blocking, thumb opposition with focus on IP extension, repetitive pinch with focus on thumb IP extension, sponge squeezes for grasp/release, individual finger/thumb extension with hands on table. Reaching forward activity to improve LE dressing ability x 10 reps. A: Improved coordination reported for shaving and brushing teeth with increased thumb motion/motor control, thenar wasting continues) Occupational Therapy Problem List: Detail (1. Decreased Ind with showering 2. Decreased Ind with total body dressing 3. Decreased coordination needed for Ind ADLs 4. Decreased functional mobility needed for safe and Ind return home) Occupational Therapy Goals: 1. Pt will be safe and Ind with showering in sitting 2. Pt will be Ind with total body dressing 3. Pt will improve coordination to allow Ind with grooming/hygiene tasks 4. Pt will be safe and Ind with functional mobility needed for ADLs/IADLs. Prognosis: Good Occupational Therapy Plan: OT 1-4 times per week to address self cares, functional mobility, UE coordination needed for safe and Ind return home.
[2017-07-13] MEDS: ATORVASTATIN 20 MG TABLET PO SCH (22:29)
[2017-07-14] MEDS: CEFAZOLIN 2 Gram 2 GM/50 ML BAG IVPB SCH ×3 (06:03→21:57)
[2017-07-14] MEDS: PANTOPRAZOLE SODIUM 40 MG TABLET PO SCH ×2 (06:03→16:01)
[2017-07-14] MEDS: 0.9 % SODIUM CHLORIDE 10ML SYR IVP SCH ×3 (06:10→22:47)
[2017-07-14] MEDS: NOVOLOG FLEXPEN (INSULIN ASPART) 100 UNITS/ML SQ SCH ×4 (07:56→22:03)
[2017-07-14] MEDS: METRONIDAZOLE 250 MG TABLET PO SCH ×3 (07:57→22:03)
[2017-07-14] MEDS: LEVEMIR FLEXTOUCH 100 UNIT/ML INSULIN PEN SQ SCH ×2 (08:06→17:56)
[2017-07-14] MEDS: GEMFIBROZIL 600 MG TABLET PO SCH ×2 (09:13→21:57)
[2017-07-14] MEDS: FERROUS SULFATE 325 MG TAB PO SCH ×2 (09:13→21:57)
[2017-07-14] MEDS: COLLAGENASE 30 GM TUBE TOP SCH (09:14)
[2017-07-14] MEDS: LISINOPRIL 10 MG TABLET PO SCH (09:14)
[2017-07-14] MEDS: ASCORBIC ACID 500 MG TAB PO SCH ×2 (09:14→21:57)
[2017-07-14] MEDS: ATORVASTATIN 20 MG TABLET PO SCH (21:56)
[2017-07-14] MEDS: HEPARIN SODIUM FLUSH 100 UNITS/ML SYR 5ML IVP PRN (22:48)
[2017-07-15] MEDS: METRONIDAZOLE 250 MG TABLET PO SCH ×3 (06:14→22:03)
[2017-07-15] MEDS: CEFAZOLIN 2 Gram 2 GM/50 ML BAG IVPB SCH ×3 (06:14→21:59)
[2017-07-15] MEDS: PANTOPRAZOLE SODIUM 40 MG TABLET PO SCH ×2 (06:14→17:09)
[2017-07-15] MEDS: 0.9 % SODIUM CHLORIDE 10ML SYR IVP SCH ×3 (06:14→22:49)
[2017-07-15] MEDS: NOVOLOG FLEXPEN (INSULIN ASPART) 100 UNITS/ML SQ SCH ×4 (08:35→22:12)
[2017-07-15] MEDS: LEVEMIR FLEXTOUCH 100 UNIT/ML INSULIN PEN SQ SCH ×2 (08:40→17:14)
[2017-07-15] MEDS: COLLAGENASE 30 GM TUBE TOP SCH (10:52)
[2017-07-15] MEDS: FERROUS SULFATE 325 MG TAB PO SCH ×2 (10:57→22:01)
[2017-07-15] MEDS: GEMFIBROZIL 600 MG TABLET PO SCH ×2 (10:57→22:02)
[2017-07-15] MEDS: ASCORBIC ACID 500 MG TAB PO SCH ×2 (10:57→22:02)
[2017-07-15] MEDS: LISINOPRIL 10 MG TABLET PO SCH (10:58)
[2017-07-15] MEDS: ATORVASTATIN 20 MG TABLET PO SCH (22:01)
[2017-07-16] MEDS: METRONIDAZOLE 250 MG TABLET PO SCH ×3 (06:09→21:33)
[2017-07-16] MEDS: 0.9 % SODIUM CHLORIDE 10ML SYR IVP SCH ×4 (06:10→22:17)
[2017-07-16] MEDS: CEFAZOLIN 2 Gram 2 GM/50 ML BAG IVPB SCH ×3 (06:10→21:36)
[2017-07-16] MEDS: PANTOPRAZOLE SODIUM 40 MG TABLET PO SCH ×2 (06:10→16:06)
[2017-07-16] MEDS: LEVEMIR FLEXTOUCH 100 UNIT/ML INSULIN PEN SQ SCH ×2 (08:19→17:40)
[2017-07-16] MEDS: NOVOLOG FLEXPEN (INSULIN ASPART) 100 UNITS/ML SQ SCH ×4 (08:19→21:30)
[2017-07-16] MEDS: GEMFIBROZIL 600 MG TABLET PO SCH ×2 (10:24→21:38)
[2017-07-16] MEDS: ASCORBIC ACID 500 MG TAB PO SCH ×2 (10:24→21:33)
[2017-07-16] MEDS: FERROUS SULFATE 325 MG TAB PO SCH ×2 (10:24→21:33)
[2017-07-16] MEDS: LISINOPRIL 10 MG TABLET PO SCH (10:24)
[2017-07-16] MEDS: COLLAGENASE 30 GM TUBE TOP SCH (10:25)
--- NOTE | 2017-07-16 11:25 | Occupational Therapy Tx Note ---
Occupational Therapy Tx Note - Treatment Note Tolerated: Good Total Time Spent With Patient: 45 (ther ex) Occupational Therapy Treatment Note: Detail (S: Pt up in chair, cooperative. O : Pt propelled self to rehab gym, no rest breaks needed. Pt completed toño UE ROM, strengthening and coordination activites using sponges, resistive clothespins, hand helper and 1 1/2 inch pegs for fingertip to thumb opposition, thumb IP extension, hand buffing wheel former strengthening and hand coordination. A: Toño hand strength improving left greater than right, thumb IP stability slowly improving) Occupational Therapy Problem List: Detail (1. Decreased Ind with showering 2. Decreased Ind with total body dressing 3. Decreased coordination needed for Ind ADLs 4. Decreased functional mobility needed for safe and Ind return home) Occupational Therapy Goals: 1. Pt will be safe and Ind with showering in sitting 2. Pt will be Ind with total body dressing 3. Pt will improve coordination to allow Ind with grooming/hygiene tasks 4. Pt will be safe and Ind with functional mobility needed for ADLs/IADLs. Prognosis: Good Occupational Therapy Plan: OT 1-4 times per week to address self cares, functional mobility, UE coordination needed for safe and Ind return home.
[2017-07-16] MEDS: HEPARIN SODIUM FLUSH 100 UNITS/ML SYR 5ML IVP PRN (14:27)
[2017-07-16] MEDS: ATORVASTATIN 20 MG TABLET PO SCH (21:33)
[2017-07-17] MEDS: METRONIDAZOLE 250 MG TABLET PO SCH ×3 (05:41→21:27)
[2017-07-17] MEDS: CEFAZOLIN 2 Gram 2 GM/50 ML BAG IVPB SCH ×3 (05:41→21:29)
[2017-07-17] MEDS: 0.9 % SODIUM CHLORIDE 10ML SYR IVP SCH ×4 (06:12→22:13)
[2017-07-17] MEDS: PANTOPRAZOLE SODIUM 40 MG TABLET PO SCH ×2 (06:12→16:53)
[2017-07-17] MEDS: NOVOLOG FLEXPEN (INSULIN ASPART) 100 UNITS/ML SQ SCH ×4 (07:43→21:29)
[2017-07-17] MEDS: LEVEMIR FLEXTOUCH 100 UNIT/ML INSULIN PEN SQ SCH ×2 (07:44→17:25)
[2017-07-17] MEDS: ASCORBIC ACID 500 MG TAB PO SCH ×2 (10:29→21:29)
[2017-07-17] MEDS: GEMFIBROZIL 600 MG TABLET PO SCH ×2 (10:30→21:30)
[2017-07-17] MEDS: FERROUS SULFATE 325 MG TAB PO SCH ×2 (10:30→21:28)
[2017-07-17] MEDS: LISINOPRIL 10 MG TABLET PO SCH (10:30)
[2017-07-17] MEDS: COLLAGENASE 30 GM TUBE TOP SCH (10:31)
[2017-07-17] MEDS: HEPARIN SODIUM FLUSH 100 UNITS/ML SYR 5ML IVP PRN (16:53)
[2017-07-17] MEDS: ATORVASTATIN 20 MG TABLET PO SCH (21:28)
[2017-07-18] MEDS: METRONIDAZOLE 250 MG TABLET PO SCH ×3 (06:16→22:01)
[2017-07-18] MEDS: PANTOPRAZOLE SODIUM 40 MG TABLET PO SCH ×2 (06:16→17:31)
[2017-07-18] MEDS: CEFAZOLIN 2 Gram 2 GM/50 ML BAG IVPB SCH ×3 (06:16→22:00)
[2017-07-18] MEDS: 0.9 % SODIUM CHLORIDE 10ML SYR IVP SCH ×4 (06:43→22:02)
[2017-07-18] MEDS: LEVEMIR FLEXTOUCH 100 UNIT/ML INSULIN PEN SQ SCH ×2 (09:02→17:31)
[2017-07-18] MEDS: NOVOLOG FLEXPEN (INSULIN ASPART) 100 UNITS/ML SQ SCH ×4 (09:04→22:01)
[2017-07-18] MEDS: ASCORBIC ACID 500 MG TAB PO SCH ×2 (09:57→22:01)
[2017-07-18] MEDS: FERROUS SULFATE 325 MG TAB PO SCH ×2 (09:58→22:01)
[2017-07-18] MEDS: LISINOPRIL 10 MG TABLET PO SCH (09:58)
[2017-07-18] MEDS: COLLAGENASE 30 GM TUBE TOP SCH (09:59)
[2017-07-18] MEDS: GEMFIBROZIL 600 MG TABLET PO SCH ×2 (09:59→22:02)
[2017-07-18] MEDS: HEPARIN SODIUM FLUSH 100 UNITS/ML SYR 5ML IVP PRN (15:46)
[2017-07-18] MEDS: ATORVASTATIN 20 MG TABLET PO SCH (22:01)
[2017-07-19] MEDS: CEFAZOLIN 2 Gram 2 GM/50 ML BAG IVPB SCH ×3 (06:17→21:44)
[2017-07-19] MEDS: PANTOPRAZOLE SODIUM 40 MG TABLET PO SCH ×2 (06:17→16:53)
[2017-07-19] MEDS: METRONIDAZOLE 250 MG TABLET PO SCH ×3 (06:17→22:07)
[2017-07-19] MEDS: 0.9 % SODIUM CHLORIDE 10ML SYR IVP SCH ×4 (06:17→22:38)
[2017-07-19] MEDS: NOVOLOG FLEXPEN (INSULIN ASPART) 100 UNITS/ML SQ SCH ×4 (08:49→22:07)
[2017-07-19] MEDS: LEVEMIR FLEXTOUCH 100 UNIT/ML INSULIN PEN SQ SCH ×2 (08:50→16:50)
[2017-07-19] MEDS: ASCORBIC ACID 500 MG TAB PO SCH ×2 (10:31→22:06)
[2017-07-19] MEDS: FERROUS SULFATE 325 MG TAB PO SCH ×2 (10:31→22:05)
[2017-07-19] MEDS: LISINOPRIL 10 MG TABLET PO SCH (10:32)
[2017-07-19] MEDS: GEMFIBROZIL 600 MG TABLET PO SCH ×2 (10:32→22:06)
[2017-07-19] MEDS: COLLAGENASE 30 GM TUBE TOP SCH (10:33)
[2017-07-19] MEDS: HEPARIN SODIUM FLUSH 100 UNITS/ML SYR 5ML IVP PRN ×2 (16:14→22:38)
[2017-07-19] MEDS: ATORVASTATIN 20 MG TABLET PO SCH (21:45)
[2017-07-20] MEDS: 0.9 % SODIUM CHLORIDE 10ML SYR IVP SCH ×5 (06:30→22:18)
[2017-07-20] MEDS: CEFAZOLIN 2 Gram 2 GM/50 ML BAG IVPB SCH ×3 (06:32→21:30)
[2017-07-20] MEDS: PANTOPRAZOLE SODIUM 40 MG TABLET PO SCH ×2 (06:34→17:17)
[2017-07-20] MEDS: METRONIDAZOLE 250 MG TABLET PO SCH ×3 (06:34→22:13)
[2017-07-20] MEDS: HEPARIN SODIUM FLUSH 100 UNITS/ML SYR 5ML IVP PRN ×2 (07:25→15:20)
[2017-07-20] MEDS: NOVOLOG FLEXPEN (INSULIN ASPART) 100 UNITS/ML SQ SCH ×4 (08:35→22:14)
--- NOTE | 2017-07-20 09:44 | Occupational Therapy Tx Note ---
Occupational Therapy Tx Note - Treatment Note Tolerated: Good Total Time Spent With Patient: 25 Occupational Therapy Treatment Note: Detail (Pt having to leave this morning for appt for debrediment of R foot. He is unable to eat or drink anything prior to this appt and reports feeling "a little weak." Pt willing to engage in therapy in room. Completed todd resistive ex's on velcro board for wrist flex/ ext (5x down & back), finger flex/ext (3x down and back). 1 RB needed for each ex. Completed wrist flex/ext w/ PPS into digit flex & pronation/supination ex's w/ yellow flexbar. Pt required rest breaks but able to complete 2x15 each ex todd. Pt fatigued post treatment.) Occupational Therapy Problem List: Detail (1. Decreased Ind with showering 2. Decreased Ind with total body dressing 3. Decreased coordination needed for Ind ADLs 4. Decreased functional mobility needed for safe and Ind return home) Occupational Therapy Goals: 1. Pt will be safe and Ind with showering in sitting 2. Pt will be Ind with total body dressing 3. Pt will improve coordination to allow Ind with grooming/hygiene tasks 4. Pt will be safe and Ind with functional mobility needed for ADLs/IADLs. Prognosis: Good, Moderate Occupational Therapy Plan: OT 1-4 times per week to address self cares, functional mobility, UE coordination needed for safe and Ind return home.
[2017-07-20] MEDS: LISINOPRIL 10 MG TABLET PO SCH (11:17)
[2017-07-20] MEDS: ASCORBIC ACID 500 MG TAB PO SCH ×2 (11:18→22:13)
[2017-07-20] MEDS: LEVEMIR FLEXTOUCH 100 UNIT/ML INSULIN PEN SQ SCH ×2 (11:18→17:18)
[2017-07-20] MEDS: GEMFIBROZIL 600 MG TABLET PO SCH ×3 (11:18→22:13)
[2017-07-20] MEDS: COLLAGENASE 30 GM TUBE TOP SCH (11:18)
[2017-07-20] MEDS: FERROUS SULFATE 325 MG TAB PO SCH ×2 (11:18→22:13)
[2017-07-20] MEDS: ATORVASTATIN 20 MG TABLET PO SCH (22:13)
[2017-07-21] MEDS: CEFAZOLIN 2 Gram 2 GM/50 ML BAG IVPB SCH ×3 (06:11→21:19)
[2017-07-21] MEDS: METRONIDAZOLE 250 MG TABLET PO SCH ×3 (06:12→21:20)
[2017-07-21] MEDS: PANTOPRAZOLE SODIUM 40 MG TABLET PO SCH (06:12)
[2017-07-21] MEDS: 0.9 % SODIUM CHLORIDE 10ML SYR IVP SCH (06:25)
[2017-07-21] MEDS: NOVOLOG FLEXPEN (INSULIN ASPART) 100 UNITS/ML SQ SCH ×4 (08:25→23:02)
[2017-07-21] MEDS: LEVEMIR FLEXTOUCH 100 UNIT/ML INSULIN PEN SQ SCH ×2 (08:27→17:34)
[2017-07-21] MEDS: LISINOPRIL 10 MG TABLET PO SCH (09:50)
[2017-07-21] MEDS: FERROUS SULFATE 325 MG TAB PO SCH ×2 (09:51→21:20)
[2017-07-21] MEDS: GEMFIBROZIL 600 MG TABLET PO SCH ×2 (09:51→21:20)
[2017-07-21] MEDS: ASCORBIC ACID 500 MG TAB PO SCH ×2 (09:51→21:19)
[2017-07-21] MEDS: ATORVASTATIN 20 MG TABLET PO SCH (21:20)
[2017-07-21] MEDS: COLLAGENASE 30 GM TUBE TOP SCH (21:25)
[2017-07-22] MEDS: 0.9 % SODIUM CHLORIDE 10ML SYR IVP SCH ×3 (06:05→22:22)
[2017-07-22] MEDS: PANTOPRAZOLE SODIUM 40 MG TABLET PO SCH ×3 (06:06→19:55)
[2017-07-22] MEDS: CEFAZOLIN 2 Gram 2 GM/50 ML BAG IVPB SCH ×3 (06:06→22:21)
[2017-07-22] MEDS: METRONIDAZOLE 250 MG TABLET PO SCH ×3 (06:06→22:21)
[2017-07-22] MEDS: NOVOLOG FLEXPEN (INSULIN ASPART) 100 UNITS/ML SQ SCH ×4 (08:51→22:22)
[2017-07-22] MEDS: LEVEMIR FLEXTOUCH 100 UNIT/ML INSULIN PEN SQ SCH ×2 (08:52→17:44)
[2017-07-22] MEDS: LISINOPRIL 10 MG TABLET PO SCH (10:10)
[2017-07-22] MEDS: ASCORBIC ACID 500 MG TAB PO SCH ×2 (10:11→22:20)
[2017-07-22] MEDS: FERROUS SULFATE 325 MG TAB PO SCH ×2 (10:11→22:20)
[2017-07-22] MEDS: GEMFIBROZIL 600 MG TABLET PO SCH ×2 (10:11→22:20)
[2017-07-22] MEDS: COLLAGENASE 30 GM TUBE TOP SCH (10:11)
[2017-07-22] MEDS: ATORVASTATIN 20 MG TABLET PO SCH (22:21)
[2017-07-22] MEDS: HEPARIN SODIUM FLUSH 100 UNITS/ML SYR 5ML IVP PRN (23:05)
[2017-07-23] MEDS: PANTOPRAZOLE SODIUM 40 MG TABLET PO SCH ×2 (06:09→16:48)
[2017-07-23] MEDS: METRONIDAZOLE 250 MG TABLET PO SCH ×3 (06:10→22:29)
[2017-07-23] MEDS: CEFAZOLIN 2 Gram 2 GM/50 ML BAG IVPB SCH ×3 (06:10→22:27)
[2017-07-23] MEDS: 0.9 % SODIUM CHLORIDE 10ML SYR IVP SCH ×4 (06:10→22:30)
[2017-07-23] MEDS: HEPARIN SODIUM FLUSH 100 UNITS/ML SYR 5ML IVP PRN (06:43)
[2017-07-23] MEDS: NOVOLOG FLEXPEN (INSULIN ASPART) 100 UNITS/ML SQ SCH ×4 (08:03→22:26)
[2017-07-23] MEDS: LEVEMIR FLEXTOUCH 100 UNIT/ML INSULIN PEN SQ SCH ×2 (08:03→17:48)
[2017-07-23] MEDS: GEMFIBROZIL 600 MG TABLET PO SCH ×2 (10:55→22:30)
[2017-07-23] MEDS: FERROUS SULFATE 325 MG TAB PO SCH ×2 (10:56→22:29)
[2017-07-23] MEDS: ASCORBIC ACID 500 MG TAB PO SCH ×2 (10:57→22:27)
[2017-07-23] MEDS: LISINOPRIL 10 MG TABLET PO SCH (11:00)
[2017-07-23] MEDS: COLLAGENASE 30 GM TUBE TOP SCH (13:55)
--- NOTE | 2017-07-23 13:59 | Occupational Therapy Tx Note ---
Occupational Therapy Tx Note - Treatment Note Tolerated: Good Total Time Spent With Patient: 50 Occupational Therapy Treatment Note: Detail (Pt self-proppeled w/c from pt room <> rehab gym independently with no RB. Completed wrist stabilization and strengthening ex's w/ velcro board todd. Digit flex/ext resistive ex on velcro board todd. Pron/sup 2x15 todd yellow flexbar. Wrist stabilization todd 2x 30 sec anterior/posterior. Assisted pt w/ nail trimming secondary to sharp jagged edges.) Occupational Therapy Problem List: Detail (1. Decreased Ind with showering 2. Decreased Ind with total body dressing 3. Decreased coordination needed for Ind ADLs 4. Decreased functional mobility needed for safe and Ind return home) Occupational Therapy Goals: 1. Pt will be safe and Ind with showering in sitting 2. Pt will be Ind with total body dressing 3. Pt will improve coordination to allow Ind with grooming/hygiene tasks 4. Pt will be safe and Ind with functional mobility needed for ADLs/IADLs. Prognosis: Good Occupational Therapy Plan: OT 1-4 times per week to address self cares, functional mobility, UE coordination needed for safe and Ind return home.
[2017-07-23] MEDS: ATORVASTATIN 20 MG TABLET PO SCH (22:27)
[2017-07-24] MEDS: CEFAZOLIN 2 Gram 2 GM/50 ML BAG IVPB SCH ×3 (05:36→21:48)
[2017-07-24] MEDS: METRONIDAZOLE 250 MG TABLET PO SCH ×3 (05:37→21:48)
[2017-07-24] MEDS: NYSTATIN 15 GM TUBE TOP PRN (05:37)
[2017-07-24] MEDS: PANTOPRAZOLE SODIUM 40 MG TABLET PO SCH ×2 (06:13→17:35)
[2017-07-24] MEDS: HEPARIN SODIUM FLUSH 100 UNITS/ML SYR 5ML IVP PRN (06:13)
[2017-07-24] MEDS: 0.9 % SODIUM CHLORIDE 10ML SYR IVP SCH ×3 (06:13→21:49)
[2017-07-24] MEDS: NOVOLOG FLEXPEN (INSULIN ASPART) 100 UNITS/ML SQ SCH ×3 (08:00→17:37)
[2017-07-24] MEDS: LEVEMIR FLEXTOUCH 100 UNIT/ML INSULIN PEN SQ SCH ×2 (08:15→17:36)
[2017-07-24] MEDS: GEMFIBROZIL 600 MG TABLET PO SCH ×2 (11:28→21:47)
[2017-07-24] MEDS: FERROUS SULFATE 325 MG TAB PO SCH ×2 (11:28→21:48)
[2017-07-24] MEDS: ASCORBIC ACID 500 MG TAB PO SCH ×2 (11:29→21:48)
[2017-07-24] MEDS: COLLAGENASE 30 GM TUBE TOP SCH (11:29)
[2017-07-24] MEDS: LISINOPRIL 10 MG TABLET PO SCH (11:30)
[2017-07-24] MEDS: ATORVASTATIN 20 MG TABLET PO SCH (21:48)
[2017-07-25] MEDS: NOVOLOG FLEXPEN (INSULIN ASPART) 100 UNITS/ML SQ SCH ×5 (00:58→23:36)
[2017-07-25] MEDS: METRONIDAZOLE 250 MG TABLET PO SCH ×3 (06:06→21:12)
[2017-07-25] MEDS: PANTOPRAZOLE SODIUM 40 MG TABLET PO SCH ×2 (06:06→17:27)
[2017-07-25] MEDS: CEFAZOLIN 2 Gram 2 GM/50 ML BAG IVPB SCH ×3 (06:06→21:13)
[2017-07-25] MEDS: HEPARIN SODIUM FLUSH 100 UNITS/ML SYR 5ML IVP PRN ×2 (06:07→22:00)
[2017-07-25] MEDS: 0.9 % SODIUM CHLORIDE 10ML SYR IVP SCH ×3 (06:07→22:00)
[2017-07-25] MEDS: LEVEMIR FLEXTOUCH 100 UNIT/ML INSULIN PEN SQ SCH ×2 (08:29→17:31)
[2017-07-25] MEDS: GEMFIBROZIL 600 MG TABLET PO SCH ×2 (09:15→21:13)
[2017-07-25] MEDS: LISINOPRIL 10 MG TABLET PO SCH (09:15)
[2017-07-25] MEDS: COLLAGENASE 30 GM TUBE TOP SCH (09:16)
[2017-07-25] MEDS: FERROUS SULFATE 325 MG TAB PO SCH ×2 (09:16→21:13)
[2017-07-25] MEDS: ASCORBIC ACID 500 MG TAB PO SCH ×2 (09:16→21:13)
[2017-07-25] MEDS: ATORVASTATIN 20 MG TABLET PO SCH (21:13)
[2017-07-26] MEDS: METRONIDAZOLE 250 MG TABLET PO SCH ×3 (06:08→21:48)
[2017-07-26] MEDS: CEFAZOLIN 2 Gram 2 GM/50 ML BAG IVPB SCH ×3 (06:08→21:47)
[2017-07-26] MEDS: 0.9 % SODIUM CHLORIDE 10ML SYR IVP SCH ×3 (06:08→21:48)
[2017-07-26] MEDS: PANTOPRAZOLE SODIUM 40 MG TABLET PO SCH ×2 (06:08→16:29)
[2017-07-26] MEDS: HEPARIN SODIUM FLUSH 100 UNITS/ML SYR 5ML IVP PRN ×2 (06:43→15:44)
[2017-07-26] MEDS: LEVEMIR FLEXTOUCH 100 UNIT/ML INSULIN PEN SQ SCH ×2 (08:38→17:58)
[2017-07-26] MEDS: NOVOLOG FLEXPEN (INSULIN ASPART) 100 UNITS/ML SQ SCH ×4 (08:39→21:58)
[2017-07-26] MEDS: LISINOPRIL 10 MG TABLET PO SCH (09:36)
[2017-07-26] MEDS: GEMFIBROZIL 600 MG TABLET PO SCH ×2 (09:36→21:48)
[2017-07-26] MEDS: ASCORBIC ACID 500 MG TAB PO SCH ×2 (09:36→21:48)
[2017-07-26] MEDS: FERROUS SULFATE 325 MG TAB PO SCH ×2 (09:36→21:48)
[2017-07-26] MEDS: COLLAGENASE 30 GM TUBE TOP SCH (16:30)
[2017-07-26] MEDS: ATORVASTATIN 20 MG TABLET PO SCH (21:48)
[2017-07-27] MEDS: PANTOPRAZOLE SODIUM 40 MG TABLET PO SCH ×2 (06:11→15:59)
[2017-07-27] MEDS: CEFAZOLIN 2 Gram 2 GM/50 ML BAG IVPB SCH ×3 (06:11→22:06)
[2017-07-27] MEDS: METRONIDAZOLE 250 MG TABLET PO SCH ×3 (06:11→22:07)
[2017-07-27] MEDS: 0.9 % SODIUM CHLORIDE 10ML SYR IVP SCH ×3 (06:12→22:14)
[2017-07-27] MEDS: LEVEMIR FLEXTOUCH 100 UNIT/ML INSULIN PEN SQ SCH ×2 (07:46→19:09)
[2017-07-27] MEDS: NOVOLOG FLEXPEN (INSULIN ASPART) 100 UNITS/ML SQ SCH ×4 (07:48→22:00)
--- NOTE | 2017-07-27 10:43 | Physical Therapy Tx Note ---
Physical Therapy Tx Note - Treatment Note Tolerated: Good Total Time Spent With Patient: 35 Physical Therapy Tx Note: Detail (Patient states doing good this morning. Patient propelled wheelchair 460 feet. Patient performed the following exercises x20 reps each: seated hip flexion, seated hip abduction with green theraband, seated hip adduction with green theraband, LAQ, hamstring curls with green theraband, seated heel raises, seated toe raises, abdominal isometrics, glut squeezes, shoulder rowing with green theraband, shoulder extension with green theraband, and dips. Patient tolerated treatment well. Patient reports shoulders tired after treatment, patient declined further exercises. Patient was left seated in wheelchair with call light within reach.) Physical Therapy Problem List: Detail (1) Balance impairment 2) Poor safety awareness 3) Inability to assess gait 4) Inability to assess bed mobility 5) LE diminished sensation) Physical Therapy Goals: 1) Pt. will exhibit good understanding of body mechanics /safety awareness with all transfers. 2) Pt. will be independent with all transfers except shower transfers. 3) Pt. will be independent with bed mobility. 4) Pt. will verbalize and demonstrate repositioning techniques while seated to decrease pressure at the sacrum/lower back. Prognosis: Good Physical Therapy Plan: Pt. will be seen 1-2x per day for inpatient physical therapy until goals met.
[2017-07-27] MEDS: FERROUS SULFATE 325 MG TAB PO SCH ×2 (11:41→22:07)
[2017-07-27] MEDS: LISINOPRIL 10 MG TABLET PO SCH (11:42)
[2017-07-27] MEDS: GEMFIBROZIL 600 MG TABLET PO SCH ×2 (11:42→22:07)
[2017-07-27] MEDS: ASCORBIC ACID 500 MG TAB PO SCH ×2 (11:43→22:07)
[2017-07-27] MEDS: HEPARIN SODIUM FLUSH 100 UNITS/ML SYR 5ML IVP PRN (15:59)
[2017-07-27] MEDS: ATORVASTATIN 20 MG TABLET PO SCH (22:07)
[2017-07-28] MEDS: PANTOPRAZOLE SODIUM 40 MG TABLET PO SCH ×2 (06:06→16:28)
[2017-07-28] MEDS: METRONIDAZOLE 250 MG TABLET PO SCH ×3 (06:06→22:26)
[2017-07-28] MEDS: CEFAZOLIN 2 Gram 2 GM/50 ML BAG IVPB SCH ×3 (06:06→21:35)
[2017-07-28] MEDS: COLLAGENASE 30 GM TUBE TOP SCH ×2 (06:07→09:36)
[2017-07-28] MEDS: 0.9 % SODIUM CHLORIDE 10ML SYR IVP SCH ×3 (06:09→22:28)
[2017-07-28] MEDS: NOVOLOG FLEXPEN (INSULIN ASPART) 100 UNITS/ML SQ SCH ×4 (07:23→22:20)
[2017-07-28] MEDS: LEVEMIR FLEXTOUCH 100 UNIT/ML INSULIN PEN SQ SCH ×2 (08:19→17:36)
[2017-07-28] MEDS: GEMFIBROZIL 600 MG TABLET PO SCH ×2 (09:36→22:26)
[2017-07-28] MEDS: ASCORBIC ACID 500 MG TAB PO SCH ×2 (09:36→22:26)
[2017-07-28] MEDS: FERROUS SULFATE 325 MG TAB PO SCH ×2 (09:36→22:26)
[2017-07-28] MEDS: LISINOPRIL 10 MG TABLET PO SCH (09:37)
[2017-07-28] MEDS: ATORVASTATIN 20 MG TABLET PO SCH (22:27)
[2017-07-29] MEDS: METRONIDAZOLE 250 MG TABLET PO SCH ×3 (06:06→21:29)
[2017-07-29] MEDS: 0.9 % SODIUM CHLORIDE 10ML SYR IVP SCH ×3 (06:06→22:00)
[2017-07-29] MEDS: PANTOPRAZOLE SODIUM 40 MG TABLET PO SCH ×2 (06:06→17:04)
[2017-07-29] MEDS: CEFAZOLIN 2 Gram 2 GM/50 ML BAG IVPB SCH ×3 (06:06→21:30)
[2017-07-29] MEDS: NOVOLOG FLEXPEN (INSULIN ASPART) 100 UNITS/ML SQ SCH ×4 (07:47→21:39)
[2017-07-29] MEDS: LEVEMIR FLEXTOUCH 100 UNIT/ML INSULIN PEN SQ SCH ×2 (08:47→17:44)
[2017-07-29] MEDS: GEMFIBROZIL 600 MG TABLET PO SCH ×2 (09:35→21:30)
[2017-07-29] MEDS: ASCORBIC ACID 500 MG TAB PO SCH ×2 (09:36→21:29)
[2017-07-29] MEDS: FERROUS SULFATE 325 MG TAB PO SCH ×2 (09:36→21:29)
[2017-07-29] MEDS: COLLAGENASE 30 GM TUBE TOP SCH (09:36)
[2017-07-29] MEDS: LISINOPRIL 10 MG TABLET PO SCH (09:36)
[2017-07-29] MEDS: ATORVASTATIN 20 MG TABLET PO SCH (21:30)
[2017-07-29] MEDS: HEPARIN SODIUM FLUSH 100 UNITS/ML SYR 5ML IVP PRN (22:00)
[2017-07-30] MEDS: PANTOPRAZOLE SODIUM 40 MG TABLET PO SCH ×2 (06:53→18:01)
[2017-07-30] MEDS: CEFAZOLIN 2 Gram 2 GM/50 ML BAG IVPB SCH ×3 (06:53→21:42)
[2017-07-30] MEDS: METRONIDAZOLE 250 MG TABLET PO SCH ×3 (06:53→21:41)
[2017-07-30] MEDS: 0.9 % SODIUM CHLORIDE 10ML SYR IVP SCH ×4 (07:40→22:31)
[2017-07-30] MEDS: HEPARIN SODIUM FLUSH 100 UNITS/ML SYR 5ML IVP PRN ×3 (07:40→22:31)
[2017-07-30] MEDS: LEVEMIR FLEXTOUCH 100 UNIT/ML INSULIN PEN SQ SCH ×2 (08:51→18:02)
[2017-07-30] MEDS: NOVOLOG FLEXPEN (INSULIN ASPART) 100 UNITS/ML SQ SCH ×4 (08:53→21:45)
[2017-07-30] MEDS: GEMFIBROZIL 600 MG TABLET PO SCH ×2 (09:00→21:39)
[2017-07-30] MEDS: LISINOPRIL 10 MG TABLET PO SCH (09:01)
[2017-07-30] MEDS: FERROUS SULFATE 325 MG TAB PO SCH ×2 (09:01→21:38)
[2017-07-30] MEDS: ASCORBIC ACID 500 MG TAB PO SCH ×2 (09:01→21:39)
[2017-07-30] MEDS: COLLAGENASE 30 GM TUBE TOP SCH (09:01)
--- NOTE | 2017-07-30 09:59 | Occupational Therapy Tx Note ---
Occupational Therapy Tx Note - Treatment Note Tolerated: Good Total Time Spent With Patient: 40 (ther ex) Occupational Therapy Treatment Note: Detail (S: Pt reports he is going home next week. O: Donned boot with max assist to velcro. Able to propel self 75 feet and then became fatigued. Pt completed todd hand strengthening and coor activities with green putty, resisted clothespins. [employer] retested: Right 24#, 30# and Left 29#, 28#. Pt transported back to room via wheelchair. A: Pt presents with increased fatigue today, todd hand coor continues to be impaired although slowly improving. He reports he is able to use hands for self care activities with less difficulty.) Occupational Therapy Problem List: Detail (1. Decreased Ind with showering 2. Decreased Ind with total body dressing 3. Decreased coordination needed for Ind ADLs 4. Decreased functional mobility needed for safe and Ind return home) Occupational Therapy Goals: 1. Pt will be safe and Ind with showering in sitting 2. Pt will be Ind with total body dressing 3. Pt will improve coordination to allow Ind with grooming/hygiene tasks 4. Pt will be safe and Ind with functional mobility needed for ADLs/IADLs. Prognosis: Good Occupational Therapy Plan: OT 1-4 times per week to address self cares, functional mobility, UE coordination needed for safe and Ind return home.
[2017-07-30] MEDS: ATORVASTATIN 20 MG TABLET PO SCH (21:39)
[2017-07-31] MEDS: CEFAZOLIN 2 Gram 2 GM/50 ML BAG IVPB SCH ×3 (07:20→21:47)
[2017-07-31] MEDS: METRONIDAZOLE 250 MG TABLET PO SCH ×3 (07:20→21:48)
[2017-07-31] MEDS: PANTOPRAZOLE SODIUM 40 MG TABLET PO SCH ×2 (07:22→18:20)
[2017-07-31] MEDS: 0.9 % SODIUM CHLORIDE 10ML SYR IVP SCH ×3 (08:04→22:24)
[2017-07-31] MEDS: HEPARIN SODIUM FLUSH 100 UNITS/ML SYR 5ML IVP PRN ×2 (08:04→22:24)
[2017-07-31] MEDS: NOVOLOG FLEXPEN (INSULIN ASPART) 100 UNITS/ML SQ SCH ×4 (08:58→22:00)
[2017-07-31] MEDS: LISINOPRIL 10 MG TABLET PO SCH (09:26)
[2017-07-31] MEDS: ASCORBIC ACID 500 MG TAB PO SCH ×2 (09:26→21:48)
[2017-07-31] MEDS: GEMFIBROZIL 600 MG TABLET PO SCH ×2 (09:27→21:49)
[2017-07-31] MEDS: LEVEMIR FLEXTOUCH 100 UNIT/ML INSULIN PEN SQ SCH ×2 (09:27→18:20)
[2017-07-31] MEDS: FERROUS SULFATE 325 MG TAB PO SCH ×2 (09:27→21:49)
[2017-07-31] MEDS: COLLAGENASE 30 GM TUBE TOP SCH (18:09)
[2017-07-31] MEDS: ATORVASTATIN 20 MG TABLET PO SCH (21:48)
[2017-08-01] MEDS: CEFAZOLIN 2 Gram 2 GM/50 ML BAG IVPB SCH ×3 (06:25→21:33)
[2017-08-01] MEDS: METRONIDAZOLE 250 MG TABLET PO SCH ×3 (06:31→21:33)
[2017-08-01] MEDS: PANTOPRAZOLE SODIUM 40 MG TABLET PO SCH ×2 (06:34→17:12)
[2017-08-01] MEDS: LEVEMIR FLEXTOUCH 100 UNIT/ML INSULIN PEN SQ SCH ×2 (09:02→17:50)
[2017-08-01] MEDS: ASCORBIC ACID 500 MG TAB PO SCH ×2 (09:04→21:37)
[2017-08-01] MEDS: LISINOPRIL 10 MG TABLET PO SCH (09:05)
[2017-08-01] MEDS: GEMFIBROZIL 600 MG TABLET PO SCH ×2 (09:05→21:34)
[2017-08-01] MEDS: FERROUS SULFATE 325 MG TAB PO SCH ×2 (09:05→21:33)
[2017-08-01] MEDS: NOVOLOG FLEXPEN (INSULIN ASPART) 100 UNITS/ML SQ SCH ×4 (09:07→21:38)
[2017-08-01] MEDS: COLLAGENASE 30 GM TUBE TOP SCH (13:12)
[2017-08-01] MEDS: 0.9 % SODIUM CHLORIDE 10ML SYR IVP SCH ×3 (15:10→23:03)
[2017-08-01] MEDS: HEPARIN SODIUM FLUSH 100 UNITS/ML SYR 5ML IVP PRN ×2 (16:00→23:03)
[2017-08-01] MEDS: ATORVASTATIN 20 MG TABLET PO SCH (21:34)
[2017-08-02] MEDS: METRONIDAZOLE 250 MG TABLET PO SCH ×3 (06:13→21:09)
[2017-08-02] MEDS: CEFAZOLIN 2 Gram 2 GM/50 ML BAG IVPB SCH ×2 (06:13→15:41)
[2017-08-02] MEDS: PANTOPRAZOLE SODIUM 40 MG TABLET PO SCH ×2 (06:14→18:40)
[2017-08-02] MEDS: 0.9 % SODIUM CHLORIDE 10ML SYR IVP SCH ×3 (06:45→22:35)
[2017-08-02] MEDS: LEVEMIR FLEXTOUCH 100 UNIT/ML INSULIN PEN SQ SCH ×2 (08:10→18:41)
[2017-08-02] MEDS: NOVOLOG FLEXPEN (INSULIN ASPART) 100 UNITS/ML SQ SCH ×4 (08:41→22:34)
--- NOTE | 2017-08-02 10:35 | Rehab Discharge Summary ---
Patient Information - Patient Information Diagnosis: diabetic foot ulcer with osteomyelitis Ordered Treatment: PT Evaluate and Treat Surgery: No History: Detail (Pt. reports history of above the knee amputation, pressure sores, sensory impairment RLE. PICC line inserted.) Past Med/Lilian Hx Detail: Detail (Above the knee amputation. Please see additional intake forms. Pt. reports that he is "legally blind".) Past Medical/Surgical Hx: PAST MEDICAL/SURGICAL HISTORY Past Surgical History Left Above knee amputation 2006 bowel resection 2016 PMH - Respiratory Hx Respiratory Disorders No PMH - Cardiovascular Hx Cardiovascular Disorders Yes Hx Hypertension Yes Hx Vascular Disease Yes: left AKA amputation 2009 from DM Comment: high cholesterol PMH - Neuro Hx Neurological Disorders No Hx Seizures No Hx Weakness Yes: deconditioned from hospitaliztion PMH - GI Hx Gastrointestinal Disorders No PMH - Hx Genitourinary Disorders No PMH - Endocrine Hx Endocrine Disorders Yes Hx 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 He has an elevated toilet seat with grab bars, a walk in shower with a shower chair and grab bars as well as a wheelchair and front wheeled walker. He is Ind with self cares with the exception of transferring into the shower, his assists him. He and spouse share home mgmt, meal prep and laundry. Pt uses wheelchair for all mobility except transferring to toilet at which time he uses the walker.) Social History: Detail (Pt. lives with his in a single story apartment and has no steps leading into the home. Pt. has an elevated toilet seat, grab bars, shower chair, wheel chair, and front wheeled walker.) Precautions: [place], Fall, Other (Legally blind) - Time With Patient Total Time Spent With Patient (Min): 15 Treatment Procedures: Detail (Revaluation, Therapuetic Exercise , Review of HEP) Subjective Information - Subjective Information Per Patient (The patient had no complaints. The patient felt his endurance for physical activity was improved.) Objective Data - Mental Status Patient Orientation: Oriented x3 - Visual Perception Deficit - ROM Not within normal limits (The patient's LE AROM is WNL except for R knee extension seated which is -20 degrees.) - Strength/Tone Within normal limits (The patient's LE strength is generally 5/5.) - Bed Mobility Independent (The patient is independent with supine to and from sit transfer, and scooting up in bed.) - Transfers Independent (The patient is Independent with sit to and from stand transfer, toilet transfer and wheelchair to bed transfer using a front approach. The patient has good safety awareness when transferring.) - Balance Balance Sitting: Good Balance Standing: Fair - Gait Detail (Nonambulatory) - Special Tests Yes (Wheelchair mobility: The patient propels his wheelchair independently a distance of 200 feet plus with one rest period.) Therapy Assessment - Therapy Assessment Detail (The patient is independent with all mobility and transfers and doemonstrates good safety awareness with transfers. The patient is independent with a home exercise program of UE and LE strengthening exercises and proper pressure relief techniques.) Patient Education - Patient Education Teaching Topic: Exercise/Activity (LE and UE strengthening exercises.), Precautions (pressure relief techniques) Response: Return Demonstration Teaching Method: Discussion, Demonstration, Handout Teaching Recipient: Patient Barriers To Learning: Age Related, Visual Problem List - Problem List Physical Therapy Problem List: Detail (1) Balance impairment 2) Poor safety awareness 3) Inability to assess gait 4) Inability to assess bed mobility 5) LE diminished sensation) Occupational Therapy Problem List: Detail (1. Decreased Ind with showering 2. Decreased Ind with total body dressing 3. Decreased coordination needed for Ind ADLs 4. Decreased functional mobility needed for safe and Ind return home) Goals - Goals Physical Therapy Goals: GOALS MET: 1) Pt. will exhibit good understanding of body mechanics/safety awareness with all transfers. 2) Pt. will be independent with all transfers except shower transfers. 3) Pt. will be independent with bed mobility. 4) Pt. will verbalize and demonstrate repositioning techniques while seated to decrease pressure at the sacrum/lower back. Occupational Therapy Goals: 1. Pt will be safe and Ind with showering in sitting 2. Pt will be Ind with total body dressing 3. Pt will improve coordination to allow Ind with grooming/hygiene tasks 4. Pt will be safe and Ind with functional mobility needed for ADLs/IADLs. Plan - Plan Physical Therapy Plan: The patient is to discharge to home on 08/02/17 and is to continue with HEP. Occupational Therapy Plan: OT 1-4 times per week to address self cares, functional mobility, UE coordination needed for safe and Ind return home.
[2017-08-02] MEDS: LISINOPRIL 10 MG TABLET PO SCH (10:47)
[2017-08-02] MEDS: FERROUS SULFATE 325 MG TAB PO SCH ×2 (10:47→21:09)
[2017-08-02] MEDS: GEMFIBROZIL 600 MG TABLET PO SCH (10:47)
[2017-08-02] MEDS: ASCORBIC ACID 500 MG TAB PO SCH ×2 (10:47→21:09)
[2017-08-02] MEDS: COLLAGENASE 30 GM TUBE TOP SCH (10:52)
[2017-08-02 13:15] LABS: BASO % 0.1 % (0-6); EOS % 3.8 % (0-6); GRAN % 79.3 % (47-80); HEMATOCRIT 26.9 % (42.0-52.0); HEMOGLOBIN 8.4 gm/dl (14.0-18.0); MEAN CELL VOLUME 88.2 fl (81-97); MEAN CORPUSCULAR HEMOGLOBIN 27.5 pg (27-33); MEAN CORPUSCULAR HGB CONC 31.2 g/dl (32-36); MEAN PLATELET VOLUME 9.4 fl (7.4-10.4); MONO % 8.8 % (0-9); PLATELET COUNT 326 K/uL (130-400); RED BLOOD COUNT 3.05 M/uL (4.40-5.70); RED CELL DISTRIBUTION WIDTH 16.8 % (11.5-14.5)
[2017-08-02 14:41] LABS: CREATININE 3.6 mg/dL (0.7-1.2)
[2017-08-02 14:50] LABS: BLOOD UREA NITROGEN 134.1 mg/dL (17.4-49.2)
[2017-08-02] MEDS ORDERED: SPS 15 GM/60 ML PO ONE (15:22)
[2017-08-02] MEDS: CEFAZOLIN 1 Gram 1 GM/50 ML BAG IVPB SCH (18:43)
[2017-08-02] MEDS: ATORVASTATIN 20 MG TABLET PO SCH (21:09)
[2017-08-03] MEDS: PANTOPRAZOLE SODIUM 40 MG TABLET PO SCH (06:01)
[2017-08-03] MEDS: METRONIDAZOLE 250 MG TABLET PO SCH ×2 (06:01→14:57)
[2017-08-03] MEDS: CEFAZOLIN 1 Gram 1 GM/50 ML BAG IVPB SCH (06:01)
[2017-08-03] MEDS: 0.9 % SODIUM CHLORIDE 10ML SYR IVP SCH ×2 (06:42→14:57)
[2017-08-03] MEDS: NOVOLOG FLEXPEN (INSULIN ASPART) 100 UNITS/ML SQ SCH ×2 (08:18→12:52)
[2017-08-03] MEDS: LEVEMIR FLEXTOUCH 100 UNIT/ML INSULIN PEN SQ SCH (08:19)
[2017-08-03] MEDS: ASCORBIC ACID 500 MG TAB PO SCH (10:24)
[2017-08-03] MEDS: FERROUS SULFATE 325 MG TAB PO SCH (10:24)
[2017-08-03] MEDS: COLLAGENASE 30 GM TUBE TOP SCH (10:26)
--- NOTE | 2017-08-03 12:48 | Discharge Summary ---
Providers Date of admission: 06/19/17 19:24 Expected Date of Discharge: 08/03/17 Attending physician: Avi Llanes Primary care physician: Nabor Garcia Consults: Consult Orders 06/29/17 08:00 Consult NOW Consulting Provider: NADEEM DUNN Physician Instructions: Reason For Exam: Foot Ulcer 07/16/17 14:20 Consult NOW Consulting Provider: NADEEM DUNN Physician Instructions: schedule for swing bed friday 07/20 Reason For Exam: Debridement per Dr. Ventura Physical Exam - Vital Signs Vital Signs: Vital Signs - Last 24 Hrs Temp Pulse Resp BP Pulse Ox 08/03/17 07:30 98.8 F 99 H 16 95/44 99 08/02/17 20:00 99.2 F 95 H 18 121/68 100 - General General Appearance: Alert, Oriented x3, Cooperative, No acute distress - Head Head exam: Normal inspection - Eye Eye exam: Normal appearance, PERRL Pupils: Normal accommodation - ENT ENT exam: Normal exam, Mucous membranes moist, Normal external ear exam, Normal orophraynx, TM's normal bilaterally Ear exam: Normal external inspection. negative: External canal tenderness Nasal Exam: Normal inspection. negative: Discharge, Sinus tenderness Mouth exam: Normal external inspection, Tongue normal Teeth exam: Normal inspection, Other (multiple teeth gone). negative: Dental caries Throat exam: Normal inspection. negative: Tonsillar erythema, Tonsillar exudate - Neck Neck exam: Normal inspection, Full ROM. negative: Tenderness - Respiratory Respiratory exam: Normal lung sounds bilaterally. negative: Respiratory distress - Cardiovascular Cardiovascular Exam: Regular rate, Normal rhythm, Normal heart sounds - GI/Abdominal GI/Abdominal exam: Soft, Normal bowel sounds. negative: Tenderness - Rectal Rectal exam: Deferred - exam: Deferred - Extremities Extremities exam: Full ROM, Normal capillary refill, Other (left leg above the knee). negative: Tenderness - Back Back exam: Reports: Normal inspection, Full ROM. Denies: Muscle spasm, Rash noted, Tenderness - Neurological Neurological exam: Alert, Normal gait, Oriented X3, Reflexes normal - Psychiatric Psychiatric exam: Normal affect, Normal mood - Skin Skin exam: Other (draining ulceration right later foot with loose skin and using luis carlos cream(collagenase),black escar and picture taken ) Hospitalization - Hospitalization Admission Diagnosis: diabetic foot ulcer with osteomyelitis. Diabetes mellitus type 2 with insulin use. Left AKA 2009. PAD. hypercholesterolemia. 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 Chronic kidney disease stage: stage 4 (severe) Qualified Code(s): E11.22 - Type 2 diabetes mellitus with diabetic chronic kidney disease; N18.4 - Chronic kidney disease, stage 4 (severe); Z79.4 - truck terminal manager (current) use of insulin Base Code: E11.9 - TYPE 2 DIABETES MELLITUS WITHOUT COMPLICATIONS (3) Ulcerated, foot Current Visit: Yes Status: Acute Discharge Diagnosis: Laterality: right Non-pressure ulcer stage: limited to breakdown of skin Qualified Code(s): L97.511 - Non-pressure chronic ulcer of other part of right foot limited to breakdown of skin Base Code: L97.509 - NON-PRESSURE CHRONIC ULCER OTH PRT UNSP FOOT W UNSP SEVERITY (4) Osteomyelitis of foot, acute Current Visit: Yes Status: Acute Base Code: M86.179 - OTHER ACUTE OSTEOMYELITIS, UNSPECIFIED ANKLE AND FOOT Onset Date: ~06/03/17 (5) History of sepsis Current Visit: Yes Status: Acute Base Code: Z86.19 - PERSONAL HISTORY OF OTHER INFECTIOUS AND PARASITIC DISEASES Onset Date: ~06/05/17 (6) Hypertension Current Visit: Yes Status: Acute Discharge Diagnosis: Hypertension type: essential hypertension Qualified Code(s): I10 - Essential (primary) hypertension Base Code: I10 - ESSENTIAL (PRIMARY) HYPERTENSION (7) PAD (peripheral artery disease) Current Visit: Yes Status: Acute Base Code: I73.9 - PERIPHERAL VASCULAR DISEASE, UNSPECIFIED (8) CRF (chronic renal failure) Current Visit: No Status: Acute Discharge Diagnosis: Chronic kidney disease stage: stage 4 (severe) Qualified Code(s): N18.4 - Chronic kidney disease, stage 4 (severe) Base Code: N18.9 - CHRONIC KIDNEY DISEASE, UNSPECIFIED Comment: discharge tomorrow (9) Cellulitis of leg Current Visit: Yes Status: Acute Discharge Diagnosis: Laterality: right Qualified Code(s): L03.115 - Cellulitis of right lower limb Base Code: L03.119 - CELLULITIS OF UNSPECIFIED PART OF LIMB - Hospitalization Course Disposition: Still a Patient at [facility] Abnormal Labs: Abnormal Lab Results 06/19/17 06/20/17 06/20/17 Range/Units 21:55 07:47 11:33 RBC (4.40-5.70) M/uL Hgb (14.0-18.0) gm/dl Hct (42.0-52.0) % MCHC (32-36) g/dl RDW (11.5-14.5) % Plt Count (130-400) K/uL Neutrophils % (47-80) % Lymphocytes % (16-45) % Eosinophils % (0-6) % Lymphocytes (16-45) % ESR (0-20) mm/hr Eosinophil Count (0-6) % Sodium (136-145) mmol/L Potassium (3.4-4.5) mmol/L Chloride (98-107) mmol/L Carbon Dioxide (22-30) mmol/L Anion Gap (7-16) BUN (9-20) mg/dL Creatinine (0.66-1.25) mg/dL POC Glucose 154 H 142 H 224 H (70-110) mg/dL Random Glucose (70-110) mg/dL Calcium (8.5-10.1) mg/dL Magnesium (1.6-2.3) mg/dL Iron (49-181) ug/dL TIBC (261-462) ug/dL % Saturation (20-50) % AST (10.0-50.0) U/L C-Reactive Protein (0.0-0.9) mg/dL 06/20/17 06/20/17 06/21/17 Range/Units 17:30 21:34 06:15 RBC 2.52 L (4.40-5.70) M/uL Hgb 7.1 L (14.0-18.0) gm/dl Hct 22.8 L (42.0-52.0) % MCHC 31.1 L (32-36) g/dl RDW 14.8 H (11.5-14.5) % Plt Count (130-400) K/uL Neutrophils % 84.0 H (47-80) % Lymphocytes % (16-45) % Eosinophils % (0-6) % Lymphocytes 13.0 L (16-45) % ESR (0-20) mm/hr Eosinophil Count (0-6) % Sodium (136-145) mmol/L Potassium (3.4-4.5) mmol/L Chloride (98-107) mmol/L Carbon Dioxide (22-30) mmol/L Anion Gap (7-16) BUN (9-20) mg/dL Creatinine (0.66-1.25) mg/dL POC Glucose 243 H 202 H (70-110) mg/dL Random Glucose (70-110) mg/dL Calcium (8.5-10.1) mg/dL Magnesium (1.6-2.3) mg/dL Iron (49-181) ug/dL TIBC (261-462) ug/dL % Saturation (20-50) % AST (10.0-50.0) U/L C-Reactive Protein (0.0-0.9) mg/dL 06/21/17 06/21/17 06/21/17 Range/Units 06:15 06:15 07:30 RBC (4.40-5.70) M/uL Hgb (14.0-18.0) gm/dl Hct (42.0-52.0) % MCHC (32-36) g/dl RDW (11.5-14.5) % Plt Count (130-400) K/uL Neutrophils % (47-80) % Lymphocytes % (16-45) % Eosinophils % (0-6) % Lymphocytes (16-45) % ESR (0-20) mm/hr Eosinophil Count (0-6) % Sodium (136-145) mmol/L Potassium (3.4-4.5) mmol/L Chloride 112 H (98-107) mmol/L Carbon Dioxide 20.6 L (22-30) mmol/L Anion Gap (7-16) BUN 21 H (9-20) mg/dL Creatinine 2.2 H (0.66-1.25) mg/dL POC Glucose 171 H (70-110) mg/dL Random Glucose 171 H (70-110) mg/dL Calcium 8.0 L (8.5-10.1) mg/dL Magnesium 1.5 L (1.6-2.3) mg/dL Iron 34 L (49-181) ug/dL TIBC 219 L (261-462) ug/dL % Saturation 15 L (20-50) % AST (10.0-50.0) U/L C-Reactive Protein (0.0-0.9) mg/dL 06/21/17 06/21/17 06/21/17 Range/Units 11:50 17:00 21:41 RBC (4.40-5.70) M/uL Hgb (14.0-18.0) gm/dl Hct (42.0-52.0) % MCHC (32-36) g/dl RDW (11.5-14.5) % Plt Count (130-400) K/uL Neutrophils % (47-80) % Lymphocytes % (16-45) % Eosinophils % (0-6) % Lymphocytes (16-45) % ESR (0-20) mm/hr Eosinophil Count (0-6) % Sodium (136-145) mmol/L Potassium (3.4-4.5) mmol/L Chloride (98-107) mmol/L Carbon Dioxide (22-30) mmol/L Anion Gap (7-16) BUN (9-20) mg/dL Creatinine (0.66-1.25) mg/dL POC Glucose 293 H 184 H 213 H (70-110) mg/dL Random Glucose (70-110) mg/dL Calcium (8.5-10.1) mg/dL Magnesium (1.6-2.3) mg/dL Iron (49-181) ug/dL TIBC (261-462) ug/dL % Saturation (20-50) % AST (10.0-50.0) U/L C-Reactive Protein (0.0-0.9) mg/dL 06/22/17 06/22/17 06/22/17 Range/Units 07:40 11:44 17:16 RBC (4.40-5.70) M/uL Hgb (14.0-18.0) gm/dl Hct (42.0-52.0) % MCHC (32-36) g/dl RDW (11.5-14.5) % Plt Count (130-400) K/uL Neutrophils % (47-80) % Lymphocytes % (16-45) % Eosinophils % (0-6) % Lymphocytes (16-45) % ESR (0-20) mm/hr Eosinophil Count (0-6) % Sodium (136-145) mmol/L Potassium (3.4-4.5) mmol/L Chloride (98-107) mmol/L Carbon Dioxide (22-30) mmol/L Anion Gap (7-16) BUN (9-20) mg/dL Creatinine (0.66-1.25) mg/dL POC Glucose 170 H 263 H 200 H (70-110) mg/dL Random Glucose (70-110) mg/dL Calcium (8.5-10.1) mg/dL Magnesium (1.6-2.3) mg/dL Iron (49-181) ug/dL TIBC (261-462) ug/dL % Saturation (20-50) % AST (10.0-50.0) U/L C-Reactive Protein (0.0-0.9) mg/dL 06/22/17 06/23/17 06/23/17 Range/Units 21:22 07:54 11:50 RBC (4.40-5.70) M/uL Hgb (14.0-18.0) gm/dl Hct (42.0-52.0) % MCHC (32-36) g/dl RDW (11.5-14.5) % Plt Count (130-400) K/uL Neutrophils % (47-80) % Lymphocytes % (16-45) % Eosinophils % (0-6) % Lymphocytes (16-45) % ESR (0-20) mm/hr Eosinophil Count (0-6) % Sodium (136-145) mmol/L Potassium (3.4-4.5) mmol/L Chloride (98-107) mmol/L Carbon Dioxide (22-30) mmol/L Anion Gap (7-16) BUN (9-20) mg/dL Creatinine (0.66-1.25) mg/dL POC Glucose 261 H 192 H 253 H (70-110) mg/dL Random Glucose (70-110) mg/dL Calcium (8.5-10.1) mg/dL Magnesium (1.6-2.3) mg/dL Iron (49-181) ug/dL TIBC (261-462) ug/dL % Saturation (20-50) % AST (10.0-50.0) U/L C-Reactive Protein (0.0-0.9) mg/dL 06/23/17 06/23/17 06/24/17 Range/Units 17:13 22:26 07:30 RBC (4.40-5.70) M/uL Hgb (14.0-18.0) gm/dl Hct (42.0-52.0) % MCHC (32-36) g/dl RDW (11.5-14.5) % Plt Count (130-400) K/uL Neutrophils % (47-80) % Lymphocytes % (16-45) % Eosinophils % (0-6) % Lymphocytes (16-45) % ESR (0-20) mm/hr Eosinophil Count (0-6) % Sodium (136-145) mmol/L Potassium (3.4-4.5) mmol/L Chloride (98-107) mmol/L Carbon Dioxide (22-30) mmol/L Anion Gap (7-16) BUN (9-20) mg/dL Creatinine (0.66-1.25) mg/dL POC Glucose 192 H 201 H 170 H (70-110) mg/dL Random Glucose (70-110) mg/dL Calcium (8.5-10.1) mg/dL Magnesium (1.6-2.3) mg/dL Iron (49-181) ug/dL TIBC (261-462) ug/dL % Saturation (20-50) % AST (10.0-50.0) U/L C-Reactive Protein (0.0-0.9) mg/dL 06/24/17 06/24/17 06/24/17 Range/Units 11:54 17:14 22:20 RBC (4.40-5.70) M/uL Hgb (14.0-18.0) gm/dl Hct (42.0-52.0) % MCHC (32-36) g/dl RDW (11.5-14.5) % Plt Count (130-400) K/uL Neutrophils % (47-80) % Lymphocytes % (16-45) % Eosinophils % (0-6) % Lymphocytes (16-45) % ESR (0-20) mm/hr Eosinophil Count (0-6) % Sodium (136-145) mmol/L Potassium (3.4-4.5) mmol/L Chloride (98-107) mmol/L Carbon Dioxide (22-30) mmol/L Anion Gap (7-16) BUN (9-20) mg/dL Creatinine (0.66-1.25) mg/dL POC Glucose 238 H 169 H 175 H (70-110) mg/dL Random Glucose (70-110) mg/dL Calcium (8.5-10.1) mg/dL Magnesium (1.6-2.3) mg/dL Iron (49-181) ug/dL TIBC (261-462) ug/dL % Saturation (20-50) % AST (10.0-50.0) U/L C-Reactive Protein (0.0-0.9) mg/dL 06/25/17 06/25/17 06/25/17 Range/Units 07:30 11:30 17:00 RBC (4.40-5.70) M/uL Hgb (14.0-18.0) gm/dl Hct (42.0-52.0) % MCHC (32-36) g/dl RDW (11.5-14.5) % Plt Count (130-400) K/uL Neutrophils % (47-80) % Lymphocytes % (16-45) % Eosinophils % (0-6) % Lymphocytes (16-45) % ESR (0-20) mm/hr Eosinophil Count (0-6) % Sodium (136-145) mmol/L Potassium (3.4-4.5) mmol/L Chloride (98-107) mmol/L Carbon Dioxide (22-30) mmol/L Anion Gap (7-16) BUN (9-20) mg/dL Creatinine (0.66-1.25) mg/dL POC Glucose 153 H 188 H 175 H (70-110) mg/dL Random Glucose (70-110) mg/dL Calcium (8.5-10.1) mg/dL Magnesium (1.6-2.3) mg/dL Iron (49-181) ug/dL TIBC (261-462) ug/dL % Saturation (20-50) % AST (10.0-50.0) U/L C-Reactive Protein (0.0-0.9) mg/dL 06/25/17 06/26/17 06/26/17 Range/Units 22:00 07:30 12:00 RBC (4.40-5.70) M/uL Hgb (14.0-18.0) gm/dl Hct (42.0-52.0) % MCHC (32-36) g/dl RDW (11.5-14.5) % Plt Count (130-400) K/uL Neutrophils % (47-80) % Lymphocytes % (16-45) % Eosinophils % (0-6) % Lymphocytes (16-45) % ESR (0-20) mm/hr Eosinophil Count (0-6) % Sodium (136-145) mmol/L Potassium (3.4-4.5) mmol/L Chloride (98-107) mmol/L Carbon Dioxide (22-30) mmol/L Anion Gap (7-16) BUN (9-20) mg/dL Creatinine (0.66-1.25) mg/dL POC Glucose 136 H 128 H 182 H (70-110) mg/dL Random Glucose (70-110) mg/dL Calcium (8.5-10.1) mg/dL Magnesium (1.6-2.3) mg/dL Iron (49-181) ug/dL TIBC (261-462) ug/dL % Saturation (20-50) % AST (10.0-50.0) U/L C-Reactive Protein (0.0-0.9) mg/dL 06/26/17 06/26/17 06/27/17 Range/Units 17:52 22:00 07:08 RBC (4.40-5.70) M/uL Hgb (14.0-18.0) gm/dl Hct (42.0-52.0) % MCHC (32-36) g/dl RDW (11.5-14.5) % Plt Count (130-400) K/uL Neutrophils % (47-80) % Lymphocytes % (16-45) % Eosinophils % (0-6) % Lymphocytes (16-45) % ESR (0-20) mm/hr Eosinophil Count (0-6) % Sodium (136-145) mmol/L Potassium (3.4-4.5) mmol/L Chloride (98-107) mmol/L Carbon Dioxide (22-30) mmol/L Anion Gap (7-16) BUN (9-20) mg/dL Creatinine (0.66-1.25) mg/dL POC Glucose 132 H 189 H 129 H (70-110) mg/dL Random Glucose (70-110) mg/dL Calcium (8.5-10.1) mg/dL Magnesium (1.6-2.3) mg/dL Iron (49-181) ug/dL TIBC (261-462) ug/dL % Saturation (20-50) % AST (10.0-50.0) U/L C-Reactive Protein (0.0-0.9) mg/dL 06/27/17 06/27/17 06/27/17 Range/Units 12:22 17:48 21:57 RBC (4.40-5.70) M/uL Hgb (14.0-18.0) gm/dl Hct (42.0-52.0) % MCHC (32-36) g/dl RDW (11.5-14.5) % Plt Count (130-400) K/uL Neutrophils % (47-80) % Lymphocytes % (16-45) % Eosinophils % (0-6) % Lymphocytes (16-45) % ESR (0-20) mm/hr Eosinophil Count (0-6) % Sodium (136-145) mmol/L Potassium (3.4-4.5) mmol/L Chloride (98-107) mmol/L Carbon Dioxide (22-30) mmol/L Anion Gap (7-16) BUN (9-20) mg/dL Creatinine (0.66-1.25) mg/dL POC Glucose 145 H 123 H 151 H (70-110) mg/dL Random Glucose (70-110) mg/dL Calcium (8.5-10.1) mg/dL Magnesium (1.6-2.3) mg/dL Iron (49-181) ug/dL TIBC (261-462) ug/dL % Saturation (20-50) % AST (10.0-50.0) U/L C-Reactive Protein (0.0-0.9) mg/dL 06/28/17 06/28/17 06/28/17 Range/Units 06:18 06:18 07:15 RBC 2.36 L (4.40-5.70) M/uL Hgb 6.4 L* (14.0-18.0) gm/dl Hct 21.5 L (42.0-52.0) % MCHC 29.8 L (32-36) g/dl RDW 15.6 H (11.5-14.5) % Plt Count 403 H (130-400) K/uL Neutrophils % (47-80) % Lymphocytes % (16-45) % Eosinophils % (0-6) % Lymphocytes 11.0 L (16-45) % ESR (0-20) mm/hr Eosinophil Count 12.0 H (0-6) % Sodium (136-145) mmol/L Potassium (3.4-4.5) mmol/L Chloride (98-107) mmol/L Carbon Dioxide (22-30) mmol/L Anion Gap (7-16) BUN (9-20) mg/dL Creatinine (0.66-1.25) mg/dL POC Glucose 122 H (70-110) mg/dL Random Glucose (70-110) mg/dL Calcium (8.5-10.1) mg/dL Magnesium (1.6-2.3) mg/dL Iron 36 L (49-181) ug/dL TIBC (261-462) ug/dL % Saturation (20-50) % AST (10.0-50.0) U/L C-Reactive Protein (0.0-0.9) mg/dL 06/28/17 06/28/17 06/28/17 Range/Units 11:30 13:43 16:25 RBC (4.40-5.70) M/uL Hgb 7.8 L (14.0-18.0) gm/dl Hct 25.6 L (42.0-52.0) % MCHC (32-36) g/dl RDW (11.5-14.5) % Plt Count (130-400) K/uL Neutrophils % (47-80) % Lymphocytes % (16-45) % Eosinophils % (0-6) % Lymphocytes (16-45) % ESR (0-20) mm/hr Eosinophil Count (0-6) % Sodium (136-145) mmol/L Potassium (3.4-4.5) mmol/L Chloride (98-107) mmol/L Carbon Dioxide (22-30) mmol/L Anion Gap (7-16) BUN (9-20) mg/dL Creatinine (0.66-1.25) mg/dL POC Glucose 175 H 136 H (70-110) mg/dL Random Glucose (70-110) mg/dL Calcium (8.5-10.1) mg/dL Magnesium (1.6-2.3) mg/dL Iron (49-181) ug/dL TIBC (261-462) ug/dL % Saturation (20-50) % AST (10.0-50.0) U/L C-Reactive Protein (0.0-0.9) mg/dL 06/28/17 06/29/17 06/29/17 Range/Units 22:00 06:47 11:30 RBC (4.40-5.70) M/uL Hgb (14.0-18.0) gm/dl Hct (42.0-52.0) % MCHC (32-36) g/dl RDW (11.5-14.5) % Plt Count (130-400) K/uL Neutrophils % (47-80) % Lymphocytes % (16-45) % Eosinophils % (0-6) % Lymphocytes (16-45) % ESR (0-20) mm/hr Eosinophil Count (0-6) % Sodium (136-145) mmol/L Potassium (3.4-4.5) mmol/L Chloride (98-107) mmol/L Carbon Dioxide (22-30) mmol/L Anion Gap (7-16) BUN (9-20) mg/dL Creatinine (0.66-1.25) mg/dL POC Glucose 143 H 124 H 155 H (70-110) mg/dL Random Glucose (70-110) mg/dL Calcium (8.5-10.1) mg/dL Magnesium (1.6-2.3) mg/dL Iron (49-181) ug/dL TIBC (261-462) ug/dL % Saturation (20-50) % AST (10.0-50.0) U/L C-Reactive Protein (0.0-0.9) mg/dL 06/29/17 06/29/17 06/30/17 Range/Units 17:00 22:00 06:58 RBC (4.40-5.70) M/uL Hgb (14.0-18.0) gm/dl Hct (42.0-52.0) % MCHC (32-36) g/dl RDW (11.5-14.5) % Plt Count (130-400) K/uL Neutrophils % (47-80) % Lymphocytes % (16-45) % Eosinophils % (0-6) % Lymphocytes (16-45) % ESR (0-20) mm/hr Eosinophil Count (0-6) % Sodium (136-145) mmol/L Potassium (3.4-4.5) mmol/L Chloride (98-107) mmol/L Carbon Dioxide (22-30) mmol/L Anion Gap (7-16) BUN (9-20) mg/dL Creatinine (0.66-1.25) mg/dL POC Glucose 136 H 134 H 123 H (70-110) mg/dL Random Glucose (70-110) mg/dL Calcium (8.5-10.1) mg/dL Magnesium (1.6-2.3) mg/dL Iron (49-181) ug/dL TIBC (261-462) ug/dL % Saturation (20-50) % AST (10.0-50.0) U/L C-Reactive Protein (0.0-0.9) mg/dL 06/30/17 06/30/17 06/30/17 Range/Units 11:37 17:00 22:00 RBC (4.40-5.70) M/uL Hgb (14.0-18.0) gm/dl Hct (42.0-52.0) % MCHC (32-36) g/dl RDW (11.5-14.5) % Plt Count (130-400) K/uL Neutrophils % (47-80) % Lymphocytes % (16-45) % Eosinophils % (0-6) % Lymphocytes (16-45) % ESR (0-20) mm/hr Eosinophil Count (0-6) % Sodium (136-145) mmol/L Potassium (3.4-4.5) mmol/L Chloride (98-107) mmol/L Carbon Dioxide (22-30) mmol/L Anion Gap (7-16) BUN (9-20) mg/dL Creatinine (0.66-1.25) mg/dL POC Glucose 154 H 142 H 163 H (70-110) mg/dL Random Glucose (70-110) mg/dL Calcium (8.5-10.1) mg/dL Magnesium (1.6-2.3) mg/dL Iron (49-181) ug/dL TIBC (261-462) ug/dL % Saturation (20-50) % AST (10.0-50.0) U/L C-Reactive Protein (0.0-0.9) mg/dL 07/01/17 07/01/17 07/01/17 Range/Units 07:59 11:48 17:18 RBC (4.40-5.70) M/uL Hgb (14.0-18.0) gm/dl Hct (42.0-52.0) % MCHC (32-36) g/dl RDW (11.5-14.5) % Plt Count (130-400) K/uL Neutrophils % (47-80) % Lymphocytes % (16-45) % Eosinophils % (0-6) % Lymphocytes (16-45) % ESR (0-20) mm/hr Eosinophil Count (0-6) % Sodium (136-145) mmol/L Potassium (3.4-4.5) mmol/L Chloride (98-107) mmol/L Carbon Dioxide (22-30) mmol/L Anion Gap (7-16) BUN (9-20) mg/dL Creatinine (0.66-1.25) mg/dL POC Glucose 118 H 141 H 130 H (70-110) mg/dL Random Glucose (70-110) mg/dL Calcium (8.5-10.1) mg/dL Magnesium (1.6-2.3) mg/dL Iron (49-181) ug/dL TIBC (261-462) ug/dL % Saturation (20-50) % AST (10.0-50.0) U/L C-Reactive Protein (0.0-0.9) mg/dL 07/01/17 07/02/17 07/02/17 Range/Units 22:30 07:47 11:49 RBC (4.40-5.70) M/uL Hgb (14.0-18.0) gm/dl Hct (42.0-52.0) % MCHC (32-36) g/dl RDW (11.5-14.5) % Plt Count (130-400) K/uL Neutrophils % (47-80) % Lymphocytes % (16-45) % Eosinophils % (0-6) % Lymphocytes (16-45) % ESR (0-20) mm/hr Eosinophil Count (0-6) % Sodium (136-145) mmol/L Potassium (3.4-4.5) mmol/L Chloride (98-107) mmol/L Carbon Dioxide (22-30) mmol/L Anion Gap (7-16) BUN (9-20) mg/dL Creatinine (0.66-1.25) mg/dL POC Glucose 129 H 117 H 128 H (70-110) mg/dL Random Glucose (70-110) mg/dL Calcium (8.5-10.1) mg/dL Magnesium (1.6-2.3) mg/dL Iron (49-181) ug/dL TIBC (261-462) ug/dL % Saturation (20-50) % AST (10.0-50.0) U/L C-Reactive Protein (0.0-0.9) mg/dL 07/02/17 07/02/17 07/03/17 Range/Units 17:01 21:49 11:40 RBC (4.40-5.70) M/uL Hgb (14.0-18.0) gm/dl Hct (42.0-52.0) % MCHC (32-36) g/dl RDW (11.5-14.5) % Plt Count (130-400) K/uL Neutrophils % (47-80) % Lymphocytes % (16-45) % Eosinophils % (0-6) % Lymphocytes (16-45) % ESR (0-20) mm/hr Eosinophil Count (0-6) % Sodium (136-145) mmol/L Potassium (3.4-4.5) mmol/L Chloride (98-107) mmol/L Carbon Dioxide (22-30) mmol/L Anion Gap (7-16) BUN (9-20) mg/dL Creatinine (0.66-1.25) mg/dL POC Glucose 116 H 122 H 118 H (70-110) mg/dL Random Glucose (70-110) mg/dL Calcium (8.5-10.1) mg/dL Magnesium (1.6-2.3) mg/dL Iron (49-181) ug/dL TIBC (261-462) ug/dL % Saturation (20-50) % AST (10.0-50.0) U/L C-Reactive Protein (0.0-0.9) mg/dL 07/03/17 07/03/17 07/04/17 Range/Units 17:08 21:24 06:54 RBC (4.40-5.70) M/uL Hgb (14.0-18.0) gm/dl Hct (42.0-52.0) % MCHC (32-36) g/dl RDW (11.5-14.5) % Plt Count (130-400) K/uL Neutrophils % (47-80) % Lymphocytes % (16-45) % Eosinophils % (0-6) % Lymphocytes (16-45) % ESR (0-20) mm/hr Eosinophil Count (0-6) % Sodium (136-145) mmol/L Potassium (3.4-4.5) mmol/L Chloride (98-107) mmol/L Carbon Dioxide (22-30) mmol/L Anion Gap (7-16) BUN (9-20) mg/dL Creatinine (0.66-1.25) mg/dL POC Glucose 136 H 135 H 117 H (70-110) mg/dL Random Glucose (70-110) mg/dL Calcium (8.5-10.1) mg/dL Magnesium (1.6-2.3) mg/dL Iron (49-181) ug/dL TIBC (261-462) ug/dL % Saturation (20-50) % AST (10.0-50.0) U/L C-Reactive Protein (0.0-0.9) mg/dL 07/04/17 07/04/17 07/04/17 Range/Units 11:39 17:02 21:20 RBC (4.40-5.70) M/uL Hgb (14.0-18.0) gm/dl Hct (42.0-52.0) % MCHC (32-36) g/dl RDW (11.5-14.5) % Plt Count (130-400) K/uL Neutrophils % (47-80) % Lymphocytes % (16-45) % Eosinophils % (0-6) % Lymphocytes (16-45) % ESR (0-20) mm/hr Eosinophil Count (0-6) % Sodium (136-145) mmol/L Potassium (3.4-4.5) mmol/L Chloride (98-107) mmol/L Carbon Dioxide (22-30) mmol/L Anion Gap (7-16) BUN (9-20) mg/dL Creatinine (0.66-1.25) mg/dL POC Glucose 135 H 135 H 126 H (70-110) mg/dL Random Glucose (70-110) mg/dL Calcium (8.5-10.1) mg/dL Magnesium (1.6-2.3) mg/dL Iron (49-181) ug/dL TIBC (261-462) ug/dL % Saturation (20-50) % AST (10.0-50.0) U/L C-Reactive Protein (0.0-0.9) mg/dL 07/05/17 07/05/17 07/05/17 Range/Units 07:49 11:39 16:49 RBC (4.40-5.70) M/uL Hgb (14.0-18.0) gm/dl Hct (42.0-52.0) % MCHC (32-36) g/dl RDW (11.5-14.5) % Plt Count (130-400) K/uL Neutrophils % (47-80) % Lymphocytes % (16-45) % Eosinophils % (0-6) % Lymphocytes (16-45) % ESR (0-20) mm/hr Eosinophil Count (0-6) % Sodium (136-145) mmol/L Potassium (3.4-4.5) mmol/L Chloride (98-107) mmol/L Carbon Dioxide (22-30) mmol/L Anion Gap (7-16) BUN (9-20) mg/dL Creatinine (0.66-1.25) mg/dL POC Glucose 119 H 132 H 136 H (70-110) mg/dL Random Glucose (70-110) mg/dL Calcium (8.5-10.1) mg/dL Magnesium (1.6-2.3) mg/dL Iron (49-181) ug/dL TIBC (261-462) ug/dL % Saturation (20-50) % AST (10.0-50.0) U/L C-Reactive Protein (0.0-0.9) mg/dL 07/05/17 07/06/17 07/06/17 Range/Units 21:11 08:43 08:43 RBC 3.17 L (4.40-5.70) M/uL Hgb 8.7 L (14.0-18.0) gm/dl Hct 29.1 L (42.0-52.0) % MCHC 29.9 L (32-36) g/dl RDW 15.9 H (11.5-14.5) % Plt Count (130-400) K/uL Neutrophils % (47-80) % Lymphocytes % 11.8 L (16-45) % Eosinophils % 6.7 H (0-6) % Lymphocytes (16-45) % ESR (0-20) mm/hr Eosinophil Count (0-6) % Sodium (136-145) mmol/L Potassium (3.4-4.5) mmol/L Chloride 112 H (98-107) mmol/L Carbon Dioxide 17.3 L (22-30) mmol/L Anion Gap (7-16) BUN 32 H (9-20) mg/dL Creatinine 1.8 H (0.66-1.25) mg/dL POC Glucose 145 H (70-110) mg/dL Random Glucose 127 H (70-110) mg/dL Calcium (8.5-10.1) mg/dL Magnesium (1.6-2.3) mg/dL Iron 41 L (49-181) ug/dL TIBC (261-462) ug/dL % Saturation (20-50) % AST (10.0-50.0) U/L C-Reactive Protein (0.0-0.9) mg/dL 07/06/17 07/06/17 07/06/17 Range/Units 12:03 17:12 21:36 RBC (4.40-5.70) M/uL Hgb (14.0-18.0) gm/dl Hct (42.0-52.0) % MCHC (32-36) g/dl RDW (11.5-14.5) % Plt Count (130-400) K/uL Neutrophils % (47-80) % Lymphocytes % (16-45) % Eosinophils % (0-6) % Lymphocytes (16-45) % ESR (0-20) mm/hr Eosinophil Count (0-6) % Sodium (136-145) mmol/L Potassium (3.4-4.5) mmol/L Chloride (98-107) mmol/L Carbon Dioxide (22-30) mmol/L Anion Gap (7-16) BUN (9-20) mg/dL Creatinine (0.66-1.25) mg/dL POC Glucose 145 H 161 H 130 H (70-110) mg/dL Random Glucose (70-110) mg/dL Calcium (8.5-10.1) mg/dL Magnesium (1.6-2.3) mg/dL Iron (49-181) ug/dL TIBC (261-462) ug/dL % Saturation (20-50) % AST (10.0-50.0) U/L C-Reactive Protein (0.0-0.9) mg/dL 07/07/17 07/07/17 07/08/17 Range/Units 07:15 22:10 11:45 RBC (4.40-5.70) M/uL Hgb (14.0-18.0) gm/dl Hct (42.0-52.0) % MCHC (32-36) g/dl RDW (11.5-14.5) % Plt Count (130-400) K/uL Neutrophils % (47-80) % Lymphocytes % (16-45) % Eosinophils % (0-6) % Lymphocytes (16-45) % ESR (0-20) mm/hr Eosinophil Count (0-6) % Sodium (136-145) mmol/L Potassium (3.4-4.5) mmol/L Chloride (98-107) mmol/L Carbon Dioxide (22-30) mmol/L Anion Gap (7-16) BUN (9-20) mg/dL Creatinine (0.66-1.25) mg/dL POC Glucose 113 H 164 H 123 H (70-110) mg/dL Random Glucose (70-110) mg/dL Calcium (8.5-10.1) mg/dL Magnesium (1.6-2.3) mg/dL Iron (49-181) ug/dL TIBC (261-462) ug/dL % Saturation (20-50) % AST (10.0-50.0) U/L C-Reactive Protein (0.0-0.9) mg/dL 07/08/17 07/08/17 07/09/17 Range/Units 17: 22:00 11:30 RBC (4.40-5.70) M/uL Hgb (14.0-18.0) gm/dl Hct (42.0-52.0) % MCHC (32-36) g/dl RDW (11.5-14.5) % Plt Count (130-400) K/uL Neutrophils % (47-80) % Lymphocytes % (16-45) % Eosinophils % (0-6) % Lymphocytes (16-45) % ESR (0-20) mm/hr Eosinophil Count (0-6) % Sodium (136-145) mmol/L Potassium (3.4-4.5) mmol/L Chloride (98-107) mmol/L Carbon Dioxide (22-30) mmol/L Anion Gap (7-16) BUN (9-20) mg/dL Creatinine (0.66-1.25) mg/dL POC Glucose 128 H 132 H 136 H (70-110) mg/dL Random Glucose (70-110) mg/dL Calcium (8.5-10.1) mg/dL Magnesium (1.6-2.3) mg/dL Iron (49-181) ug/dL TIBC (261-462) ug/dL % Saturation (20-50) % AST (10.0-50.0) U/L C-Reactive Protein (0.0-0.9) mg/dL 07/09/17 07/09/17 07/10/17 Range/Units 17: 22:00 11:30 RBC (4.40-5.70) M/uL Hgb (14.0-18.0) gm/dl Hct (42.0-52.0) % MCHC (32-36) g/dl RDW (11.5-14.5) % Plt Count (130-400) K/uL Neutrophils % (47-80) % Lymphocytes % (16-45) % Eosinophils % (0-6) % Lymphocytes (16-45) % ESR (0-20) mm/hr Eosinophil Count (0-6) % Sodium (136-145) mmol/L Potassium (3.4-4.5) mmol/L Chloride (98-107) mmol/L Carbon Dioxide (22-30) mmol/L Anion Gap (7-16) BUN (9-20) mg/dL Creatinine (0.66-1.25) mg/dL POC Glucose 129 H 146 H 128 H (70-110) mg/dL Random Glucose (70-110) mg/dL Calcium (8.5-10.1) mg/dL Magnesium (1.6-2.3) mg/dL Iron (49-181) ug/dL TIBC (261-462) ug/dL % Saturation (20-50) % AST (10.0-50.0) U/L C-Reactive Protein (0.0-0.9) mg/dL 07/10/17 07/10/17 07/11/17 Range/Units 17:00 22:00 06:56 RBC (4.40-5.70) M/uL Hgb (14.0-18.0) gm/dl Hct (42.0-52.0) % MCHC (32-36) g/dl RDW (11.5-14.5) % Plt Count (130-400) K/uL Neutrophils % (47-80) % Lymphocytes % (16-45) % Eosinophils % (0-6) % Lymphocytes (16-45) % ESR (0-20) mm/hr Eosinophil Count (0-6) % Sodium (136-145) mmol/L Potassium (3.4-4.5) mmol/L Chloride (98-107) mmol/L Carbon Dioxide (22-30) mmol/L Anion Gap (7-16) BUN (9-20) mg/dL Creatinine (0.66-1.25) mg/dL POC Glucose 155 H 123 H 112 H (70-110) mg/dL Random Glucose (70-110) mg/dL Calcium (8.5-10.1) mg/dL Magnesium (1.6-2.3) mg/dL Iron (49-181) ug/dL TIBC (261-462) ug/dL % Saturation (20-50) % AST (10.0-50.0) U/L C-Reactive Protein (0.0-0.9) mg/dL 07/11/17 07/11/17 07/11/17 Range/Units 11:30 16:56 22:00 RBC (4.40-5.70) M/uL Hgb (14.0-18.0) gm/dl Hct (42.0-52.0) % MCHC (32-36) g/dl RDW (11.5-14.5) % Plt Count (130-400) K/uL Neutrophils % (47-80) % Lymphocytes % (16-45) % Eosinophils % (0-6) % Lymphocytes (16-45) % ESR (0-20) mm/hr Eosinophil Count (0-6) % Sodium (136-145) mmol/L Potassium (3.4-4.5) mmol/L Chloride (98-107) mmol/L Carbon Dioxide (22-30) mmol/L Anion Gap (7-16) BUN (9-20) mg/dL Creatinine (0.66-1.25) mg/dL POC Glucose 148 H 141 H 122 H (70-110) mg/dL Random Glucose (70-110) mg/dL Calcium (8.5-10.1) mg/dL Magnesium (1.6-2.3) mg/dL Iron (49-181) ug/dL TIBC (261-462) ug/dL % Saturation (20-50) % AST (10.0-50.0) U/L C-Reactive Protein (0.0-0.9) mg/dL 07/12/17 07/12/17 07/12/17 Range/Units 07:16 11:30 17:30 RBC (4.40-5.70) M/uL Hgb (14.0-18.0) gm/dl Hct (42.0-52.0) % MCHC (32-36) g/dl RDW (11.5-14.5) % Plt Count (130-400) K/uL Neutrophils % (47-80) % Lymphocytes % (16-45) % Eosinophils % (0-6) % Lymphocytes (16-45) % ESR (0-20) mm/hr Eosinophil Count (0-6) % Sodium (136-145) mmol/L Potassium (3.4-4.5) mmol/L Chloride (98-107) mmol/L Carbon Dioxide (22-30) mmol/L Anion Gap (7-16) BUN (9-20) mg/dL Creatinine (0.66-1.25) mg/dL POC Glucose 128 H 135 H 137 H (70-110) mg/dL Random Glucose (70-110) mg/dL Calcium (8.5-10.1) mg/dL Magnesium (1.6-2.3) mg/dL Iron (49-181) ug/dL TIBC (261-462) ug/dL % Saturation (20-50) % AST (10.0-50.0) U/L C-Reactive Protein (0.0-0.9) mg/dL 07/12/17 07/13/17 07/13/17 Range/Units 22:00 07:27 11:30 RBC (4.40-5.70) M/uL Hgb (14.0-18.0) gm/dl Hct (42.0-52.0) % MCHC (32-36) g/dl RDW (11.5-14.5) % Plt Count (130-400) K/uL Neutrophils % (47-80) % Lymphocytes % (16-45) % Eosinophils % (0-6) % Lymphocytes (16-45) % ESR (0-20) mm/hr Eosinophil Count (0-6) % Sodium (136-145) mmol/L Potassium (3.4-4.5) mmol/L Chloride (98-107) mmol/L Carbon Dioxide (22-30) mmol/L Anion Gap (7-16) BUN (9-20) mg/dL Creatinine (0.66-1.25) mg/dL POC Glucose 145 H 122 H 146 H (70-110) mg/dL Random Glucose (70-110) mg/dL Calcium (8.5-10.1) mg/dL Magnesium (1.6-2.3) mg/dL Iron (49-181) ug/dL TIBC (261-462) ug/dL % Saturation (20-50) % AST (10.0-50.0) U/L C-Reactive Protein (0.0-0.9) mg/dL 07/13/17 07/13/17 07/14/17 Range/Units 17:00 22:00 06:40 RBC (4.40-5.70) M/uL Hgb (14.0-18.0) gm/dl Hct (42.0-52.0) % MCHC (32-36) g/dl RDW (11.5-14.5) % Plt Count (130-400) K/uL Neutrophils % (47-80) % Lymphocytes % (16-45) % Eosinophils % (0-6) % Lymphocytes (16-45) % ESR (0-20) mm/hr Eosinophil Count (0-6) % Sodium (136-145) mmol/L Potassium (3.4-4.5) mmol/L Chloride (98-107) mmol/L Carbon Dioxide (22-30) mmol/L Anion Gap (7-16) BUN (9-20) mg/dL Creatinine (0.66-1.25) mg/dL POC Glucose 158 H 138 H 119 H (70-110) mg/dL Random Glucose (70-110) mg/dL Calcium (8.5-10.1) mg/dL Magnesium (1.6-2.3) mg/dL Iron (49-181) ug/dL TIBC (261-462) ug/dL % Saturation (20-50) % AST (10.0-50.0) U/L C-Reactive Protein (0.0-0.9) mg/dL 07/14/17 07/14/17 07/14/17 Range/Units 11:55 17:10 22:13 RBC (4.40-5.70) M/uL Hgb (14.0-18.0) gm/dl Hct (42.0-52.0) % MCHC (32-36) g/dl RDW (11.5-14.5) % Plt Count (130-400) K/uL Neutrophils % (47-80) % Lymphocytes % (16-45) % Eosinophils % (0-6) % Lymphocytes (16-45) % ESR (0-20) mm/hr Eosinophil Count (0-6) % Sodium (136-145) mmol/L Potassium (3.4-4.5) mmol/L Chloride (98-107) mmol/L Carbon Dioxide (22-30) mmol/L Anion Gap (7-16) BUN (9-20) mg/dL Creatinine (0.66-1.25) mg/dL POC Glucose 134 H 139 H 140 H (70-110) mg/dL Random Glucose (70-110) mg/dL Calcium (8.5-10.1) mg/dL Magnesium (1.6-2.3) mg/dL Iron (49-181) ug/dL TIBC (261-462) ug/dL % Saturation (20-50) % AST (10.0-50.0) U/L C-Reactive Protein (0.0-0.9) mg/dL 07/15/17 07/15/17 07/15/17 Range/Units 11:30 16:39 16:39 RBC (4.40-5.70) M/uL Hgb (14.0-18.0) gm/dl Hct (42.0-52.0) % MCHC (32-36) g/dl RDW (11.5-14.5) % Plt Count (130-400) K/uL Neutrophils % (47-80) % Lymphocytes % (16-45) % Eosinophils % (0-6) % Lymphocytes (16-45) % ESR 133 H (0-20) mm/hr Eosinophil Count (0-6) % Sodium (136-145) mmol/L Potassium (3.4-4.5) mmol/L Chloride (98-107) mmol/L Carbon Dioxide (22-30) mmol/L Anion Gap (7-16) BUN (9-20) mg/dL Creatinine (0.66-1.25) mg/dL POC Glucose 146 H (70-110) mg/dL Random Glucose (70-110) mg/dL Calcium (8.5-10.1) mg/dL Magnesium (1.6-2.3) mg/dL Iron (49-181) ug/dL TIBC (261-462) ug/dL % Saturation (20-50) % AST (10.0-50.0) U/L C-Reactive Protein 3.7 H (0.0-0.9) mg/dL 07/15/17 07/15/17 07/16/17 Range/Units 17:16 21:15 09:55 RBC (4.40-5.70) M/uL Hgb (14.0-18.0) gm/dl Hct (42.0-52.0) % MCHC (32-36) g/dl RDW (11.5-14.5) % Plt Count (130-400) K/uL Neutrophils % (47-80) % Lymphocytes % (16-45) % Eosinophils % (0-6) % Lymphocytes (16-45) % ESR (0-20) mm/hr Eosinophil Count (0-6) % Sodium (136-145) mmol/L Potassium (3.4-4.5) mmol/L Chloride (98-107) mmol/L Carbon Dioxide (22-30) mmol/L Anion Gap (7-16) BUN (9-20) mg/dL Creatinine (0.66-1.25) mg/dL POC Glucose 115 H 119 H 123 H (70-110) mg/dL Random Glucose (70-110) mg/dL Calcium (8.5-10.1) mg/dL Magnesium (1.6-2.3) mg/dL Iron (49-181) ug/dL TIBC (261-462) ug/dL % Saturation (20-50) % AST (10.0-50.0) U/L C-Reactive Protein (0.0-0.9) mg/dL 07/16/17 07/16/17 07/16/17 Range/Units 11:51 17:53 21:22 RBC (4.40-5.70) M/uL Hgb (14.0-18.0) gm/dl Hct (42.0-52.0) % MCHC (32-36) g/dl RDW (11.5-14.5) % Plt Count (130-400) K/uL Neutrophils % (47-80) % Lymphocytes % (16-45) % Eosinophils % (0-6) % Lymphocytes (16-45) % ESR (0-20) mm/hr Eosinophil Count (0-6) % Sodium (136-145) mmol/L Potassium (3.4-4.5) mmol/L Chloride (98-107) mmol/L Carbon Dioxide (22-30) mmol/L Anion Gap (7-16) BUN (9-20) mg/dL Creatinine (0.66-1.25) mg/dL POC Glucose 130 H 123 H 145 H (70-110) mg/dL Random Glucose (70-110) mg/dL Calcium (8.5-10.1) mg/dL Magnesium (1.6-2.3) mg/dL Iron (49-181) ug/dL TIBC (261-462) ug/dL % Saturation (20-50) % AST (10.0-50.0) U/L C-Reactive Protein (0.0-0.9) mg/dL 07/17/17 07/17/17 07/17/17 Range/Units 08:00 17:30 21:27 RBC (4.40-5.70) M/uL Hgb (14.0-18.0) gm/dl Hct (42.0-52.0) % MCHC (32-36) g/dl RDW (11.5-14.5) % Plt Count (130-400) K/uL Neutrophils % (47-80) % Lymphocytes % (16-45) % Eosinophils % (0-6) % Lymphocytes (16-45) % ESR (0-20) mm/hr Eosinophil Count (0-6) % Sodium (136-145) mmol/L Potassium (3.4-4.5) mmol/L Chloride (98-107) mmol/L Carbon Dioxide (22-30) mmol/L Anion Gap (7-16) BUN (9-20) mg/dL Creatinine (0.66-1.25) mg/dL POC Glucose 116 H 117 H 137 H (70-110) mg/dL Random Glucose (70-110) mg/dL Calcium (8.5-10.1) mg/dL Magnesium (1.6-2.3) mg/dL Iron (49-181) ug/dL TIBC (261-462) ug/dL % Saturation (20-50) % AST (10.0-50.0) U/L C-Reactive Protein (0.0-0.9) mg/dL 07/18/17 07/18/17 07/18/17 Range/Units 12:06 17:15 21:21 RBC (4.40-5.70) M/uL Hgb (14.0-18.0) gm/dl Hct (42.0-52.0) % MCHC (32-36) g/dl RDW (11.5-14.5) % Plt Count (130-400) K/uL Neutrophils % (47-80) % Lymphocytes % (16-45) % Eosinophils % (0-6) % Lymphocytes (16-45) % ESR (0-20) mm/hr Eosinophil Count (0-6) % Sodium (136-145) mmol/L Potassium (3.4-4.5) mmol/L Chloride (98-107) mmol/L Carbon Dioxide (22-30) mmol/L Anion Gap (7-16) BUN (9-20) mg/dL Creatinine (0.66-1.25) mg/dL POC Glucose 130 H 149 H 128 H (70-110) mg/dL Random Glucose (70-110) mg/dL Calcium (8.5-10.1) mg/dL Magnesium (1.6-2.3) mg/dL Iron (49-181) ug/dL TIBC (261-462) ug/dL % Saturation (20-50) % AST (10.0-50.0) U/L C-Reactive Protein (0.0-0.9) mg/dL 07/19/17 07/19/17 07/19/17 Range/Units 07:50 11:30 17:00 RBC (4.40-5.70) M/uL Hgb (14.0-18.0) gm/dl Hct (42.0-52.0) % MCHC (32-36) g/dl RDW (11.5-14.5) % Plt Count (130-400) K/uL Neutrophils % (47-80) % Lymphocytes % (16-45) % Eosinophils % (0-6) % Lymphocytes (16-45) % ESR (0-20) mm/hr Eosinophil Count (0-6) % Sodium (136-145) mmol/L Potassium (3.4-4.5) mmol/L Chloride (98-107) mmol/L Carbon Dioxide (22-30) mmol/L Anion Gap (7-16) BUN (9-20) mg/dL Creatinine (0.66-1.25) mg/dL POC Glucose 115 H 136 H 142 H (70-110) mg/dL Random Glucose (70-110) mg/dL Calcium (8.5-10.1) mg/dL Magnesium (1.6-2.3) mg/dL Iron (49-181) ug/dL TIBC (261-462) ug/dL % Saturation (20-50) % AST (10.0-50.0) U/L C-Reactive Protein (0.0-0.9) mg/dL 07/19/17 07/20/17 07/20/17 Range/Units 21:23 11:42 17:05 RBC (4.40-5.70) M/uL Hgb (14.0-18.0) gm/dl Hct (42.0-52.0) % MCHC (32-36) g/dl RDW (11.5-14.5) % Plt Count (130-400) K/uL Neutrophils % (47-80) % Lymphocytes % (16-45) % Eosinophils % (0-6) % Lymphocytes (16-45) % ESR (0-20) mm/hr Eosinophil Count (0-6) % Sodium (136-145) mmol/L Potassium (3.4-4.5) mmol/L Chloride (98-107) mmol/L Carbon Dioxide (22-30) mmol/L Anion Gap (7-16) BUN (9-20) mg/dL Creatinine (0.66-1.25) mg/dL POC Glucose 130 H 138 H 126 H (70-110) mg/dL Random Glucose (70-110) mg/dL Calcium (8.5-10.1) mg/dL Magnesium (1.6-2.3) mg/dL Iron (49-181) ug/dL TIBC (261-462) ug/dL % Saturation (20-50) % AST (10.0-50.0) U/L C-Reactive Protein (0.0-0.9) mg/dL 07/20/17 07/21/17 07/21/17 Range/Units 21:20 17:00 23:12 RBC (4.40-5.70) M/uL Hgb (14.0-18.0) gm/dl Hct (42.0-52.0) % MCHC (32-36) g/dl RDW (11.5-14.5) % Plt Count (130-400) K/uL Neutrophils % (47-80) % Lymphocytes % (16-45) % Eosinophils % (0-6) % Lymphocytes (16-45) % ESR (0-20) mm/hr Eosinophil Count (0-6) % Sodium (136-145) mmol/L Potassium (3.4-4.5) mmol/L Chloride (98-107) mmol/L Carbon Dioxide (22-30) mmol/L Anion Gap (7-16) BUN (9-20) mg/dL Creatinine (0.66-1.25) mg/dL POC Glucose 112 H 111 H 137 H (70-110) mg/dL Random Glucose (70-110) mg/dL Calcium (8.5-10.1) mg/dL Magnesium (1.6-2.3) mg/dL Iron (49-181) ug/dL TIBC (261-462) ug/dL % Saturation (20-50) % AST (10.0-50.0) U/L C-Reactive Protein (0.0-0.9) mg/dL 07/22/17 07/23/17 07/23/17 Range/Units 11:30 11:30 22:00 RBC (4.40-5.70) M/uL Hgb (14.0-18.0) gm/dl Hct (42.0-52.0) % MCHC (32-36) g/dl RDW (11.5-14.5) % Plt Count (130-400) K/uL Neutrophils % (47-80) % Lymphocytes % (16-45) % Eosinophils % (0-6) % Lymphocytes (16-45) % ESR (0-20) mm/hr Eosinophil Count (0-6) % Sodium (136-145) mmol/L Potassium (3.4-4.5) mmol/L Chloride (98-107) mmol/L Carbon Dioxide (22-30) mmol/L Anion Gap (7-16) BUN (9-20) mg/dL Creatinine (0.66-1.25) mg/dL POC Glucose 114 H 140 H 122 H (70-110) mg/dL Random Glucose (70-110) mg/dL Calcium (8.5-10.1) mg/dL Magnesium (1.6-2.3) mg/dL Iron (49-181) ug/dL TIBC (261-462) ug/dL % Saturation (20-50) % AST (10.0-50.0) U/L C-Reactive Protein (0.0-0.9) mg/dL 07/24/17 07/24/17 07/24/17 Range/Units 11:45 17:25 23:00 RBC (4.40-5.70) M/uL Hgb (14.0-18.0) gm/dl Hct (42.0-52.0) % MCHC (32-36) g/dl RDW (11.5-14.5) % Plt Count (130-400) K/uL Neutrophils % (47-80) % Lymphocytes % (16-45) % Eosinophils % (0-6) % Lymphocytes (16-45) % ESR (0-20) mm/hr Eosinophil Count (0-6) % Sodium (136-145) mmol/L Potassium (3.4-4.5) mmol/L Chloride (98-107) mmol/L Carbon Dioxide (22-30) mmol/L Anion Gap (7-16) BUN (9-20) mg/dL Creatinine (0.66-1.25) mg/dL POC Glucose 126 H 141 H 113 H (70-110) mg/dL Random Glucose (70-110) mg/dL Calcium (8.5-10.1) mg/dL Magnesium (1.6-2.3) mg/dL Iron (49-181) ug/dL TIBC (261-462) ug/dL % Saturation (20-50) % AST (10.0-50.0) U/L C-Reactive Protein (0.0-0.9) mg/dL 07/25/17 07/25/17 07/26/17 Range/Units 12:06 17:00 11:45 RBC (4.40-5.70) M/uL Hgb (14.0-18.0) gm/dl Hct (42.0-52.0) % MCHC (32-36) g/dl RDW (11.5-14.5) % Plt Count (130-400) K/uL Neutrophils % (47-80) % Lymphocytes % (16-45) % Eosinophils % (0-6) % Lymphocytes (16-45) % ESR (0-20) mm/hr Eosinophil Count (0-6) % Sodium (136-145) mmol/L Potassium (3.4-4.5) mmol/L Chloride (98-107) mmol/L Carbon Dioxide (22-30) mmol/L Anion Gap (7-16) BUN (9-20) mg/dL Creatinine (0.66-1.25) mg/dL POC Glucose 117 H 119 H 121 H (70-110) mg/dL Random Glucose (70-110) mg/dL Calcium (8.5-10.1) mg/dL Magnesium (1.6-2.3) mg/dL Iron (49-181) ug/dL TIBC (261-462) ug/dL % Saturation (20-50) % AST (10.0-50.0) U/L C-Reactive Protein (0.0-0.9) mg/dL 07/26/17 07/26/17 07/27/17 Range/Units 17:20 22:00 07:52 RBC (4.40-5.70) M/uL Hgb (14.0-18.0) gm/dl Hct (42.0-52.0) % MCHC (32-36) g/dl RDW (11.5-14.5) % Plt Count (130-400) K/uL Neutrophils % (47-80) % Lymphocytes % (16-45) % Eosinophils % (0-6) % Lymphocytes (16-45) % ESR (0-20) mm/hr Eosinophil Count (0-6) % Sodium (136-145) mmol/L Potassium (3.4-4.5) mmol/L Chloride (98-107) mmol/L Carbon Dioxide (22-30) mmol/L Anion Gap (7-16) BUN (9-20) mg/dL Creatinine (0.66-1.25) mg/dL POC Glucose 120 H 120 H 117 H (70-110) mg/dL Random Glucose (70-110) mg/dL Calcium (8.5-10.1) mg/dL Magnesium (1.6-2.3) mg/dL Iron (49-181) ug/dL TIBC (261-462) ug/dL % Saturation (20-50) % AST (10.0-50.0) U/L C-Reactive Protein (0.0-0.9) mg/dL 07/27/17 07/27/17 07/27/17 Range/Units 11:30 16:49 22:00 RBC (4.40-5.70) M/uL Hgb (14.0-18.0) gm/dl Hct (42.0-52.0) % MCHC (32-36) g/dl RDW (11.5-14.5) % Plt Count (130-400) K/uL Neutrophils % (47-80) % Lymphocytes % (16-45) % Eosinophils % (0-6) % Lymphocytes (16-45) % ESR (0-20) mm/hr Eosinophil Count (0-6) % Sodium (136-145) mmol/L Potassium (3.4-4.5) mmol/L Chloride (98-107) mmol/L Carbon Dioxide (22-30) mmol/L Anion Gap (7-16) BUN (9-20) mg/dL Creatinine (0.66-1.25) mg/dL POC Glucose 134 H 127 H 118 H (70-110) mg/dL Random Glucose (70-110) mg/dL Calcium (8.5-10.1) mg/dL Magnesium (1.6-2.3) mg/dL Iron (49-181) ug/dL TIBC (261-462) ug/dL % Saturation (20-50) % AST (10.0-50.0) U/L C-Reactive Protein (0.0-0.9) mg/dL 07/28/17 07/29/17 07/29/17 Range/Units 11:30 00:22 14:40 RBC (4.40-5.70) M/uL Hgb (14.0-18.0) gm/dl Hct (42.0-52.0) % MCHC (32-36) g/dl RDW (11.5-14.5) % Plt Count (130-400) K/uL Neutrophils % (47-80) % Lymphocytes % (16-45) % Eosinophils % (0-6) % Lymphocytes (16-45) % ESR (0-20) mm/hr Eosinophil Count (0-6) % Sodium (136-145) mmol/L Potassium (3.4-4.5) mmol/L Chloride (98-107) mmol/L Carbon Dioxide (22-30) mmol/L Anion Gap (7-16) BUN (9-20) mg/dL Creatinine (0.66-1.25) mg/dL POC Glucose 135 H 138 H 141 H (70-110) mg/dL Random Glucose (70-110) mg/dL Calcium (8.5-10.1) mg/dL Magnesium (1.6-2.3) mg/dL Iron (49-181) ug/dL TIBC (261-462) ug/dL % Saturation (20-50) % AST (10.0-50.0) U/L C-Reactive Protein (0.0-0.9) mg/dL 07/29/17 07/30/17 07/30/17 Range/Units 17:28 11:30 17:42 RBC (4.40-5.70) M/uL Hgb (14.0-18.0) gm/dl Hct (42.0-52.0) % MCHC (32-36) g/dl RDW (11.5-14.5) % Plt Count (130-400) K/uL Neutrophils % (47-80) % Lymphocytes % (16-45) % Eosinophils % (0-6) % Lymphocytes (16-45) % ESR (0-20) mm/hr Eosinophil Count (0-6) % Sodium (136-145) mmol/L Potassium (3.4-4.5) mmol/L Chloride (98-107) mmol/L Carbon Dioxide (22-30) mmol/L Anion Gap (7-16) BUN (9-20) mg/dL Creatinine (0.66-1.25) mg/dL POC Glucose 126 H 124 H 124 H (70-110) mg/dL Random Glucose (70-110) mg/dL Calcium (8.5-10.1) mg/dL Magnesium (1.6-2.3) mg/dL Iron (49-181) ug/dL TIBC (261-462) ug/dL % Saturation (20-50) % AST (10.0-50.0) U/L C-Reactive Protein (0.0-0.9) mg/dL 07/30/17 07/31/17 07/31/17 Range/Units 21:29 11:44 17:09 RBC (4.40-5.70) M/uL Hgb (14.0-18.0) gm/dl Hct (42.0-52.0) % MCHC (32-36) g/dl RDW (11.5-14.5) % Plt Count (130-400) K/uL Neutrophils % (47-80) % Lymphocytes % (16-45) % Eosinophils % (0-6) % Lymphocytes (16-45) % ESR (0-20) mm/hr Eosinophil Count (0-6) % Sodium (136-145) mmol/L Potassium (3.4-4.5) mmol/L Chloride (98-107) mmol/L Carbon Dioxide (22-30) mmol/L Anion Gap (7-16) BUN (9-20) mg/dL Creatinine (0.66-1.25) mg/dL POC Glucose 116 H 123 H 112 H (70-110) mg/dL Random Glucose (70-110) mg/dL Calcium (8.5-10.1) mg/dL Magnesium (1.6-2.3) mg/dL Iron (49-181) ug/dL TIBC (261-462) ug/dL % Saturation (20-50) % AST (10.0-50.0) U/L C-Reactive Protein (0.0-0.9) mg/dL 07/31/17 08/01/17 08/02/17 Range/Units 21:15 21:09 11:30 RBC (4.40-5.70) M/uL Hgb (14.0-18.0) gm/dl Hct (42.0-52.0) % MCHC (32-36) g/dl RDW (11.5-14.5) % Plt Count (130-400) K/uL Neutrophils % (47-80) % Lymphocytes % (16-45) % Eosinophils % (0-6) % Lymphocytes (16-45) % ESR (0-20) mm/hr Eosinophil Count (0-6) % Sodium (136-145) mmol/L Potassium (3.4-4.5) mmol/L Chloride (98-107) mmol/L Carbon Dioxide (22-30) mmol/L Anion Gap (7-16) BUN (9-20) mg/dL Creatinine (0.66-1.25) mg/dL POC Glucose 114 H 118 H 122 H (70-110) mg/dL Random Glucose (70-110) mg/dL Calcium (8.5-10.1) mg/dL Magnesium (1.6-2.3) mg/dL Iron (49-181) ug/dL TIBC (261-462) ug/dL % Saturation (20-50) % AST (10.0-50.0) U/L C-Reactive Protein (0.0-0.9) mg/dL 08/02/17 08/02/17 08/02/17 Range/Units 13:03 13:03 13:03 RBC 3.05 L (4.40-5.70) M/uL Hgb 8.4 L (14.0-18.0) gm/dl Hct 26.9 L (42.0-52.0) % MCHC 31.2 L (32-36) g/dl RDW 16.8 H (11.5-14.5) % Plt Count (130-400) K/uL Neutrophils % (47-80) % Lymphocytes % 8.0 L (16-45) % Eosinophils % (0-6) % Lymphocytes (16-45) % ESR (0-20) mm/hr Eosinophil Count (0-6) % Sodium 131 L (136-145) mmol/L Potassium 5.6 H (3.4-4.5) mmol/L Chloride (98-107) mmol/L Carbon Dioxide 13.0 L (22-30) mmol/L Anion Gap 19.0 H (7-16) BUN 134.1 H (9-20) mg/dL Creatinine 3.6 H (0.66-1.25) mg/dL POC Glucose (70-110) mg/dL Random Glucose (70-110) mg/dL Calcium 8.6 L (8.5-10.1) mg/dL Magnesium (1.6-2.3) mg/dL Iron 32 L (49-181) ug/dL TIBC (261-462) ug/dL % Saturation (20-50) % AST 9 L (10.0-50.0) U/L C-Reactive Protein (0.0-0.9) mg/dL 08/02/17 08/02/17 08/03/17 Range/Units 16:54 21:30 08:47 RBC (4.40-5.70) M/uL Hgb (14.0-18.0) gm/dl Hct (42.0-52.0) % MCHC (32-36) g/dl RDW (11.5-14.5) % Plt Count (130-400) K/uL Neutrophils % (47-80) % Lymphocytes % (16-45) % Eosinophils % (0-6) % Lymphocytes (16-45) % ESR (0-20) mm/hr Eosinophil Count (0-6) % Sodium (136-145) mmol/L Potassium 4.9 H (3.4-4.5) mmol/L Chloride (98-107) mmol/L Carbon Dioxide (22-30) mmol/L Anion Gap (7-16) BUN (9-20) mg/dL Creatinine (0.66-1.25) mg/dL POC Glucose 118 H 152 H (70-110) mg/dL Random Glucose (70-110) mg/dL Calcium (8.5-10.1) mg/dL Magnesium (1.6-2.3) mg/dL Iron (49-181) ug/dL TIBC (261-462) ug/dL % Saturation (20-50) % AST (10.0-50.0) U/L C-Reactive Protein (0.0-0.9) mg/dL Discharge Medications - Discharge Medications Prescriptions: Metronidazole [Flagyl] 500 mg PO Q8HR #60 tablet Cefazolin [Kefzol] 500 mg IV Q12HR #40 vial Ascorbic Acid [Vitamin C] 1,000 mg PO BID #60 tab Ferrous Sulfate [Iron] 325 mg PO BID #30 tab Home Medications: Ambulatory Orders Atorvastatin Calcium 10 mg PO DAILY 03/15/16 [Last Taken 06/06/17] Nystatin 1 gm TOP BID #30 cream 04/09/16 [Last Taken 06/06/17] Acetaminophen [Tylenol 500Mg Tab] 1,000 mg PO Q6H PRN 08/03/17 [Last Taken Unknown] Ascorbic Acid [Vitamin C] 1,000 mg PO BID #60 tab 08/03/17 [Last Taken Unknown] Cefazolin [Kefzol] 500 mg IV Q12HR #40 vial 08/03/17 [Last Taken Unknown] Collagenase Clostridium Hist. [Santyl] 1 gm TOP DAILY tube 08/03/17 [Last Taken Unknown] Ferrous Sulfate [Iron] 325 mg PO BID #30 tab 08/03/17 [Last Taken Unknown] Insulin Aspart [Novolog Flexpen] 1 unit SQ QIDINS ml 08/03/17 [Last Taken Unknown] Insulin Detemir [Levemir Flextouch] 5 unit SQ BIDWM ml 08/03/17 [Last Taken Unknown] Metronidazole [Flagyl] 500 mg PO Q8HR #60 tablet 08/03/17 [Last Taken Unknown] Nystatin 15 gm TOP ASDIR PRN tube 08/03/17 [Last Taken Unknown] Discharge Plan - Discharge Instructions Activity at Discharge: Increase Activity as Tolerated Diet at Discharge: Diabetic Diet Additional Instructions: please give lab orders for a basic metabolic profile outpatient on 08/09/2017. Dr. Garcia to schedule nephrology appointment as an outpatient. Continue IV Cefazolin twice a day reduced schedule because of renal failure stop Gemfibrozil because of renal status follow up with Dr. Garcia on jul
--- NOTE | 2017-08-03 13:36 | Rehab Discharge Summary ---
Patient Information - Patient Information Diagnosis: diabetic foot ulcer with osteomyelitis Ordered Treatment: OT Evaluate and Treat Surgery: No History: Detail (Pt. reports history of above the knee amputation, pressure sores, sensory impairment RLE. PICC line inserted.) Past Med/Lilian Hx Detail: Detail (Above the knee amputation. Please see additional intake forms. Pt. reports that he is "legally blind".) Past Medical/Surgical Hx: PAST MEDICAL/SURGICAL HISTORY Past Surgical History Left Above knee amputation 2006 bowel resection 2016 PMH - Respiratory Hx Respiratory Disorders No PMH - Cardiovascular Hx Cardiovascular Disorders Yes Hx Hypertension Yes Hx Vascular Disease Yes: left AKA amputation 2009 from DM Comment: high cholesterol PMH - Neuro Hx Neurological Disorders No Hx Seizures No Hx Weakness Yes: deconditioned from hospitaliztion PMH - GI Hx Gastrointestinal Disorders No PMH - Hx Genitourinary Disorders No PMH - Endocrine Hx Endocrine Disorders Yes Hx 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 He has an elevated toilet seat with grab bars, a walk in shower with a shower chair and grab bars as well as a wheelchair and front wheeled walker. He is Ind with self cares with the exception of transferring into the shower, his assists him. He and spouse share home mgmt, meal prep and laundry. Pt uses wheelchair for all mobility except transferring to toilet at which time he uses the walker.) Precautions: [place], Fall, Other (Legally blind) Objective Data - Pain Pain Present: No - Mental Status Patient Orientation: Oriented x3 - Visual Perception Deficit (legally blind) - ROM Not within normal limits (Toño shoulders and elbows WNL AROM, toño wrists and hands cont. with decreased ROM due to arthritis although hand motion is significantly improved.) - Strength/Tone Not within normal limits (Toño shoulders and elbows 5/5, toño hand weakness continues although improving with exercises and is functional for self cares.) - Coordination Deficit (Decreased coordination toño hands due to arthritis, improved from evaluation and coordination is functional for self cares.) - Bed Mobility Independent - Transfers Independent (Ind with transfers to/from wheelchair.) - Balance Balance Sitting: Good Balance Standing: Fair - Sensation Intact - ADL's/IADL's Detail (Pt able to complete showering in sitting and dressing with minimal assist at times. Pt is Ind with toileting, shaving tasks.) Therapy Assessment - Therapy Assessment Detail (Pt is safe and Ind with self care activities and functional mobility using wheelchair.) Problem List - Problem List Physical Therapy Problem List: Detail (1) Balance impairment 2) Poor safety awareness 3) Inability to assess gait 4) Inability to assess bed mobility 5) LE diminished sensation) Occupational Therapy Problem List: Detail (1. Decreased Ind with showering 2. Decreased Ind with total body dressing 3. Decreased coordination needed for Ind ADLs 4. Decreased functional mobility needed for safe and Ind return home) Goals - Goals Physical Therapy Goals: GOALS MET: 1) Pt. will exhibit good understanding of body mechanics/safety awareness with all transfers. 2) Pt. will be independent with all transfers except shower transfers. 3) Pt. will be independent with bed mobility. 4) Pt. will verbalize and demonstrate repositioning techniques while seated to decrease pressure at the sacrum/lower back. Occupational Therapy Goals: Goals Met: 1. Pt will be safe and Ind with showering in sitting 2. Pt will be Ind with total body dressing 3. Pt will improve coordination to allow Ind with grooming/hygiene tasks 4. Pt will be safe and Ind with functional mobility needed for ADLs/IADLs. Prognosis - Prognosis Good Plan - Plan Physical Therapy Plan: The patient is to discharge to home on 08/02/17 and is to continue with HEP. Occupational Therapy Plan: Discharging home with home OT/PT.
[2017-08-03] MEDS: HEPARIN SODIUM FLUSH 100 UNITS/ML SYR 5ML IVP PRN (14:58)
--- NOTE | 2017-08-04 12:06 | Discharge Summary ---
DISCHARGE DIAGNOSES: 1. Diabetic foot ulcer with osteomyelitis, right foot. 2. Diabetes mellitus type 2 with insulin use. 3. Status post left above-knee amputation in 2009. 4. Peripheral arterial disease. 5. Hypercholesterolemia. 6. Hypertension which has resolved during this hospitalization. 7. Arthritis to both hands. 8. Chronic renal failure with his creatinine at 3.6 the day before discharge. It was 2.2 on 06/20/2017. 9. Physical deconditioning. 10. IV antibiotics, Cefzil, adjusted dose to 500 mg q.12 h. because of his renal insufficiency, chronic renal failure. 11. Ulcerated right foot being debrided by Dr. Camarena, the lead systems architect. His next appointment with Dr. Camarena is 08/17/2017. ATTENDING PHYSICIAN: Avi Llanes DO REASON FOR HOSPITALIZATION: The swing bed. The patient needed IV antibiotics for his osteomyelitis of the right foot with ulceration of the right foot. He also needed oral antibiotics, Flagyl and Cefzil were being used and were being followed by the infectious disease doctor, Dr. Roque out of [facility]. Dr. Camarena is his lead systems architect. He is also deconditioned, so he is placed in our swing bed program for further care. THERAPY PROVIDED: The patient had wound dressing changes periodically and Dr. Camarena debriding his foot [address] Roque, the infectious disease doctor, saw him on a weekly basis. His kidney status got worse throughout the hospitalization of the swing bed, so at this point we will recheck his kidney status in about 1 week after stopping the lisinopril, stopping the Lopid. His Cardizem has also been stopped. His blood pressure has been in a normal range today, actually running a little bit on the low side at 95/60. HOSPITAL COURSE: He has gotten stronger. He is feeling better. He is ready to go home. CONDITION ON DISCHARGE: Much improved. Discussed with him that the kidney status is getting worse. Will have to follow up on an outpatient basis with the kidney doctor after Dr. Garcia reevaluates him and his kidney function may improve back to his baseline after stopping the lisinopril and the Lopid. However, it could continue to get worse and go on to dialysis. At this point it's hard to tell. His potassium was slightly high. It came down to 4.5 after one dose of Kayexalate. It was 5.6 yesterday and it's 4.5 today. His most recent set of labs: WBC 8000, hemoglobin 8.4. He had 1 unit of blood transfused when his hemoglobin dropped to 6.4. He is on iron therapy and vitamin C therapy. Platelet count is 326,000. His potassium is 4.9, sodium 131, chloride 99. Carbon dioxide 13, anion gap 19, creatinine 3.6. They have a new BUN range, which I am very confused about. It sounds like it is not really a BUN, it is only a urate. It is 134. They tell me that it is not the same as BUN but yet we are reporting it out as a BUN. His glomerular filtration rate is 18. His calcium is 8.6. Iron is still low at 32. DISCHARGE INSTRUCTIONS: Follow up with Dr. Garcia on 08/09/2017. Follow up with Dr. Camarena as scheduled, 08/17/2017. Follow up with Dr. Roque on 08/19/2017. Dr. Garcia can schedule outpatient nephrology appointment when appropriate after he sees the patient. DEBBIE
== END 2017-08-03 16:20 | disposition still patient (30) | DRG 948 ==
LOC: MEDSURG 19:24
PROVIDERS: ADMIT Emergency Medicine; ATTEND Emergency Medicine
PROC: 30233N1 Transfusion of Nonautologous Red Blood Cells into Peripheral Vein, Percutaneous Approach (ICD-10-PCS; principal; 2017-06-19)
DX: R53.81 Other malaise (principal); M86.171 Other acute osteomyelitis, right ankle and foot; L97.511 Non-pressure chronic ulcer of other part of right foot limited to breakdown of skin; E11.22 Type 2 diabetes mellitus with diabetic chronic kidney disease; Z79.4 Long term (current) use of insulin; I10 Essential (primary) hypertension; E78.00 Pure hypercholesterolemia, unspecified; M19.042 Primary osteoarthritis, left hand; M19.041 Primary osteoarthritis, right hand; Z89.612 Acquired absence of left leg above knee; Z86.19 Personal history of other infectious and parasitic diseases; I73.9 Peripheral vascular disease, unspecified
CPT/HCPCS: 36416; 36430; 80048; 82272; 82607; 82746; 82948; 83540; 83550; 83735; 84132; 84450; 84460; 85014; 85018; 85025; 85027; 85651; 86140; 86850; 86900; 86901; 97110; 97165; 97530; 97535; 99306; 99309; J1650

== ENCOUNTER 2017-08-10 08:49 | Emergency (ER) | payer MEDICARE, SELFPAY ==
--- NOTE | 2017-08-10 09:16 | Emergency Department Record ---
History of Present Illness - General Chief complaint: Weakness Stated complaint: WEAKNESS Time Seen by Provider: 08/10/17 09:06 Source: Patient Mode of Arrival: Stretcher Limitations: No limitations - History of Present Illness Initial comments: The patient is here due to generalized weakness for 2-3 days. He was recently an inpatient here at [facility] for about 6 weeks due to osteomylitis of his R foot and was discharged a week ago. He was doing well but now is much weaker. There is no reported fever, chills, abdominal pain, vomiting, or diarrhea. He is having difficulty urinating at times. The patient does have DM and has had a L BKA and did leave the hospital with a Cr. of 3.6. The lab was rechecked 2 days ago and was 6.8. MD Complaint: Generalized weakness Onset/Timin -: Days(s) Associated Symptoms: Loss of appetite, Other - Mehdi Coma Scale Eye Response: (4) Open spontaneously Motor Response: (6) Obeys commands Verbal Response: (5) Oriented Mehdi Total: 15 - Related Data Previous Rx's Medication Instructions Recorded Nystatin 1 gm TOP BID #30 cream 04/09/16 Acetaminophen [Tylenol 500Mg Tab] 1,000 mg PO Q6H PRN 08/03/17 Ascorbic Acid [Vitamin C] 1,000 mg PO BID #60 tab 08/03/17 Cefazolin [Kefzol] 500 mg IV Q12HR #40 vial 08/03/17 Ferrous Sulfate [Iron] 325 mg PO BID #30 tab 08/03/17 Insulin Aspart [Novolog Flexpen] 1 unit SQ QIDINS ml 08/03/17 Insulin Detemir [Levemir Flextouch] 5 unit SQ BIDWM ml 08/03/17 Metronidazole [Flagyl] 500 mg PO Q8HR #60 tablet 08/03/17 Nystatin 15 gm TOP ASDIR PRN tube 08/03/17 Allergies Allergy/AdvReac Type Severity Reaction Status Date / Time amoxicillin trihydrate AdvReac DIARRHEA Verified 06/07/17 11:09 [From Augmentin] potassium clavulanate AdvReac DIARRHEA Verified 06/07/17 11:09 [From Augmentin] Travel Screening - Travel/Exposure Within Last 30 Days Have you traveled within the last 30 days?: No - Travel/Exposure Within Last Year Have you traveled outside the [place] in the last year?: No - Additonal Travel Details Have you been exposed to anyone with a communicable illness?: No - Travel Symptoms Symptom Screening: None Review of Systems Constitutional: Denies: Chills, Fever ENT: Denies: Congestion Respiratory: Denies: Cough Cardiovascular: Denies: Arrhythmia, Chest pain Past Medical History - SOCIAL HISTORY Smoking Status: Former smoker Alcohol Use: None Drug Use: None - RESPIRATORY Hx Respiratory Disorders: No - CARDIOVASCULAR Hx Cardio Disorders: Yes Hx Hypertension: Yes Hx Vascular Disease: Yes (left AKA amputation 2010 from DM) Comment:: high cholesterol - NEURO Hx Neuro Disorders: No Hx Seizures: No - GI Hx GI Disorders: No - Hx Genitourinary Disorders: No - ENDOCRINE Hx Endocrine Disorders: Yes Hx Diabetes: Yes (IDDM 2006 on lantus at home 85 units prior to hospitaliztion) - MUSCULOSKELETAL Hx Musculoskeletal Disorders: No Hx Arthritis: Yes (both hands) - PSYCH Hx Psych Problems: No - HEMATOLOGY/ONCOLOGY Hx Hematology/Oncology Disorders: No Family Medical History Any Significant Family History?: No Hx Cancer: Father Physical Exam - General General Appearance: Alert, Oriented x3, Cooperative, No acute distress - Head Head exam: Atraumatic, Normocephalic, Normal inspection - Eye Eye exam: Normal appearance, PERRL - Neck Neck exam: Normal inspection, Full ROM. negative: Tenderness - Respiratory Respiratory exam: Normal lung sounds bilaterally. negative: Respiratory distress - Cardiovascular Cardiovascular Exam: Regular rate, Normal rhythm, Normal heart sounds - GI/Abdominal GI/Abdominal exam: Soft, Normal bowel sounds. negative: Tenderness - Neurological Neurological exam: Alert. negative: Motor sensory deficit Course Vital Signs 08/10/17 08:52 Temperature 98.1 F Pulse Rate 92 H Respiratory 20 Rate Blood Pressure 121/66 Pulse Ox 100 - Reevaluation(s) Reevaluation #1: The patient is doing well. I did explain to him that it appears that his kidney function has decompensated to the point that he will need to be on Hemodialysis. He would like to go [place] [facility] [place]. 08/10/17 10:10 Reevaluation #2: I did discuss the case with Dr. Reyes and he does accept the patient to [facility] [place] a direct Admit. 08/10/17 10:32 Medical Decision Making - Data Complexity MDM Data: Labs Ordered and/or Reviewed, EKG Ordered and/or Reviewed - Lab Data Result diagrams: 08/10/17 09:24 08/10/17 09:24 - EKG Data -: EKG Interpreted by Me EKG: No Acute Changes, Unchanged From Previous Disposition Disposition: Transfer Clinical Impression: Renal failure (ARF), acute on chronic Qualifiers: Acute renal failure type: unspecified Chronic kidney disease stage: unspecified stage Qualified Code(s): N17.9 - Acute kidney failure, unspecified Disposition: Acute Care Hospital Transfer Transfer To: [facility] Reason For Transfer: Renal Failure Accepting Physician: Amy Time Discussed w/Accepting Physician: : Condition: (2) Stable Forms: Patient Portal Access Time of Disposition: 10:28 Quality - Quality Measures Quality Measures: N/A - Blood Pressure Screening View Details: Yes Does Patient Have Any of the Following: No Blood Pressure Classification: Pre-Hypertensive BP Reading Systolic Measurement: 131 Diastolic Measurement: 77 Screening for High Blood Pressure: < Pre-Hypertensive BP, F/U Documented > [ [id number]] Pre-Hypertensive Follow-up Interventions: Referral to alternative/primary care provider.
[2017-08-10 09:40] LABS: HEMATOCRIT 24.9 % (42.0-52.0); HEMOGLOBIN 7.8 gm/dl (14.0-18.0); MEAN CELL VOLUME 87.1 fl (81-97); MEAN CORPUSCULAR HEMOGLOBIN 27.2 pg (27-33); MEAN CORPUSCULAR HGB CONC 31.3 g/dl (32-36); MEAN PLATELET VOLUME 9.4 fl (7.4-10.4); PLATELET COUNT 293 K/uL (130-400); RED BLOOD COUNT 2.86 M/uL (4.40-5.70); WHITE BLOOD COUNT W/O DIFF 8.3 K/uL (4.2-12.2)
[2017-08-10] MEDS: HEPARIN SODIUM FLUSH 100 UNITS/ML SYR 5ML IVP ONE (09:40)
[2017-08-10 09:48] LABS: URINE APPEARANCE CLEAR; URINE BILIRUBIN NEGATIVE (NEGATIVE); URINE BLOOD MODERATE (NEGATIVE); URINE COLOR YELLOW; URINE GLUCOSE (UA) NEGATIVE (NEGATIVE); URINE KETONE TRACE (NEGATIVE); URINE LEUKOCYTE ESTERASE SMALL (NEGATIVE); URINE NITRITE NEGATIVE (NEGATIVE); URINE UROBILINOGEN 0.2 E.U./dL (0.20 - 1.00)
[2017-08-10 09:51] LABS: ALBUMIN 3.2 g/dL (4.0-5.0); BILIRUBIN,DIRECT 0.2 mg/dL (0-0.3); BILIRUBIN,TOTAL 0.2 mg/dL (0.2-1.0); HYPOCHROMIA 1+; PLATELET ESTIMATE NORMAL (NORMAL); TOTAL PROTEIN 6.9 g/dL (6.6-8.7)
[2017-08-10 09:55] LABS: URINE WBC >50 (0-2/hpf)
[2017-08-10 09:56] LABS: URINE BACTERIA FEW; URINE EPITHELIAL CELLS NONE SEEN (FEW)
[2017-08-10] MEDS: CIPROFLOXACIN HCL 500 MG TABLET PO ONE (10:16)
== END 2017-08-10 12:57 | disposition short-term general hospital (02) ==
LOC: ER 08:49
DX: N17.9 Acute kidney failure, unspecified (principal); R53.1 Weakness; E11.9 Type 2 diabetes mellitus without complications; I10 Essential (primary) hypertension; Z79.4 Long term (current) use of insulin; Z87.891 Personal history of nicotine dependence
CPT/HCPCS: 99285 ×2; 80076; 80048; 36416; 81001; 82948; 85027; 93005; 93010; J1642